=== PATIENT | male | born 1955 | race Caucasian/White ===

== ENCOUNTER 2017-09-09 07:42 | Day surgery (SDC) | payer BC ==
[~2017-09-09 07:42] MED LIST: Buffered Lidocaine 0.9% SYRIN* 5 ML/SYR SYRINGE INTRADERM ONE; Dexamethasone IV* 4 MG/ML 1 ML (4 MG) IV SLOW PU ONE
[2017-09-09] MEDS ORDERED: Buffered Lidocaine 0.9% SYRIN* 5 ML/SYR SYRINGE ONE (07:52)
[2017-09-09] MEDS ORDERED: ceFAZolin 2 GM PREMIX (*) 2 GM/50 ML BAG IVPB ONE (07:52)
[2017-09-09] MEDS ORDERED: Dexamethasone IV* 4 MG/ML 1 ML (4 MG) ONE (07:52)
[2017-09-09] MEDS ORDERED: Midazolam* 1 MG/ML 5 ML VIAL (5 MG) ONE ×2 (08:54→09:24)
[2017-09-09] MEDS ORDERED: Ketorolac INJ* 30 MG/ML 1 ML VIAL ONE (08:58)
[2017-09-09] MEDS ORDERED: Propofol* 10 MG/ML 20 ML BTL IV PUSH ONE (08:58)
[2017-09-09] MEDS ORDERED: Ondansetron INJ* 2 MG/ML VIAL ONE (08:58)
[2017-09-09] MEDS ORDERED: EPINEPHrine AMP 1 MG/ML ONE (09:24)
[2017-09-09] MEDS ORDERED: fentaNYL* 50 MCG/ML 5 ML VIAL (250 MCG VIAL) ONE (09:24)
[2017-09-09] MEDS ORDERED: Atracurium* 10 MG/ML 10 ML VIAL ONE (09:24)
[2017-09-09] MEDS ORDERED: Lidocaine 1% MPF wEPI 200,000* 30 ML SDV ONE (09:26)
[2017-09-09] MEDS ORDERED: Bupivacaine 0.5% SDV PF* 30 ML VIAL ONE (09:26)
[2017-09-09] MEDS ORDERED: Lidocaine 2% PF * 5 ML VIAL ONE (09:28)
[2017-09-09] MEDS ORDERED: DiMENhydriNATE IV* 50 MG/ML VIAL IV PUSH PRN (10:04)
[2017-09-09] MEDS ORDERED: Ondansetron INJ* 2 MG/ML VIAL IV PRN (10:04)
[2017-09-09] MEDS: fentaNYL* 50 MCG/ML 2 ML VIAL (100 MCG VIAL) IV PRN ×4 (10:43→11:24)
[2017-09-09] MEDS ORDERED: fentaNYL* 50 MCG/ML 2 ML VIAL (100 MCG VIAL) ONE ×2 (10:43→10:48)
[2017-09-09] MEDS ORDERED: HYDROmorphone INJ* 1 MG/ML CARPUJECT SYRINGE ONE (10:55)
[2017-09-09] MEDS: HYDROmorphone INJ* 1 MG/ML CARPUJECT SYRINGE IV SLOW PU PRN ×2 (10:55→11:13)
[2017-09-09] MEDS: oxyCODONE/Acetamin 5/325 MG* TAB PO PRN ×2 (12:01→12:02)
[2017-09-09] MEDS ORDERED: oxyCODONE/Acetamin 5/325 MG* TAB ONE (12:02)
[2017-09-09 13:29] VITALS: BP 158/86
--- NOTE | 2017-09-12 02:25 | OP ---
DATE OF OPERATION: 09/09/17 - [facility] DATE OF : 51 SURGEON: Mark Jiménez MD [employer] TECHNICIAN: CHEYENNE Rowe. A physician bricklayer's assistant was required for the length of procedure for assistance with set up, instrumentation, manipulation, retraction of the knee. ANESTHESIOLOGIST: Ahsan Pena MD ANESTHESIA: General anesthesia, local anesthesia with 10 cc of lidocaine and Marcaine 1:1 mixture. PRE-OP DIAGNOSES: 1. Left knee medial meniscus tear. 2. Left knee osteoarthritis. POST-OP DIAGNOSES: 1. Left knee medial meniscus tear. 2. Left knee osteoarthritis. OPERATIVE PROCEDURE: Left knee arthroscopic partial medial meniscectomy. INDICATIONS: The patient is a 62-year-old man, whom I have followed for left knee pain. The patient had had a worsening medial knee pain over multiple years. I first saw him 9 months prior to surgery and he described medial knee pain when he walked, went up and downstairs, or chopped wood. The patient had initially been scheduled for a partial medial meniscectomy by an outside surgeon , but preferred to have his care switched to [facility] in [place]. The patient's pain was insufficiently reduced with ibuprofen, tramadol from an outside doctor, cortisone injection, Celebrex, home exercises, physical therapy. The patient responded insufficiently to that nonoperative management and eventually decided on surgery. The patient had some possible catching in the knee and consistent medial joint line pain, although no locking or swelling. Occasional limp. An MRI had shown a horizontal tear at the body of the medial meniscus with extrusion of some of the medial meniscus body as well as a clearly displaced fragment into the inferomedial gutter of a piece of meniscus. There is some adjacent edema in the medial tibial plateau. The patient opted for surgery. We discussed risks and potential complications of surgery including bleeding, infection, nerve or blood vessel injury, knee pain, stiffness, osteoarthritis, blood clot. ANTIBIOTICS: Ancef 2 g IV. IV FLUIDS: 950 cc crystalloid. TOURNIQUET TIME: 30 minutes at 300 mmHg. COMPLICATIONS: None. ESTIMATED BLOOD LOSS: Minimal. SPECIMEN: None. IMPLANTS: None. DESCRIPTION OF PROCEDURE: Preoperatively in the preoperative holding, a surgical consent was obtained, written. Operative extremity was marked in the preoperative holding. The patient was taken back to the operating room and placed supine on the operating room table. The patient was sedated and LMA was placed. A left proximal thigh tourniquet was applied but not yet elevated. The left distal thigh was placed in a circumferential thigh gramajo. The left lower extremity was prepped with ChloraPrep from foot to thigh. Left lower extremity was draped. Surgical time-out was performed. Esmarch was applied and tourniquet was elevated to 300 mmHg. Anterolateral knee arthroscopy portal was established using standard technique. Diagnostic arthroscopy was commenced. The patient had some fraying, consistent with grade 2 changes on the undersurface of the patella. I next moved down to the medial compartment. The patient had a clear tearing of the body and posterior horn of the medial meniscus. The tear was complex in shape. There was no clearly extruded fragment inferomedially. There was a clear area of grade 4 loss of articular cartilage in or near to rim of the medial tibial plateau. Anteromedial knee arthroscopy portal was established using a standard technique. The medial meniscus was debrided back to a stable rim, slowly and thoughtfully, working from both the anteromedial and anterolateral portals with care not to remove too much meniscus. The patient had a parrot beak-like tear about the posterior horn near the root, but then had a more degenerative-type horizontal tear more medially about the posterior horn. I debrided the meniscus back to a stable rim and confirmed the stability with an arthroscopic probe. There were no clear displaced fragments remaining superior or inferior to the meniscus. I then continued my diagnostic arthroscopy. ACL intact. It should be noted that there was some wear of the medial femoral condyle more centrally, grade 2 changes. In the lateral compartment, there was no clear meniscus injury or articular cartilage injury. I then returned to the patellofemoral compartment and debrided some inflamed synovitic tissue in that compartment. I removed the instruments and fluid. Closed 2 skin incisions with figure-of-8 stitches using nylon 4-0 suture. Injected approximately 10 cc of local anesthetic in the subcutaneous tissue about these 2 surgical incisions. Xeroform, 4x4's, ABDs, [place] bandage from foot to proximal thigh. Cooling unit on the left knee. The patient was awakened, extubated, and brought to the PACU. DISPOSITION: The patient will follow my wound care instructions on my discharge paper work. Percocet as needed for pain. Aspirin for 2 weeks b.i.d. to avoid a blood clot. The patient will schedule physical therapy early next for aggressive strengthening and range of motion. I will see him in 10 to 14 days for a postoperative wound check. [id number]/[facility] #: [id number] ADALI
== END 2017-09-09 12:28 | disposition home or self-care (01) ==
LOC: OR 07:42
PROVIDERS: ATTEND Orthopaedic Surgery
DX: S83.242D Other tear of medial meniscus, current injury, left knee, subsequent encounter (principal); M17.12 Unilateral primary osteoarthritis, left knee; Z87.891 Personal history of nicotine dependence; M25.511 Pain in right shoulder; M54.12 Radiculopathy, cervical region; X58.XXXD Exposure to other specified factors, subsequent encounter; Y92.9 Unspecified place or not applicable
CPT/HCPCS: A9270-GY; J0171; J0690; J1100; J1170; J1885; J2001; J2250; J2405; J2704; J3010

== ENCOUNTER 2018-03-13 15:45 | Emergency (ER) | payer MEDICARE ==
[2018-03-13] MEDS ORDERED: NS 0.9% 1000 ML* 1,000 ML IV ONE (16:10)
[2018-03-13 16:32] LABS: ABS Basophils 0.1 10^3/ul (0-0.2); ABS Eosinophils 0.1 10^3/ul (0-0.6); ABS Lymphocytes 1.3 10^3/ul (1.0-4.8); ABS Monocytes 0.8 10^3/ul (0-0.8); ABS Neutrophils 4.4 10^3/ul (1.5-7.7); ABS Nucleated RBC 0 10^3/ul; Hematocrit 38 % (42-52); Hemoglobin 13.4 g/dl (14.0-18.0); Lymphocyte % 19.7 % (25-47); Mean Corpuscular HGB Conc 35 g/dl (31-36); Mean Corpuscular Hemoglobin 30 pg (27-31); Mean Corpuscular Volume 86 fL (80-94); Mean Platelet Volume 8.3 um3 (7.4-10.4); Nucleated Red Blood Cells % 0.1; Platelet Count 225 10^3/ul (150-450); Red Blood Count 4.44 10^6/ul (4.0-5.4); Red Cell Distribution Width 14 % (10.5-15); White Blood Count 6.6 10^3/ul (3.5-10.8)
--- OUTSIDE RECORDS SUMMARY | 2018-03-13 16:37 | XMS REPORT ---
:1955 External Reference #:[id number] Author Organization [employer] Address [address] [address] Phone [phone] Care Team Providers Name Role Phone Jude Marrero III, MD Primary Care Physician Unavailable Payers Type Date Identification Numbers Payment Provider Subscriber Medicare Primary Effective: Policy Number: Medicare Sherron Winkler JR 2018 [id number] PayID: [id number] [address] [place] [address] [facility] Policy Number: [id number] [facility] Sherron Winkler JR PayID: [id number] [address] [place] [address] Problems Date Description Provider Status Onset: 01/19/2012 Gastroesophageal reflux disease Jude Marrero M.D. Active Onset: 01/19/2012 Disorder of shoulder Jude Marrero M.D. Active Onset: 06/12/2012 Anxiety state Jude Marrero M.D. 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 Previously 1.5 ppd max. Began age 12, quit age 20 Exercise Type/Frequency Exercises sporadically occ active around the house Allergies, Adverse Reactions, Alerts Date Description Reaction Status Severity Comments 01/19/2012 NKDA active 01/19/2012 seasonal active Medications Medication Date Status Form Strength Qnty SIG Indications Ordering Provider Olopatadine HCL 01/13 Active Solution 0.1% 5ml 1 drop to J30.9 Jude Hawley /2015 both eyes Elida, twice a M.D. day as needed Prilosec Active Capsules DR 20mg 30cap 1 po qd Unknown /0000 s Multivitamins Active Tablets 30tab 1 po qd Unknown / s Epipen 2-Oswaldo Active Solution 0.3mg/0.3 1unit use as Unknown / Auto-Inject ML s directed Hydrocortisone Active Cream 0.5% apply Unknown topically twice a day as needed Nasonex Active Suspension 50mcg/Act OTC Unknown / Terazosin HCL Active Capsules 10mg take 1 Unknown capsule by mouth every evening Clonazepam Active Tablets 1mg 1/2 a tab Unknown / in Am; 1 tab in pm (TDD 1.5 mg) Bupropion HCL ER Active Tablets ER 150mg 3 tabs in Unknown (XL) /0000 24HR the morning with food Duloxetine HCL Active Caps DR 30mg 3 tabs by Unknown /0000 Part mouth every day Psyllium Seed Active 1 daily Unknown Husk Oxycodone-Acetami 09/09 Hx Tablets 5-325mg 40tab 1 tabs by Mark bryan s mouth F - every 6 Tino, 08 hours as needed for pain Aspirin 09/09 Hx Tablets 325mg 28tab take 1 s twice a F - day x 14 Tino, 01/29 days Tramadol HCL 08/23 Hx Tablets 50mg 28tab 1-2 S83.242D Rohit s tablets [employer] CUSTODIAN - every 12 /08 hours needed for pain. Methylprednisolon 08/19 Hx TBPK 4mg 21uni take per Mark mcpherson ts dosepak F - instructio Tino, 08/26 ns. Celebrex 12/07 Hx Capsules 100mg 60cap 1 tab by S83.242A s mouth F - twice a Tino, 01/29 day as needed Penicillin V 11/26 Hx Tablets 500mg 20tab 1 tablet J02.9 Rohit s by mouth [employer], CUSTODIAN - twice a 12/06 day for days Lidocaine Viscous 11/26 Hx Solution 2% 100un gargle J02.9 Rohit its with 15ml [employer], CUSTODIAN - every 4 12/03 hours needed for throat pain. Acyclovir 09/11 Hx Ointment 5% 30gm apply 5 Jude E. times/day Elida, - to M.D. 01/13 area. Hydrocodone-Aceta 08/05 Hx Tablets 5-325mg 180ta 1-2 tabs V41.1 Isaias [facility] bs by mouth Scott, CUSTODIAN - q4 hours 12/31 as needed pain limit 6 tabs per day Alprazolam 09/28 Hx Tablets 0.5mg 30tab 1/2-1 by F41.9 Jude Hawley s mouth lana Marrero, - to three M.D. 01/29 times day as needed Prozac 01/12 Hx Capsules 40mg 90cap 1 po qd Rohit Ezra Johnson M.D. 08/23 Prozac 12/15 Hx Capsules 20mg 90cap 1 po qd Jude Rohit shikha Marrero - M.D. 01/12 Bactroban 10/12 Hx Ointment 2% 15gra apply to ms areas tid Elida, - for 5-7 M.D. 11/14 days needed Buspirone HCL 06/12 Hx Tablets 15mg 60tab 1 po bid 300.00 Jude Rohit shikha aMrrero, - M.D. 11/14 Zolpidem Tartrate 06/12 Hx Tablets 10mg 30tab 1 tab by F41.9 Jude Hawley s mouth Elida, - every M.D. 01/29 night at bedtime as needed Carisoprodol Hx Tablets 350mg 45tab one po tid Unknown /0000 s prn spasm - 05/26 Alprazolam Hx Tablets 0.5mg 60tab 1 po bid Unknown /0000 s prn - 09/11 [facility] [place] Wort Hx Capsules 150mg 120ca 2 po qd Unknown /0000 ps - 07/10 Saw [place] Hx Capsules 80mg 1 po daily Unknown /0000 - 09/[address] 81mg 90tab 1 po Unknown /0000 s occasional - ly 01/25 Ciprofloxacin HCL Hx Tablets 500mg pt not Tenkate, /0000 taking Erin Alfred MD 08/23 Ibuprofen Hx Tablets 800mg Tenkate, /0000 Erin Alfred MD 09/28 Metronidazole Hx Tablets 500mg pt not Tenkate, /0000 taking Erin Alfred MD 01/25 Oxycodone/Acetami Hx Tablets 5-325mg pt not Tenkate, nophen /0000 taking Erin Alfred MD 01/25 Finacea Hx Gel 15% Unknown /0000 - 07/16 Amitriptyline HCL Hx Tablets 25mg 1 po at hs Unknown /0000 prn - 01/13 Fluticasone Hx Suspension 50mcg/Act 3unit 1 spray Jude E. Propionate /0000 s Ezra Yadav M.D. 01/13 daily needed Medications Administered in Office Medication Date Status Form Strength Qnty SIG Indications Ordering Provider Triamcinolone 02/07/ Administered Injection Raúl (Kenalog) 2017 MD Waqas Depomedrol 40MG 10/20/ Administered Injection Mark Monroy 2016 MD Tino Depomedrol 40MG 12/07/ Administered Injection Mark Monroy 2016 MD Tino Depomedrol 80MG 01/16/ Administered Injection Laura Sol M.D. Immunizations CPT Code Status Date Vaccine Reaction Lot # [id number] Given 02/24/2018 Tdap - No immediate reaction [id number] Tetanus/Diptheria/Acellular noted. Pertussis [id number] Given 01/30/2018 Pneumococcal Conjugate [id number] Vaccine 13 Valent For Intramuscular Use 03642 Given 08/08/2017 Influenza Virus Vaccine, [id number] Quadrivalent, Split, Preservative Free 05776 Given 08/30/2016 Influenza Virus Vaccine, [id number] Quadrivalent, Split Virus, [place] Use 93592 Given 08/12/2015 Influenza Virus Vaccine, [id number] Quadrivalent, Split, Preservative Free 47687 Given 07/17/2014 Influenza Virus Vaccine, Quadrivalent, Split, Preservative Free 62167 Given 07/17/2014 Influenza Virus Vaccine, [id number] Quadrivalent, Split, Preservative Free 55399 Given 07/01/2014 Zoster (Zostavax) [id number] 99177 Given 08/23/2013 Flu Vaccine Split Virus [id number] Preservative Free For Indiv 3Yr Older [id number] Given 07/19/2012 Fluzone Vaccine [id number] 86880 Given 10/24/2007 Tetanus And Diptheria (Td) For Adult Use Preservative Free Vital Signs Date Vital Result Comment 03/07/2018 Height 67.7 inches 5'7.70" Weight 170.00 lb Heart Rate 78 /min BP Systolic 110 mmHg BP Diastolic 72 mmHg Respiratory Rate 12 /min Pain Level 1 BMI (Body Mass Index) 26.1 kg/m2 01/30/2018 Height 67.7 inches 5'7.70" Weight 182.00 lb Heart Rate 64 /min BP Systolic Sitting 130 mmHg BP Diastolic Sitting 84 mmHg O2 % BldC Oximetry 96 % BMI (Body Mass Index) 27.9 kg/m2 12/08/2017 Height 69 inches 5'9" Heart Rate 71 /min BP Systolic 120 mmHg BP Diastolic 86 mmHg Respiratory Rate 16 /min Body Temperature 97.0 F Pain Level 2 10/20/2017 Height 69 inches 5'9" Weight 191.00 lb Heart Rate 66 /min BP Systolic Sitting 122 mmHg BP Diastolic Sitting 82 mmHg Body Temperature 97.8 F Pain Level 4 BMI (Body Mass Index) 28.2 kg/m2 09/20/2017 Height 69 inches 5'9" Weight 193.00 lb Heart Rate 68 /min Respiratory Rate 14 /min Body Temperature 97.4 F Pain Level 5 BMI (Body Mass Index) 28.5 kg/m2 08/23/2017 Height 69 inches 5'9" Weight 193.00 lb Heart Rate 65 /min BP Systolic Sitting 120 mmHg BP Diastolic Sitting 80 mmHg O2 % BldC Oximetry 98 % BMI (Body Mass Index) 28.5 kg/m2 08/16/2017 Height 69 inches 5'9" Weight 188.00 lb Heart Rate 95 /min Respiratory Rate 14 /min Body Temperature 97.0 F Pain Level 5 BMI (Body Mass Index) 27.8 kg/m2 08/08/2017 Weight 189.00 lb Heart Rate 86 /min BP Systolic Sitting 129 mmHg BP Diastolic Sitting 95 mmHg Body Temperature 97.4 F Pain Level 4 Left knee torn meniscus/arthritis O2 % BldC Oximetry 98 % 06/20/2017 Height 69 inches 5'9" Weight 187.00 lb BP Systolic 128 mmHg BP Diastolic 82 mmHg Respiratory Rate 18 /min Body Temperature 97.1 F Pain Level 4 BMI (Body Mass Index) 27.6 kg/m2 05/16/2017 Height 69 inches 5'9" Weight 187.00 lb Heart Rate 63 /min BP Systolic 142 mmHg BP Diastolic 80 mmHg Body Temperature 96.3 F O2 % BldC Oximetry 99 % BMI (Body Mass Index) 27.6 kg/m2 01/28/2017 Height 69 inches 5'9" Weight 193.00 lb Heart Rate 58 /min BP Systolic Sitting 138 mmHg BP Diastolic Sitting 84 mmHg Respiratory Rate 15 /min Body Temperature 98.0 F O2 % BldC Oximetry 98 % BMI (Body Mass Index) 28.5 kg/m2 12/07/2016 Height 69 inches 5'9" Weight 188.00 lb Heart Rate 69 /min BP Systolic 150 mmHg BP Diastolic 89 mmHg BMI (Body Mass Index) 27.8 kg/m2 11/26/2016 Height 68.5 inches 5'8.50" Weight 189.50 lb Heart Rate 87 /min BP Systolic 140 mmHg BP Diastolic 82 mmHg Body Temperature 99.0 F O2 % BldC Oximetry 97 % BMI (Body Mass Index) 28.4 kg/m2 01/14/2016 Height 68.5 inches 5'8.50" Weight 195.00 lb Heart Rate 62 /min BP Systolic 130 mmHg BP Diastolic 88 mmHg Body Temperature 97.1 F O2 % BldC Oximetry 98 % BMI (Body Mass Index) 29.2 kg/m2 09/11/2015 Weight 189.00 lb Heart Rate 87 /min BP Systolic Sitting 144 mmHg BP Diastolic Sitting 86 mmHg Body Temperature 96.6 F 02/24/2015 Height 69.25 inches 5'9.25" Weight 185.00 lb Pain Level 0 BMI (Body Mass Index) 27.1 kg/m2 01/16/2015 Height 69.25 inches 5'9.25" Weight 185.00 lb Heart Rate 66 /min BP Systolic 133 mmHg BP Diastolic 96 mmHg Pain Level 5 BMI (Body Mass Index) 27.1 kg/m2 12/31/2014 Height 69.25 inches 5'9.25" Weight 187.50 lb Heart Rate 70 /min BP Systolic Sitting 130 mmHg BP Diastolic Sitting 74 mmHg O2 % BldC Oximetry 96 % BMI (Body Mass Index) 27.5 kg/m2 08/05/2014 Weight 189.00 lb Heart Rate 88 /min BP Systolic Sitting 126 mmHg BP Diastolic Sitting 70 mmHg Body Temperature 98.3 F 07/17/2014 Height 68.75 inches 5'8.75" Weight 187.50 lb Heart Rate 57 /min BP Systolic Sitting 123 mmHg BP Diastolic Sitting 77 mmHg Body Temperature 97.3 F O2 % BldC Oximetry 98 % BMI (Body Mass Index) 27.9 kg/m2 07/01/2014 Height 68.75 inches 5'8.75" Weight 191.50 lb Heart Rate 68 /min BP Systolic Sitting 112 mmHg BP Diastolic Sitting 68 mmHg Body Temperature 97.1 F BMI (Body Mass Index) 28.5 kg/m2 2014 Weight 190.00 lb Heart Rate 74 /min BP Systolic Sitting 124 mmHg BP Diastolic Sitting 85 mmHg Body Temperature 96.8 F 09/28/2013 Height 69 inches 5'9" Weight 182.75 lb Heart Rate 64 /min BP Systolic Sitting 142 mmHg BP Diastolic Sitting 88 mmHg BMI (Body Mass Index) 27.0 kg/m2 08/23/2013 Height 68.75 inches 5'8.75" Weight 191.00 lb Heart Rate 64 /min BP Systolic Sitting 116 mmHg BP Diastolic Sitting 78 mmHg BMI (Body Mass Index) 28.4 kg/m2 04/12/2013 Height 68.75 inches 5'8.75" Weight 181.00 lb Heart Rate 62 /min BP Systolic Sitting 136 mmHg BP Diastolic Sitting 84 mmHg BMI (Body Mass Index) 26.9 kg/m2 01/12/2013 Height 68.75 inches 5'8.75" Weight 185.00 lb Heart Rate 74 /min BP Systolic Sitting 136 mmHg BP Diastolic Sitting 76 mmHg BMI (Body Mass Index) 27.5 kg/m2 11/14/2012 Height 68.75 inches 5'8.75" Weight 185.50 lb Heart Rate 66 /min BP Systolic Sitting 122 mmHg BP Diastolic Sitting 72 mmHg BMI (Body Mass Index) 27.6 kg/m2 10/12/2012 Height 68.75 inches 5'8.75" Weight 192.00 lb Heart Rate 88 /min BP Systolic Sitting 102 mmHg BP Diastolic Sitting 68 mmHg BMI (Body Mass Index) 28.6 kg/m2 09/11/2012 Height 68.75 inches 5'8.75" Weight 186.00 lb Heart Rate 76 /min BP Systolic Sitting 110 mmHg BP Diastolic Sitting 70 mmHg BMI (Body Mass Index) 27.7 kg/m2 07/10/2012 Height 68.75 inches 5'8.75" Weight 188.00 lb Heart Rate 60 /min BP Systolic Sitting 104 mmHg BP Diastolic Sitting 74 mmHg BMI (Body Mass Index) 28.0 kg/m2 06/12/2012 Height 69 inches 5'9" Weight 186.00 lb Heart Rate 60 /min BP Systolic Sitting 132 mmHg BP Diastolic Sitting 90 mmHg BMI (Body Mass Index) 27.5 kg/m2 05/26/2012 Height 69 inches 5'9" Weight 184.00 lb Heart Rate 66 /min BP Systolic Sitting 118 mmHg BP Diastolic Sitting 70 mmHg Body Temperature 97.5 F lt ear BMI (Body Mass Index) 27.2 kg/m2 01/19/2012 Height 69 inches 5'9" Weight 189.00 lb Heart Rate 62 /min BP Systolic Sitting 142 mmHg BP Diastolic Sitting 90 mmHg BMI (Body Mass Index) 27.9 kg/m2 Results Test Date Test Result H/L Range Note CBC Auto Diff 08/24/2017 White Blood Count 7.5 10^3/uL 3.5-10.8 Red Blood Count 4.68 10^6/uL 4.0-5.4 Hemoglobin 13.9 g/dL Low 14.0-18.0 Hematocrit 41 % Low 42-52 Mean Corpuscular Volume 87 fL 80-94 Mean Corpuscular Hemoglobin 30 pg 27-31 Mean Corpuscular HGB Conc 34 g/dL 31-36 Red Cell Distribution Width 13 % 10.5-15 Platelet Count 193 10^3/uL 150-450 Mean Platelet Volume 9 um3 7.4-10.4 Abs Neutrophils 5.7 10^3/uL 1.5-7.7 Abs Lymphocytes 0.9 10^3/uL Low 1.0-4.8 Abs Monocytes 0.8 10^3/uL 0-0.8 Abs Eosinophils 0 10^3/uL 0-0.6 Abs Basophils 0 10^3/uL 0-0.2 Abs Nucleated RBC 0 10^3/uL Granulocyte % 76.0 % 38-83 Lymphocyte % 12.4 % Low 25-47 Monocyte % 10.7 % High 1-9 Eosinophil % 0.5 % 0-6 Basophil % 0.4 % 0-2 Nucleated Red Blood Cells % 0 Basic Metabolic Panel 08/24/2017 Sodium 136 mmol/L 133-145 Potassium 3.9 mmol/L 3.5-5.0 Chloride 102 mmol/L 101-111 Co2 Carbon Dioxide 27 mmol/L 22-32 Anion Gap 7 mmol/L 2-11 Glucose 93 mg/dL 70-100 Blood Urea Nitrogen 25 mg/dL High 6-24 Creatinine 1.01 mg/dL 0.67-1.17 BUN/Creatinine Ratio 24.8 High 8-20 Calcium 9.6 mg/dL 8.6-10.3 Egfr Non- 74.4 >60 Egfr 95.6 >60 1 Laboratory test 11/26/2016 Culture Throat SEE RESULT BELOW 2, 3 finding Laboratory test 11/26/2016 Culture Throat Negative finding Laboratory test 08/04/2016 Surgical Interface Order SEE RESULT BELOW 4 , 5 finding Lipid Profile 01/07/2016 Triglycerides 212 mg/dL 6 (Trig/Chol/HDL) Cholesterol 168 mg/dL 7 HDL Cholesterol 30.1 mg/dL 8 LDL Cholesterol 96 mg/dL 9 Laboratory test finding 01/07/2016 Glucose 98 mg/dL 70-100 Hemoglobin A1c (Glyco HGB) 5.2 % Less than 6.0 10 Laboratory test 06/26/2014 Hepatitis C Nonreactive Nonreactive 11, 12 finding Antibody Basic Metabolic Panel 06/26/2014 Sodium 138 mmol/L 133-145 11 Potassium 3.9 mmol/L 3.7-5.6 11 Chloride 104 mmol/L 101-111 11 Co2 Carbon Dioxide 29 mmol/L 22-32 11 Anion Gap 5 mmol/L 2-11 11 Glucose 105 mg/dL High 70-100 11 Blood Urea Nitrogen 19 mg/dL 6-24 11 Creatinine 1.11 mg/dL 0.67-1.17 11 BUN/Creatinine Ratio 17.1 8-20 11 Calcium 9.4 mg/dL 8.6-10.3 11 Egfr Non- 67.3 >60 11 Egfr 86.6 >60 11, 13 Lipid Profile (Trig/Chol/HDL) 06/26/2014 Triglycerides 334 mg/dL 11, 14 Cholesterol 176 mg/dL 11, 15 HDL Cholesterol 26.4 mg/dL 11, 16 LDL Cholesterol 83 mg/dL 11, 17 Basic Metabolic Panel 08/21/2013 Sodium 139 mmol/L 133-145 Potassium 3.9 mmol/L 3.5-5.0 Chloride 104 mmol/L 101-111 Co2 Carbon Dioxide 30.0 mmol/L 22-32 Anion Gap 5.0 mmol/L 2-11 Glucose 100 mg/dL 70-100 Blood Urea Nitrogen 12 mg/dL 6-24 Creatinine 0.90 mg/dL 0.50-1.40 BUN/Creatinine Ratio 13.3 8-20 Calcium 9.3 mg/dL 8.1-9.9 Egfr Non- 86.1 >60 Egfr 110.7 >60 18 CBC Auto Diff 08/21/2013 White Blood Count 5.2 10^3/uL 4.8-10.8 Red Blood Count 4.50 10^6/uL 4.0-5.4 Hemoglobin 13.7 g/dL Low 14.0-18.0 Hematocrit 39 % Low 42-52 Mean Corpuscular Volume 87 fL 80-94 Mean Corpuscular Hemoglobin 30 pg 27-31 Mean Corpuscular HGB Conc 35 g/dL 31-36 Red Cell Distribution Width 13 % 10.5-15 Platelet Count 174 10^3/uL 150-450 Mean Platelet Volume 9 um3 7.4-10.4 Abs Neutrophils 3.6 10^3/uL 1.5-7.7 Abs Lymphocytes 0.9 10^3/uL Low 1.0-4.8 Abs Monocytes 0.7 10^3/uL 0-0.8 Abs Eosinophils 0.1 10^3/uL 0-0.6 Abs Basophils 0 10^3/uL 0-0.2 Abs Nucleated RBC 0.01 10^3/uL Granulocyte % 67.8 % 38-83 Lymphocyte % 17.2 % Low 25-47 Monocyte % 12.6 % High 1-9 Eosinophil % 1.7 % 0-6 Basophil % 0.7 % 0-2 Nucleated Red Blood Cells % 0.2 Urinalysis 07/10/2013 Urine Color Yellow Urine Appearance Clear Urine Specific Eure 1.014 1.010-1.030 Urine Esterase Negative Negative Urine Nitrate Negative Negative Urine Urobilinogen Negative E.U./dL Negative Urine Protein Negative mg/dL Negative Urine pH 7.5 5-9 Urine Blood Negative Negative Urine Ketones Trace mg/dL Negative Urine Bilirubin Negative Negative Urine Glucose Negative mg/dL Negative CBC Auto Diff 07/10/2013 White Blood Count 10.7 10^3/uL 4.8-10.8 Red Blood Count 4.66 10^6/uL 4.0-5.4 Hemoglobin 14.4 g/dL 14.0-18.0 Hematocrit 41 % Low 42-52 Mean Corpuscular Volume 88 fL 80-94 Mean Corpuscular Hemoglobin 31 pg 27-31 Mean Corpuscular HGB Conc 35 g/dL 31-36 Red Cell Distribution Width 13 % 10.5-15 Platelet Count 187 10^3/uL 150-450 Mean Platelet Volume 9 um3 7.4-10.4 Abs Neutrophils 8.9 10^3/uL High 1.5-7.7 Abs Lymphocytes 0.7 10^3/uL Low 1.0-4.8 Abs Monocytes 1.0 10^3/uL High 0-0.8 Abs Eosinophils 0 10^3/uL 0-0.6 Abs Basophils 0 10^3/uL 0-0.2 Abs Nucleated RBC 0.02 10^3/uL Granulocyte % 83.0 % 38-83 Lymphocyte % 6.9 % Low 25-47 Monocyte % 9.6 % High 1-9 Eosinophil % 0.4 % 0-6 Basophil % 0.1 % 0-2 Nucleated Red Blood Cells % 0.1 Comp Metabolic Panel 07/10/2013 Sodium 136 mmol/L 133-145 Potassium 3.4 mmol/L Low 3.5-5.0 Chloride 104 mmol/L 101-111 Co2 Carbon Dioxide 27.0 mmol/L 22-32 Anion Gap 5.0 mmol/L 2-11 Glucose 96 mg/dL 70-100 Blood Urea Nitrogen 16 mg/dL 6-24 Creatinine 1.00 mg/dL 0.50-1.40 BUN/Creatinine Ratio 16.0 8-20 Calcium 9.2 mg/dL 8.1-9.9 Total Protein 7.1 g/dL 6.2-8.1 Albumin 4.1 g/dL 3.2-5.2 Globulin 3.0 g/dL 2-4 Albumin/Globulin Ratio 1.4 1-3 Total Bilirubin 1.5 mg/dL 0.4-1.5 Alkaline Phosphatase 70 U/L 30-110 Alt 48 U/L 14-54 Ast 32 U/L 12-42 Egfr Non- 76.2 >60 Egfr 98.0 >60 19 Laboratory test finding 07/10/2013 Lipase 18 U/L Low 22-51 C Reactive Protein 1.8 mg/dL High Less than 0.5 Laboratory test finding 11/11/2012 Lipase 23 U/L 22-51 Creatine Kinase 122 U/L 0-200 CKMB 1.7 ng/mL 0.3-4.0 20 Troponin I 0.01 ng/mL 0-0.06 21 Myoglobin 47.60 ng/mL 17.4-105.7 C Reactive Protein 2.6 mg/dL High Less than 0.5 Comp Metabolic Panel 11/11/2012 Sodium 136 mmol/L 133-145 Potassium 4.2 mmol/L 3.5-5.0 Chloride 104 mmol/L 101-111 Co2 Carbon Dioxide 21.0 mmol/L Low 22-32 Anion Gap 11.0 mmol/L 2-11 Glucose 91 mg/dL 70-100 Blood Urea Nitrogen 17 mg/dL 6-24 Creatinine 1.20 mg/dL 0.50-1.40 BUN/Creatinine Ratio 14.2 8-20 Calcium 10.0 mg/dL High 8.1-9.9 Total Protein 7.7 g/dL 6.2-8.1 Albumin 4.5 g/dL 3.6-5.4 Globulin 3.2 g/dL 2-4 Albumin/Globulin Ratio 1.4 1-3 Total Bilirubin 1.2 mg/dL 0.4-1.5 Alkaline Phosphatase 83 U/L 30-110 Alt 23 U/L 14-54 Ast 26 U/L 12-42 Egfr Non- 62.0 >60 Egfr 79.7 >60 22 CBC Auto Diff 11/11/2012 White Blood Count 15.5 10^3/uL High 4.8-10.8 Red Blood Count 5.21 10^6/uL 4.0-5.4 Hemoglobin 15.2 g/dL 14.0-18.0 Hematocrit 45 % 42-52 Mean Corpuscular Volume 86 fL 80-94 Mean Corpuscular Hemoglobin 29 pg 27-31 Mean Corpuscular HGB Conc 34 g/dL 31-36 Red Cell Distribution Width 13 % 10.5-15 Platelet Count 220 10^3/uL 150-450 Mean Platelet Volume 10 um3 7.4-10.4 Abs Neutrophils 12.4 10^3/uL High 1.5-7.7 Abs Lymphocytes 1.6 10^3/uL 1.0-4.8 Abs Monocytes 1.4 10^3/uL High 0-0.8 Abs Eosinophils 0.1 10^3/uL 0-0.6 Abs Basophils 0.1 10^3/uL 0-0.2 Abs Nucleated RBC 0 10^3/uL Granulocyte % 79.6 % 38-83 Lymphocyte % 10.4 % Low 25-47 Monocyte % 9.1 % High 1-9 Eosinophil % 0.5 % 0-6 Basophil % 0.4 % 0-2 Nucleated Red Blood Cells % 0 Stool For Blood 11/11/2012 Stool Occult Blood (SEE NOTE) 23 Urine Culture And 11/11/2012 Urine Culture (SEE NOTE) 24 Sensitivities CBC With Manual Diff 08/28/2012 White Blood Count 5.9 10^3/uL 4.8-10.8 Red Blood Count 4.85 10^6/uL 4.0-5.4 Hemoglobin 14.8 g/dL 14.0-18.0 Hematocrit 42 % 42-52 Mean Corpuscular Volume 87 fL 80-94 Mean Corpuscular Hemoglobin 31 pg 27-31 Mean Corpuscular HGB Conc 35 g/dL 31-36 Red Cell Distribution Width 14 % 10.5-15 Platelet Count 186 10^3/uL 150-450 Mean Platelet Volume 10 um3 7.4-10.4 Abs Neutrophils 4.0 10^3/uL 1.5-7.7 Abs Lymphocytes 1.2 10^3/uL 1.0-4.8 Abs Monocytes 0.5 10^3/uL 0-0.8 Abs Eosinophils 0.1 10^3/uL 0-0.6 Abs Basophils 0 10^3/uL 0-0.2 Abs Nucleated RBC 0 10^3/uL Neutrophil % 70.0 % 38-83 Band % 0 % 0-8 Lymphocytes % 16.0 % Low 25-47 Monocytes % 10.0 % 0-13 Eosinophils % 2.0 % 0-6 Basophil % 0 % 0-2 Reactive Lymph % 2.0 % 0-6 Metamyelocytes % 0 % 0-2 Myelocytes % 0 % 0-1 Promyelocytes % 0 % Blast % 0 % RBC Morphology Normal Normal Laboratory test finding 05/30/2012 Ferritin 285 NG/ML 24-336 Vitamin B12 And Folate Serum 05/30/2012 Vitamin B12 507 pg/mL 180-914 Folic Acid > 24.4 NG/ML See Below 25 Retic Count 05/30/2012 Red Cell Count 4.21 CUMM Low 4.6-6.2 Hemoglobin 13.0 g/dL Low 14.0-18.0 Hematocrit 37 % Low 42-52 Reticulocyte Count 1.23 % 0.5-1.5 Corrected Retic 1.0 % 0.5-1.5 Retic Index 0.7 Mean Retic Volume 99.2 Immature Retic Fraction 0.37 RBC Retic Count 4.21 CUMM Low 4.6-6.2 Hematocrit For Retic Coun 37 % Low 42-52 Urine Culture & 05/26/2012 M <SEE 26 Sensitivi NOTE> Laboratory test 05/26/2012 PSA,Diagnostic 0.49 NG/ML 0-4 27 finding CBC With Manual Diff 05/26/2012 White Blood 7.0 CUMM 4.8-10.8 Count Red Cell Count 4.37 CUMM Low 4.6-6.2 Hemoglobin 13.7 g/dL Low 14.0-18.0 Hematocrit 38 % Low 42-52 Mean Corpuscular Volume 88 um3 80-94 Mean Corpuscular Hemoglob 31 pg 27-31 Mean Corpuscular HGB Cone 36 g/dL 32-36 Redcell Distribution WDTH 13 % 10.5-15 Platelet Count 162 CUMM 150-450 Mean Platelet Volume 9.9 um3 7.4-10.4 Absolute Neutrophil Count 5.1 1.5-7.7 Polysegmented Neutrophil 64 % 38-83 Lymphocyte 23 % Low 25-47 Monocyte 12 % 0-13 Eosinophil 1 % 0-6 RBC Morphology NORMAL 1 Because ethnic data is not always readily available, this report includes an eGFR for both -Americans and non- Americans. The National Kidney Disease Education Program (NKDEP) does not endorse the use of the MDRD equation for patients that are not between the ages of 18 and 70, are , have extremes of body size, muscle mass, or nutritional status, or are non- or non-. According to the National Kidney Foundation, irrespective of diagnosis, the stage of the disease is based on the level of kidney function: Stage Description GFR(mL/min/1.73 m(2)) 1 Kidney damage with normal or decreased GFR 90 2 Kidney damage with mild decrease in GFR 60-89 3 Moderate decrease in GFR 30-59 4 Severe decrease in GFR 15-29 5 Kidney failure <15 (or dialysis) 2 [id number] 3 SEE RESULT BELOW Name: PETERSONSHERRON JR : [address]: Rohit Morrell NP Acct: [id number] Unit: [id number] AGE: 61 Location: [facility] Re11/26/16 SEX: M Status: REG REF SPEC: [id number] RACHELLE: 11/26/16-[address]: Rohit Morrell NP REQ: [id number] RECD: 11/26/16 STATUS: COMP _ SOURCE: THROAT SPDESC: ORDERED: Throat Culture COMMENTS: [id number] Procedure Result Reported Site Throat Culture Final 11/28/16- 1200 ML Organism 1 NORMAL NATHALIE Quantity 3+ Throat cultures are clinically indicated to detect the presence of group A strep, arcanobacterium and yeast. In certain cases, predominating organisms will be reported. * ML - MAIN LAB ([facility]) . END OF REPORT * ML=Testing performed at Main Lab DEPARTMENT OF PATHOLOGY, [address] [place] [address] Gregg Oquendo M.D. Director CYNTHIA # [id number] 4 [id number] 5 SEE RESULT BELOW Name: SHERRON WINKLER JR : [address]: Yannick Madsen MD Acct: [id number] Unit: [id number] AGE: 61 Location: [facility] Re08/04/16 SEX: M Status: REG REF SPEC: [id number] RACHELLE: 08/04/16- SUBM DR: Yannick Madsen MD REQ: [id number] RECD: 08/04/16 STATUS: LORENA WILKES DR: Jude Marrero III, MD _ ORDERED: LEVEL IV COMMENTS: [id number] FINAL DIAGNOSIS Esophagus, distal at 42 cm, biopsy: -- Squamous and columnar mucosa with chronic inflammation. -- Negative for intestinal metaplasia and dysplasia. CLINICAL HISTORY Pain in back; Prilosec given in [place]. Mother - bladder cancer and smoker POST-OPERATIVE DIAGNOSIS Larynx - normal; esophagus - normal, esophagogastric 42-43 biopsied x2; stomach - approximately 20 2-6 mm polyps; duodenum - normal x35. Conclusions/Plan: Gastric polyps, Akhtar's per history; gastroesophageal reflux disease, Prilosec GROSS DESCRIPTION The specimen is received in formalin labeled, Biopsy Distal Esophagus at 42 cm, and consists of two bright-pink irregular soft tissue fragments measuring 0.2 x 0.1 x 0.1 cm and 0.3 x 0.2 x 0.2 cm, which are submitted entirely in one cassette. Signed (signature on file) Angie Delarosa MD 1114 END OF REPORT * ML=Testing performed at Main Lab DEPARTMENT OF PATHOLOGY, [address] [place] [address] Gregg Oquendo M.D. Director [facility] # [id number] 6 Desirable <150 Borderline high 150-199 High 200-499 Very High >500 7 Desirable <200 Borderline high 200-239 High >239 8 Low <40 Desirable: 40-60 High: >60 9 Desirable: <100 mg/dL Near Optimal: 100-129 mg/dL Borderline High: 130-159 mg/dL High: 160-189 mg/dL Very High: >189 mg/dL 10 Therapeutic target for the treatment of diabetes Mellitus patients is <7% HBA1C, and in selective patients <6.0%.Please refer to [place] [employer] Diabetic care guidelines for further information. 11 FASTING 12 FASTING 13 Because ethnic data is not always readily available, this report includes an eGFR for both -Americans and non- Americans. The National Kidney Disease Education Program (NKDEP) does not endorse the use of the MDRD equation for patients that are not between the ages of 18 and 70, are , have extremes of body size, muscle mass, or nutritional status, or are non- or non-. According to the National Kidney Foundation, irrespective of diagnosis, the stage of the disease is based on the level of kidney function: Stage Description GFR(mL/min/1.73 m(2)) 1 Kidney damage with normal or decreased GFR 90 2 Kidney damage with mild decrease in GFR 60-89 3 Moderate decrease in GFR 30-59 4 Severe decrease in GFR 15-29 5 Kidney failure <15 (or dialysis) 14 Desirable <150 Borderline high 150-199 High 200-499 Very High >500 15 Desirable <200 Borderline high 200-239 High >239 16 Low <40 Desirable: 40-60 High: >60 17 Desirable <100 Near Optimal 100-129 Borderline high 130-159 High 160-189 Very High >189 18 Because ethnic data is not always readily available, this report includes an eGFR for both -Americans and non- Americans. The National Kidney Disease Education Program (NKDEP) does not endorse the use of the MDRD equation for patients that are not between the ages of 18 and 70, are , have extremes of body size, muscle mass, or nutritional status, or are non- or non-. According to the National Kidney Foundation, irrespective of diagnosis, the stage of the disease is based on the level of kidney function: Stage Description GFR(mL/min/1.73 m(2)) 1 Kidney damage with normal or decreased GFR 90 2 Kidney damage with mild decrease in GFR 60-89 3 Moderate decrease in GFR 30-59 4 Severe decrease in GFR 15-29 5 Kidney failure <15 (or dialysis) 19 Because ethnic data is not always readily available, this report includes an eGFR for both -Americans and non- Americans. The National Kidney Disease Education Program (NKDEP) does not endorse the use of the MDRD equation for patients that are not between the ages of 18 and 70, are , have extremes of body size, muscle mass, or nutritional status, or are non- or non-. According to the National Kidney Foundation, irrespective of diagnosis, the stage of the disease is based on the level of kidney function: Stage Description GFR(mL/min/1.73 m(2)) 1 Kidney damage with normal or decreased GFR 90 2 Kidney damage with mild decrease in GFR 60-89 3 Moderate decrease in GFR 30-59 4 Severe decrease in GFR 15-29 5 Kidney failure <15 (or dialysis) 20 CKMB interpretation should be made in conjunction with clinical symptoms, patient history and EKG changes. 21 Reference Range and Interpretation: TnI (ng/ml) Interpretation Less Than 0.06 ng/mL Not supportive of diagnosis of [place] 0.06 - 0.50 ng/ml Indeterminate: suggest serial studies if clinically indicated. Greater than 0.5 ng/mL Consistent with diagnosis of [place] 22 Because ethnic data is not always readily available, this report includes an eGFR for both -Americans and non- Americans. The National Kidney Disease Education Program (NKDEP) does not endorse the use of the MDRD equation for patients that are not between the ages of 18 and 70, are , have extremes of body size, muscle mass, or nutritional status, or are non- or non-. According to the National Kidney Foundation, irrespective of diagnosis, the stage of the disease is based on the level of kidney function: Stage Description GFR(mL/min/1.73 m(2)) 1 Kidney damage with normal or decreased GFR 90 2 Kidney damage with mild decrease in GFR 60-89 3 Moderate decrease in GFR 30-59 4 Severe decrease in GFR 15-29 5 Kidney failure <15 (or dialysis) 23 RUN DATE: 11/11/12 [facility] LAB LIVE PAGE 1 RUN TIME: [address] [place] [address] Specimen Inquiry Name: PETERSONSHERRON JR : [address]: Erin Hodgson Acct: [id number] Unit: [id number] AGE: 57 Location: ED Re11/11/12 SEX: M Status: REG ER SPEC: [id number] RACHELLE: 11/11/12-1525 [facility] DR: Erin Paredes MD REQ: [id number] RECD: 11/11/12 STATUS: ROLF WILKES DR: Elida LAIRD MD,[facility] _ SOURCE: STOOL SPDESC: ORDERED: Hemoccult Procedure Result Verified Site Stool Occult Blood Final 11/11/12- 1746 ML Stool Occult Blood Negative END OF REPORT * ML=Testing performed at Main Lab DEPARTMENT OF PATHOLOGY, Formerly named [facility] [employer] [place], [place] [address] Gregg Oquendo M.D. Director [facility] Permit #[id number] RUN DATE: 11/13/12 [facility] LAB LIVE PAGE 1 RUN TIME: 928 Formerly named [facility] [employer] [place], [place] [address] Specimen Inquiry Name: SHERRON WINKLER : [address]: Erin Hodgson Acct: [id number] Unit: [id number] AGE: 57 Location: ED Re11/11/12 SEX: M Status: DEP ER SPEC: [id number] RACHELLE: 11/11/12 [facility] DR: Erin Paredes MD REQ: [id number] RECD: 11/11/12 STATUS: ROLF WILKES DR: Jude Marrero III, MD _ SOURCE: URINE SPDESC: ORDERED: Urine Culture Procedure Result Verified Site Urine Culture Final 11/13/12- 927 ML No Growth Day 2 (<1,000 CFU/mL) END OF REPORT * ML=Testing performed at Main Lab DEPARTMENT OF PATHOLOGY, [address] [place] [address] Gregg Oquendo M.D. Director [facility] Permit #[id number] Please note: New reference range, effective 10/14/11 NORMAL REFERENCE RANGE: GREATER THAN 4.1 NG/ML 26 RUN DATE: 05/28/12 [facility] NMI LIVE PAGE 1 RUN TIME: 1519 Specimen Inquiry RUN USER: INTERFACE Name: SHERRON WINKLER JR Status: REG REF Re05/26/12 Age/Sex: 57/M Unit#: [id number] Location: [facility] : [birth year] SPEC #: [id number] RACHELLE: 05/26/12 STATUS: ROLF REQ #: [id number] RECD: 05/26/[address]: Fantasma PERRY,Ana Lal SOURCE: URINE ENTR: 05/26/[address] [facility] DR: [facility]: ORDERED: URINE C S QUERIES: MEDENT REQUISITION # [id number] SPECIMEN DESCRIPTION: URINE, RANDOM ACT WKST: UR 05/28/12 #1 Procedure Result Verified Site > URINE CULTURE SENSITIVI Final -1519 ML FINAL: NO GROWTH DAY 2 (<1,000 CFU/mL) ML - [facility] Permit #[id number] [address] [place] [address] DEPARTMENT OF PATHOLOGY, [address] [place] [address] [facility] Permit #[id number] Gregg Oquendo M.D. Director Candis Montes M.D. Ostomy Rn 27 * SERUM LEVELS OF PSA MEASURED USING THE SAMSON NESTOR ACCESS HYBRITECH IMMUNOASSAY SHOULD NOT BE INTERPRETED ABSOLUTE EVIDENCE OF THE PRESENCE OR ABSENCE OF DISEASE. THE PSA VALUE SHOULD BE USED IN CONJUNCTION WITH OTHER PERTINENT CLINICAL DIAGNOSTIC PROCEDURES. A PSA value in the range of 0.1 to 0.6 ng/ml is indeterminate if being used as an indicator of recurrent or residual disease. . The values obtained with different assay methods of kits cannot be used interchangeably. Procedures Date CPT Code Description Status 02/07/2018 11045 Injection Intralesional Up To And Including 7 Lesions Completed 02/07/2018 97356 Removal Skin Tags Up To 15 Completed 10/20/2017 43117 Inject/Drain Joint/Bursa Major Completed 09/09/2017 14172 Arthroscopy,Knee,Meniscectomy Medial Or Lateral Completed 09/09/2017 97521 Arthroscopy,Knee,Meniscectomy Medial Or Lateral Completed 08/23/2017 50120 EKG Tracing & Interpretation Completed 06/07/2017 55575 Repair Immediate Wound 2.6-7.5CM Completed Scalp/Axillae/Trunk/Extremities 06/07/2017 32188 Excise Benign Lesion 2.1-3CM Trunk/Arm/Leg Completed 06/07/2017 27719 Excise Benign Lesion 2.1-3CM Trunk/Arm/Leg Completed 12/07/2016 79284 Inject/Drain Joint/Bursa Major Completed 02/11/2015 08922 Trigger Finger Release Incision / Tendon Sheath Completed Incision 01/16/2015 44829 Inject Tendon Sheath Or Ligament Aponeurosis Eg Plantar Completed Fascia 08/21/2013 88990 EKG, Interpretation Only Completed 07/28/2012 Colonoscopy Completed 12/03/2005 Colonoscopy Completed Encounters Type Date Location Provider CPT E/M Dx Office Visit 02/07/2018 10:10a [facility] Dermatology Raú[place] [address] L73.8 L82.1 L91.8 L53.8 Z78.9 R20.8 L91.0 Office Visit 08/23/2017 10:20a [facility] [place] [address] Z01.818 [place] S83.242D K21.9 Office Visit 08/16/2017 8:45a [facility] Mark Monroy 13486 S83.242D Of Kevin Jiménez MD M25.511 M54.12 M17.12 Office Visit 08/08/2017 2:40p [facility] Internal Medicine Jude Marrero, 17841 F41.9 - Nia White Z23 Office Visit 06/20/2017 10:00a [facility] Of Mark Jiménez, 11742 M16.12 Kevin SAUNDERS S83.242D M25.552 M17.12 Office Visit 05/23/2017 1:30p [facility] [place]ermatology Raú[place] [address] L72.0 L73.8 Office Visit 05/16/2017 11:40a [facility] Internal Medicine Jude Marrero 68247 J31.0 - Nia White Office Visit 01/28/2017 11:00a [facility] Internal Medicine Jude Marrero 81825 Z00.00 - Nia White K21.9 F41.9 E78.2 Office Visit 12/07/2016 10:00a [facility] Mark Jiménez 20079 M23.232 Of Kevin SAUNDERS M17.12 Office Visit 11/26/2016 2:20p [facility] [place] [address] J02.9 - [place] Office Visit 01/14/2016 10:40a [facility] Internal Medicine Jude Marrero, 56391 Z00.00 - Stalin White E78.2 R73.01 K21.9 F41.9 J30.9 Office Visit 09/11/2015 2:00p [facility] Internal Medicine Jude Marrero, 83853 M79.675 - Stalin White Office Visit 01/16/2015 10:00a [facility] Laurashavon Sol, 15820 727.03 Of Kevin White Office Visit 12/31/2014 9:00a [facility] Internal Medicine Jude Marrero, 59688 V70.0 - Stalin White 300.00 530.81 272.2 790.21 Office Visit 08/05/2014 4:00p [facility] [place] [address] 918.2 - [place] Office Visit 07/01/2014 10:00a [facility] Internal Medicine Jude Marrero, 58982 788.41 - Stalin White V77.91 V04.89 V05.8 Office Visit 2014 11:00a [facility] Internal Medicine Jude Marrero, 75611 388.30 - Stalin White V77.91 V77.1 V73.89 Office Visit 09/28/2013 10:40a [facility] Internal Medicine Jude Marrero, 58333 300.00 - Stalin White 530.81 Office Visit 08/23/2013 10:00a [facility] Internal Medicine Jude Marrero, 10342 562.11 - Stalin White 300.00 530.81 726.19 V04.81 Office Visit 04/12/2013 9:40a [facility] Internal Medicine Jude Marrero, 99450 300.00 - [place] Cindy Office Visit 01/12/2013 11:00a [facility] Internal Medicine Jude Marrero, 15291 300.00 - Stalin White Office Visit 11/14/2012 9:40a [facility] Internal Medicine Jude Marrero, 91440 562.11 - Stalin White Office Visit 10/12/2012 4:00p [facility] Internal Medicine Jude Marrero, 25647 684 - Stalin White Office Visit 09/11/2012 10:20a [facility] Internal Medicine Jude Marrero, 48610 300.00 - Stalin White Office Visit 07/10/2012 10:40a [facility] Internal Medicine Jude Marrero, 82182 300.00 - Stalin White Office Visit 06/12/2012 10:20a [facility] Internal Medicine Jude Marrero, 75376 300.00 - Stalin White Office Visit 05/26/2012 10:30a [facility] Internal Medicine Ana Meek, 72606 789.04 - Stalin N.PRohit Office Visit 01/19/2012 11:00a [facility] Internal Medicine Jude Marrero, 76742 V70.0 - Stalin White 530.81 726.19 Plan of Care No Information Available
[2018-03-13] MEDS ORDERED: HYDROmorphone INJ* 2 MG/ML CARPUJECT SYRINGE IV SLOW PU ONE ×2 (16:40→18:54)
[2018-03-13 16:44] LABS: INR 0.98 (0.77-1.02)
[2018-03-13] MEDS ORDERED: Iohexol 300* (CONTRAST) 10 ML SDV IV ONE (17:26)
[2018-03-13 18:35] LABS: Urine Appearance Clear; Urine Blood Negative (Negative); Urine Color Yellow; Urine Ketones 1+ (Negative); Urine Protein Negative (Negative); Urine Specific Gravity 1.008 (1.010-1.030); Urine Urobilinogen Negative (Negative)
--- NOTE | 2018-03-13 18:38 | RAD ---
INDICATION: 8 foot fall from ladder. Hematoma on forehead. COMPARISON: August 16, 2017 radiographs. TECHNIQUE: Multidetector CT images foramen magnum to lung apices without contrast. Multiplanar reformation. REPORT: Normal vertebral alignment accounting for exam positioning without spondylolisthesis or subluxation at any level. Negative for cervical vertebral body or posterior element fracture. Negative for paravertebral hematoma. Multilevel degenerative spondylosis and facet joint osteoarthritis. At C3-C4 uncinate process spurring and facet joint osteoarthritis results in slight bilateral foraminal stenosis. At C5-C6 disc space narrowing is severe. Uncinate process spurring and facet joint osteoarthritis results in mild bilateral foraminal stenosis. IMPRESSION: No CT evidence for traumatic cervical spine injury.
--- NOTE | 2018-03-13 18:52 | RAD ---
Indication: Fall from ladder striking forehead. Large forehead hematoma. Comparison: No relevant prior exams available on the [facility] PACS for comparison. Technique: Noncontrast CT vertex of skull through foramen magnum. Report: Large LEFT forehead scalp hematoma measuring up to 4.2 cm transverse by 1.4 cm AP. Negative for calvarial or skull base fracture. The sulci, ventricles, and basal cisterns are normal for age. Kraft matter white matter differentiation is preserved without evidence for edema. No intra or extra axial hemorrhage, mass, or fluid collection detected. Unremarkable orbital contents. Incidental RIGHT anterior paramidline 1 cm maximum dimension calcified/ossified lesion contiguous with the inner table of the frontal bone most consistent with an exostosis or calcified meningioma. The visualized paranasal sinuses and mastoid air spaces are clear. IMPRESSION: LEFT forehead scalp hematoma. No CT evidence for calvarial fracture or traumatic brain injury.
[2018-03-13] MEDS ORDERED: NS 0.9% 1000 ML* 2,000 ML IV ONE (18:54)
--- NOTE | 2018-03-13 18:57 | RAD ---
INDICATION: Fall from ladder with large LEFT forehead hematoma. COMPARISON: CT head and cervical spine exams of the same date. TECHNIQUE: Multidetector CT base of the skull through mandible without contrast. Multiplanar reformation. REPORT: Artifact from dental amalgam degrades image quality. LEFT preseptal and nasolabial fold soft tissue swelling contiguous with the scalp hematoma. Small focus of subcutaneous emphysema at the peripheral LEFT supraorbital margin. Negative for post septal orbital edema. Symmetric ocular globes. Bilateral minimally impacted longitudinally oriented nasal bone fractures. The orbital and maxillary sinus margins, zygomatic arches, lamina papyracea, base of the maxilla, and pterygoid plates are intact. The mandible is intact. Normal temporal mandibular joint alignment. Normally aerated paranasal sinuses. IMPRESSION: Bilateral minimally impacted longitudinally oriented nasal bone fractures. LEFT preseptal and nasolabial fold soft tissue swelling contiguous with the scalp hematoma. Small focus of subcutaneous emphysema at the peripheral LEFT supraorbital margin.
--- NOTE | 2018-03-13 19:09 | RAD ---
INDICATION: Pain post fall from ladder. Memory loss. COMPARISON: August 24, 2016 CT abdomen pelvis TECHNIQUE: Multidetector CT images were obtained from the lung apices to the ischial tuberosities with 107 mL Omnipaque 300 IV contrast. No oral contrast administered. Routine and bone algorithm multiplanar reformation. CHEST REPORT: No focal pulmonary lesion, compelling alveolar consolidation, pleural effusion, pneumothorax. Negative for mediastinal hematoma. Negative for thoracic lymphadenopathy, cardiomegaly, pericardial effusion. Negative for sternal, rib, or thoracic spine or other thoracic fracture. Characteristic osseous hemangioma at the T11 vertebral body without concern. Negative for superficial soft tissue hematoma. CHEST IMPRESSION: No CT evidence for traumatic thoracic injury. ABDOMEN PELVIS REPORT: Few small hypodense hepatic lesions without change compared with the 2016 exam without concern most consistent with cysts. No CT abnormality of the gallbladder, pancreas, spleen. Negative for CT abnormality of the upper GI or small bowel. Postsurgical change of sigmoid colectomy. No suspicious finding at the sigmoid rectal bowel anastomosis. The appendix is not visualized. Negative for ascites, free air, hernias. Normal adrenal glands. Few bilateral sharply circumscribed hypodense renal cortical lesions without change consistent with cysts. 1.5 cm maximum dimension partial staghorn calculus at the inferior pole of the LEFT kidney. Negative for hydronephrosis. Unremarkable nondilated ureters and urinary bladder. Unremarkable partially visualized male urogenital structures. Negative for lymphadenopathy. Normal diameter abdominal aorta and iliac arteries with mild atherosclerotic plaque. Physiologic partial distention of the IVC. Negative for superficial or retroperitoneal hematoma. Negative for lumbar sacral spine, pelvic, or proximal femur fracture or articular malalignment. ABDOMEN PELVIS IMPRESSION: 1. No CT evidence for traumatic abdominal pelvic visceral injury or fracture. 2. 1.5 cm maximum dimension partial staghorn calculus at the inferior pole of the LEFT kidney. Negative for hydronephrosis.
[2018-03-13] MEDS ORDERED: Amoxicillin/Clavulanate TAB* 875 MG PO ONE (20:30)
[2018-03-13] MEDS ORDERED: oxyCODONE/Acetamin 5/325 MG* TAB PO ONE (20:30)
--- NOTE | 2018-03-13 21:05 | RAD ---
Indication: Pain post fall from ladder. Comparison: August 16, 2017 Technique: Internal and external rotation AP and scapular Y views RIGHT shoulder Report: Negative for fracture. Normal acromioclavicular and glenohumeral joint alignment. Mild AC joint osteophytosis. Unremarkable soft tissue contours. IMPRESSION: Negative for fracture or dislocation.
--- NOTE | 2018-03-13 21:08 | RAD ---
INDICATION: Pain post fall from. COMPARISON: No relevant prior exams available on the [facility] [place]ACS for comparison. TECHNIQUE: AP, lateral, and oblique views RIGHT elbow. REPORT: Normal articular alignment. Assessment for joint effusion is limited due to obliquity on the lateral view. Subtle subchondral bone contour irregularity at the radial head is consistent with a minimally impacted fracture. Suggestion of an opposing osteochondral fracture at the capitellum. Soft tissue swelling most prominent over the dorsal and medial aspects. IMPRESSION: Subtle subchondral bone contour irregularity at the radial head is consistent with a minimally impacted fracture. Suggestion of an opposing osteochondral fracture at the capitellum.
--- NOTE | 2018-03-13 21:45 | RAD ---
Indication: Traumatic injury with radiographic findings of radial head fracture and potential osteochondral lesion at the capitellum. True lateral view requested to further assess for joint effusion. Comparison: RIGHT elbow exam of the same date. Technique: Lateral radiograph RIGHT elbow REPORT AND IMPRESSION: Displacement of the anterior fat pad evident consistent with joint effusion. Irregular trabecular and subchondral contour at the radial head corresponding with fracture noted on earlier exam of the same date.
[2018-03-13 22:47] VITALS: BP 140/83
--- NOTE | 2018-03-14 01:04 | ED ---
Betty Wright Rebecca, scribed for Estela Caraballo MD on 03/13/18 at 1632 . Head Injury - HPI Summary HPI Summary: Pt is a 63 y/o M BIBA who presents to ED c/o head pain s/p fall. 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 Fall estimated to be about 6-8 feet high and was unwitnessed. A coworker called for him after hearing the sound and the pt immediately responded. Negative LOC and he remembers the fall. Incident occurred while the pt was at work, volunteering with the [employer]. At 1550, the pt received 50 mcg of Fentanyl IV, administered by EMS, which did not improve symptoms. 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 Currently, his CC is pain on the left side of the head, above the eye. Pain is currently moderate, ranked 7/10, aggravated and alleviated by nothing. Notes SOB immediately after the incident, which has improved. Additionally c/o right elbow and right shoulder pain as well as nose pain. Notes L knee pain which he states is chronic. Denies epistaxis and L shoulder, L wrist, neck and rib pain, CP and abd pain. While being evaluated, vitals signs consisted of a HR of 88 bpm, O2 sat of 100, BP of 152/103 and a respiratory rate between 22 and 25. Is not on blood thinners. PSHx rotator cuff (L shoulder - 2010), sigmoid colectomy (2012). - History Of Current Complaint Chief Complaint: EDFacialInjury Stated Complaint: FALL/HEAD INJURY Hx Obtained From: Patient Mechanism Of Injury: Fall From Height Of: - 6-8 feet Onset/Duration: Started Minutes Ago, Traumatic, Still Present Onset of Pain: Minutes - 25 minutes, Prior to Arrival Severity Currently: Moderate Severity Initially: Moderate Pain Intensity: 7 Pain Scale Used: 0-10 Numeric Location of Head Injury: Frontal - Left frontal above the eye Location: Discrete At: - Region of injury - left frontal above the eye Character: Dull Aggravating Factor(s): Other: - Nothing Alleviating Factor(s): Other: - Nothing Associated Signs And Symptoms: Other: - R elbow and shoulder pain Anticoagulant Therapy: Other: - none - Allergies/Home Medications Allergies/Adverse Reactions: Allergies Allergy/AdvReac Type Severity Reaction Status Date / Time No Known Allergies Allergy Verified 09/09/17 08:00 Home Medications: Home Medications Amphetamine MIXED SALT TAB* [Adderall TAB*] 20 mg PO .QAM + NOON 03/13/18 [ History Confirmed 03/13/18] DULoxetine DR CAP* [Cymbalta CAP*] 90 mg PO DAILY 03/13/18 [History Confirmed ] Omeprazole CAP* [Prilosec CAP* 20 MG] 20 mg PO DAILY 03/13/18 [History Confirmed 03/13/18] Terazosin CAP* [Hytrin CAP*] 1 mg PO QPM 03/13/18 [History Confirmed 03/13/18] clonazePAM TAB(*) [KlonoPIN TAB(*)] 0.5 mg PO TID PRN 03/13/18 [History Confirmed 03/13/18] PMH/Surg Hx/FS Hx/Imm Hx Previously Healthy: No Endocrine/Hematology History: Denies: Hx Diabetes, Hx Sickle Cell Disease Cardiovascular History: Denies: Hx Congestive Heart Failure, Hx Hypertension, Hx Pacemaker/ICD, Other Cardiovascular Problems/Disorders Respiratory History: Reports: Hx Asthma Denies: Other Respiratory Problems/Disorders GI History: Reports: Hx Gastroesophageal Reflux Disease, Other GI Disorders - DIVERTICULITIS 2012 History: Denies: Hx Renal Disease, Other Problems/Disorders Musculoskeletal History: Reports: Hx Bursitis Comment Only: Hx Arthritis - left knee Sensory History: Reports: Hx Contacts or Glasses - READING Denies: Hx Hearing Aid Opthamlomology History: Reports: Hx Contacts or Glasses - READING Neurological History: Denies: Other Neuro Impairments/Disorders Psychiatric History: Reports: Hx Anxiety, Hx Depression Denies: Hx Panic Disorder - Cancer History Cancer Type, Location and Year: 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 Sigmoid colectomy 2012 [facility]. TONSILLECTOMY A CHILD. Rt PINKY TRIGGER FINGER Hx Anesthesia Reactions: No Infectious Disease History: No Infectious Disease History: Denies: Traveled Outside the [place] in Last 30 Days - Family History Known Family History: Positive: Cardiac Disease - father - CABG at 92 - Social History Lives: With Family Alcohol Use: Daily Alcohol Amount: 1 DRINK DAILY Substance Use Type: Reports: None Smoking Status (MU): Light Every Day Tobacco Smoker Type: Cigars Amount Used/How Often: RARE CIGAR Review of Systems Positive: Other - Head pain s/p fall Positive: Other - pain above left eye with left frontal hematoma . Negative: Photophobia, Blurred Vision, Diplopia, Drainage, Erythema Positive: Other - Nose pain. Negative: Epistaxis, Dental Pain, Nasal Discharge Negative: Chest Pain Respiratory: Negative Negative: Abdominal Pain Positive: Other - R shoulder and elbow pain, L knee pain (chronic); NEGATIVE: L shoulder, L wrist, neck and rib pain Positive: Bruising - left frontal and left orbit, +hematoma supraorbital Positive: Headache Psychological: Normal All Other Systems Reviewed And Are Negative: Yes Physical Exam - Summary Physical Exam Summary: Appearance: Ill-appearing, moderate pain distress, well-nourished Skin: Warm, color reflects adequate perfusion, abrasions on both elbows, dry, + hematoma and abrasions as below Head: Abrasion that is 3 cm x 2 cm x 1 mm on the bridge of his nose with swelling and ecchymosis; hematoma that is 7 cm x 3 cm x 5 cm above his left eye with a stellate abrasion/laceration that is 2 cm x 2mm x 1mm, bleeding controlled, abrasions bilat olecranon Eyes: Conjunctiva clear, pupils are 3 mm, equal, and reactive to light, EOMI ENT: Normal inspection, TMs without blood, no blood in the nostrils Neck: Supple, no nodes, no JVD, C-collared upon evaluation. No spinal tenderness Respiratory: Lungs clear, Normal breath sounds, no respiratory distress Cardio: RRR, No murmur, pulses normal, brisk capillary refill Abdomen: Soft, nontender, no masses, no organomegaly, no guarding, no rebound Bowel sounds: present Musculoskeletal: Strength Intact/ROM intact. No calf tenderness. No edema. No stepoffs and no deformities in the thoracic or lumbar spine, no rib tenderness, has a flap laceration that is 2 cm x 1 mm x 3 mm at the DIP of his right thumb Psychological: Normal Neuro: A&O x3, CN II-XII intact, motor function 5/5, sensation intact, cerebellar normal heel to lopes, reflexes 2+ GCS: 15 Triage Information Reviewed: Yes Vital Signs On Initial Exam: Initial Vitals Temp Pulse Resp BP Pulse Ox 98.3 F 88 16 152/103 99 03/13/18 16:14 03/13/18 16:14 03/13/18 16:14 03/13/18 16:14 03/13/18 16:14 Vital Signs Reviewed: Yes Procedures - Laceration/Wound Repair 1 Location: head - Above the left eye Description: Stellate Length, Depth and Shape: 2 cm x 2mm x 1mm (stellate) Betadine Prep?: No Laceration/Wound Explored: clean, no foreign body removed Closure: Skin Adhesive Debridement: None Suture Type: Other - dermabond Layer Closure?: No Sterile Dressing Applied?: No 2 Location: upper extremity - Right thumb - DIP joint Description: Linear - flap Length, Depth and Shape: 2 cm x 1 mm x 3 mm - flap laceration Betadine Prep?: No Laceration/Wound Explored: clean, no foreign body removed Closure: Skin Adhesive Debridement: None Suture Type: Other - dermabond Layer Closure?: No Sterile Dressing Applied?: No 3 Location: face - Bridge of the nose Description: Linear Length, Depth and Shape: 3 cm x 2 cm x 1 mm Betadine Prep?: No Laceration/Wound Explored: clean, no foreign body removed Closure: Skin Adhesive Debridement: None Suture Type: Other - dermabond Layer Closure?: No Sterile Dressing Applied?: No Diagnostics - Vital Signs Vital Signs Temp Pulse Resp BP Pulse Ox 03/13/18 16:14 98.3 F 88 16 152/103 99 - Laboratory Lab Results: Lab Results 03/13/18 03/13/18 03/13/18 Range/Units 16:24 16:24 16:24 WBC 6.6 (3.5-10.8) 10^3/ul RBC 4.44 (4.0-5.4) 10^6/ul Hgb 13.4 L (14.0-18.0) g/dl Hct 38 L (42-52) % MCV 86 (80-94) fL MCH 30 (27-31) pg MCHC 35 (31-36) g/dl RDW 14 (10.5-15) % Plt Count 225 (150-450) 10^3/ul MPV 8.3 (7.4-10.4) um3 Neut % (Auto) 66.5 (38-83) % Lymph % (Auto) 19.7 L (25-47) % [place] % (Auto) 11.6 H (0-7) % Eos % (Auto) 1.0 (0-6) % Baso % (Auto) 1.2 (0-2) % Absolute Neuts (auto) 4.4 (1.5-7.7) 10^3/ul Absolute Lymphs (auto) 1.3 (1.0-4.8) 10^3/ul Absolute Monos (auto) 0.8 (0-0.8) 10^3/ul Absolute Eos (auto) 0.1 (0-0.6) 10^3/ul Absolute Basos (auto) 0.1 (0-0.2) 10^3/ul Absolute Nucleated RBC 0 10^3/ul Nucleated RBC % 0.1 INR (Anticoag Therapy) 0.98 (0.77-1.02) Sodium 137 L (139-145) mmol/L Potassium 3.4 L (3.5-5.0) mmol/L Chloride 102 (101-111) mmol/L Carbon Dioxide 21 L (22-32) mmol/L Anion Gap 14 H (2-11) mmol/L BUN 18 (6-24) mg/dL Creatinine 1.18 H (0.67-1.17) mg/dL Est GFR ( Amer) 79.7 (>60) Est GFR (Non-Af Amer) 62.0 (>60) BUN/Creatinine Ratio 15.3 (8-20) Glucose 105 H (70-100) mg/dL Lactic Acid (0.5-2.0) mmol/L Calcium 9.4 (8.6-10.3) mg/dL Total Bilirubin 0.80 (0.2-1.0) mg/dL AST 35 (13-39) U/L ALT 29 (7-52) U/L Alkaline Phosphatase 60 (34-104) U/L Total Creatine Kinase 403 H (10-223) U/L Troponin I 0.00 (<0.04) ng/mL Total Protein 6.9 (6.4-8.9) g/dL Albumin 4.3 (3.2-5.2) g/dL Globulin 2.6 (2-4) g/dL Albumin/Globulin Ratio 1.7 (1-3) Amylase 27 L (29-103) U/L Lipase 14 (11.0-82.0) U/L Urine Color Urine Appearance Urine pH (5-9) Ur Specific [place] (1.010-1.030) Urine Protein (Negative) Urine Ketones (Negative) Urine Blood (Negative) Urine Nitrate (Negative) Urine Bilirubin (Negative) Urine Urobilinogen (Negative) Ur Leukocyte Esterase (Negative) Urine Glucose (Negative) Serum Alcohol < 10 (<10) mg/dL 03/13/18 03/13/18 Range/Units 16:24 18:20 WBC (3.5-10.8) 10^3/ul RBC (4.0-5.4) 10^6/ul Hgb (14.0-18.0) g/dl Hct (42-52) % MCV (80-94) fL MCH (27-31) pg MCHC (31-36) g/dl RDW (10.5-15) % Plt Count (150-450) 10^3/ul MPV (7.4-10.4) um3 Neut % (Auto) (38-83) % Lymph % (Auto) (25-47) % [place] % (Auto) (0-7) % Eos % (Auto) (0-6) % Baso % (Auto) (0-2) % Absolute Neuts (auto) (1.5-7.7) 10^3/ul Absolute Lymphs (auto) (1.0-4.8) 10^3/ul Absolute Monos (auto) (0-0.8) 10^3/ul Absolute Eos (auto) (0-0.6) 10^3/ul Absolute Basos (auto) (0-0.2) 10^3/ul Absolute Nucleated RBC 10^3/ul Nucleated RBC % INR (Anticoag Therapy) (0.77-1.02) Sodium (139-145) mmol/L Potassium (3.5-5.0) mmol/L Chloride (101-111) mmol/L Carbon Dioxide (22-32) mmol/L Anion Gap (2-11) mmol/L BUN (6-24) mg/dL Creatinine (0.67-1.17) mg/dL Est GFR ( Amer) (>60) Est GFR (Non-Af Amer) (>60) BUN/Creatinine Ratio (8-20) Glucose (70-100) mg/dL Lactic Acid 2.0 (0.5-2.0) mmol/L Calcium (8.6-10.3) mg/dL Total Bilirubin (0.2-1.0) mg/dL AST (13-39) U/L ALT (7-52) U/L Alkaline Phosphatase (34-104) U/L Total Creatine Kinase (10-223) U/L Troponin I (<0.04) ng/mL Total Protein (6.4-8.9) g/dL Albumin (3.2-5.2) g/dL Globulin (2-4) g/dL Albumin/Globulin Ratio (1-3) Amylase (29-103) U/L Lipase (11.0-82.0) U/L Urine Color Yellow Urine Appearance Clear Urine pH 8.0 (5-9) Ur Specific [place] 1.008 L (1.010-1.030) Urine Protein Negative (Negative) Urine Ketones 1+ A (Negative) Urine Blood Negative (Negative) Urine Nitrate Negative (Negative) Urine Bilirubin Negative (Negative) Urine Urobilinogen Negative (Negative) Ur Leukocyte Esterase Negative (Negative) Urine Glucose Negative (Negative) Serum Alcohol (<10) mg/dL Result Diagrams: 03/13/18 16:24 03/13/18 16:24 Lab Statement: Any lab studies that have been ordered have been reviewed, and results considered in the medical decision making process. - Radiology Shoulder XR Xray Interpretation: No Acute Changes - Negative for fracture or dislocation. ED physician reviewed this radiology report. Radiology Interpretation Completed By: Radiologist Elbow XR Xray Interpretation: Positive (See Comments) - Subtle subchondral bone contour irregularity at the radial head is consistent with a minimally impacted fracture. Suggestion of an opposing osteochondral fracture at the capitellum. ED physician reviewed this radiology report. Radiology Interpretation Completed By: Radiologist - CT Maxillofacial CT CT Interpretation: Positive (See Comments) - Bilateral minimally impacted longitudinally oriented nasal bone fractures. LEFT preseptal and nasolabial fold soft tissue swelling contiguous with the scalp hematoma. Small focus of subcutaneous emphysema at the peripheral LEFT supraorbital margin. ED physician reviewed this radiology report. CT Interpretation Completed By: Radiologist Chest/Abd/Pel CT CT Interpretation: No Acute Changes - 1. No CT evidence for traumatic abdominal pelvic visceral injury or fracture. 2. 1.5 cm maximum dimension partial staghorn calculus at the inferior pole of the LEFT kidney. Negative for hydronephrosis. ED physician reviewed this radiology report. CT Interpretation Completed By: Radiologist C-Spine CT CT Interpretation: No Acute Changes - No CT evidence for traumatic cervical spine injury. ED physician reviewed this radiology report. CT Interpretation Completed By: Radiologist Brain CT CT Interpretation: No Acute Changes - LEFT forehead scalp hematoma. No CT evidence for calvarial fracture or traumatic brain injury. ED physician reivewed this radiology report and agrees. CT Interpretation Completed By: Radiologist - EKG 1628 Cardiac Rate: NL - 84 bpm EKG Rhythm: Sinus Rhythm Ectopy: None EKG Interpretation: Prolonged QTc (559), left axis -31, no acute changes EKG Comparison: No Significant Change - from EKG on 08/21/2013 Re-Evaluation - Re-Evaluation First Eval Re-Evaluation Time: 18:47 Change: Unchanged Comment: Has a flap lac that is 2 cm at the DIP of his right thumb, FROM, no exposed tendon, no FB and will be able to be glued. C-collar was removed and he continues to complain of left-sided head pain. Will give him more Dilaudid (1 mg ). Second Eval Re-Evaluation Time: 20:15 Change: Improved Comment: Pain is controlled for the moment. Advised about his nasal fracture. Third Eval Re-Evaluation Time: 21:24 Change: Unchanged Comment: Discussed the right elbow fracture with the pt. He is doing well and accompanied by his . Fourth Eval Re-Evaluation Time: 21:30 Change: Improved Comment: Laceration repairs with glue to thumb, nose and left frontal hematoma. Head Injury Course/Dx Course Of Treatment: CT C-spine is negative, reported by CT staff at 1845. C- collar will be removed. Assessment/Plan: Pt is a 63 y/o M BIBA who presents to ED c/o head, nose, L shoulder, and L elbow pain s/p fall from a ladder 6-8 feet high while at work. Bloodwork and UA were done, with a troponin of 0.00 and serum alcohol of 0. Pt is noted with elevated CK and decreased renal function and is hydrated for this. EKG is sinus rhythm with prolonged QTc (559), left axis -31, and no acute changes. CT maxillofacial reveals bilateral minimally impacted longitudinally oriented nasal bone fractures, LEFT preseptal and nasolabial fold soft tissue swelling contiguous with the scalp hematoma, and a small focus of subcutaneous emphysema at the peripheral LEFT supraorbital margin with results above. Elbow XR shows a nondisplaced radial head fracture with full results above. Shoulder XR, CT C-spine, CT Chest/abd/pel and CT brain reveal no acute findings with full results above. In the ED course, pt received fluids, augmentin, percocet and dilaudid which improved pain. Lacerations repaired with skin adhesive - see procedure notes above. Discussed care of pt with Dr. Nowak, discussing CTs and Dr. Perry, who agrees to see the pt in his office either on or Tuesday (03/17/18) and agrees with the Augmentin. Discussed care of pt with Dr. Yoo who advised the proper treatment is a sling and that he should work on ROM, avoiding any pushing, pulling, or lifting. She will see him in the office tomorrow of 03/16/18. Pt will be D/C to home with Dx of nasal bone fractures and traumatic orbital hematoma, right elbow fracture with Rx for Percocet and Augmentin. Augmentin is prophylactic to treat poss infection associated with hematoma or nasal fractures. - Diagnoses Provider Diagnoses: Nasal bone fractures, Traumatic orbital hematoma, Radial head fracture, Elevated CK - Physician Notifications Discussed Care Of Patient With: Jude Nowak Time Discussed With Above Provider: 20:11 Instructed by Provider To: Other - Discussed CTs. Discussed care of pt with Dr. Perry at 2107 who agrees to see the pt in his office either or Tuesday and agrees with the Augmentin. Discussed care of pt with Dr. Yoo at 2115 who advised a sling as appropriate treament and wants to see the the pt tomorrow or 03/16/18 and advises him to work on ROM but to not lift, push, or pull. - Critical Care Time Critical Care Time: 30-74 min - 30 Discharge - Sign-Out/Discharge Documenting (check all that apply): Discharge/Admit/Transfer - Discharge - Discharge Plan Condition: Stable Disposition: HOME Prescriptions: Amoxicillin/Clavulanate TAB* [Augmentin TAB 875*] 875 mg PO BID #20 tab oxyCODONE/Acetamin 5/325 MG* [Percocet 5/325 TAB*] 1 tab PO Q4H PRN #18 tab MDD 6 PRN Reason: Pain Patient Education Materials: Nasal Fracture (ED), Elbow Fracture (ED), Skin Adhesive Care (ED), Facial Contusion (ED) Referrals: Brian Perry MD [Medical Doctor] - 3 Days (You should be seen in the office March 16 or March 07 ) Jude Marrero MD [Primary Care Provider] - Franky Yoo MD [Medical Doctor] - (Follow up with Dr. Yoo either tomorrow or . ) Additional Instructions: We have used skin adhesive on your right thumb and your left forehead. We have talked with Dr. Perry about your nasal fractures, and he would like you to be seen this or Tuesday, March 16, or . You have a probable radial head fracture. We have talked with Dr. Yoo about your elbow fracture who would like to see you in her office either tomorrow or and advises working on your range of motion with the elbow but avoiding any pushing, pulling, or lifting. Wear the sling until you are seen by Dr. Yoo. Tale the Augmentin and percocet as directed. You were given your first dose of each of these medications in the ER. Your next dose of percocet can be after 0100am. Your next dose of Augmentin is tomorrow am. Return to the ER if you have new or worsening symptoms. - Billing Disposition and Condition Condition: STABLE Disposition: HOME The documentation as recorded by the Betty chavez Rebecca accurately reflects the service I personally performed and the decisions made by , Estela Caraballo MD.
== END 2018-03-13 22:10 | disposition home or self-care (01) ==
LOC: ED 15:45
DX: S02.2XXA Fracture of nasal bones, initial encounter for closed fracture (principal); S52.124A Nondisplaced fracture of head of right radius, initial encounter for closed fracture; S05.10XA Contusion of eyeball and orbital tissues, unspecified eye, initial encounter; S01.21XA Laceration without foreign body of nose, initial encounter; S01.81XA Laceration without foreign body of other part of head, initial encounter; S61.011A Laceration without foreign body of right thumb without damage to nail, initial encounter; W11.XXXA Fall on and from ladder, initial encounter; Y92.9 Unspecified place or not applicable; F17.290 Nicotine dependence, other tobacco product, uncomplicated
CPT/HCPCS: 36415; 70450; 70486; 71260; 72125; 74177; 80053; 80320; 81003; 82150; 82550; 83605; 83690; 84484; 85025; 85610; 93005; 96361; 96374; 96376; 99285; A9270-GY; G0480; J1170; Q9967

== ENCOUNTER → 2018-07-10 10:57 | Day surgery (SDC) | payer MEDICARE ==
[~2018-07-10 10:57] MED LIST changes: -Buffered Lidocaine 0.9% SYRIN* 5 ML/SYR SYRINGE INTRADERM ONE; +Bupivacaine 0.25% EPI 200,000* 30 ML SDV ONE; -Dexamethasone IV* 4 MG/ML 1 ML (4 MG) IV SLOW PU ONE; +Dexamethasone TAB* 4 MG ONE; +DiMENhydriNATE IV* 50 MG/ML VIAL IV PUSH PRN; +Famotidine IV* 10 MG/ML 2 ML (20 mg) ONE; +KETAMINE HCL* 50 MG/ML 10 ML VIAL ONE; +Labetalol IV* 5 MG/ML 20 ML VIAL ONE; +Lidocaine 1% INJ* 10 MG/ML 30 ML SDV ONE; +Lidocaine 2% JELLY* 6 ML JELLY TOPICAL ONE; +Midazolam* 1 MG/ML 5 ML VIAL (5 MG) ONE; +Morphine INJ* 2 MG/ML 1 ML SYRINGE (TWO MG - NEW SYRINGE VERSION) IV PRN; +Naloxone* 0.4 MG/ML 1 ML VIAL IV PRN; +Onabotulinimtoxina 100 UNITS* VIAL ONE; +Ondansetron ODT TAB* 4 MG ONE; +PROCHLORPERAZINE INJ 5 MG/ML 2 ML VIAL IV PRN; +Propofol* 10 MG/ML 20 ML BTL IV PUSH ONE; +fentaNYL* 50 MCG/ML 2 ML VIAL (100 MCG VIAL) IV PRN; +fentaNYL* 50 MCG/ML 2 ML VIAL (100 MCG VIAL) ONE; +oxyCODONE/Acetamin 5/325 MG* TAB PO PRN
[2018-07-10 12:17] VITALS: BP 109/73
--- NOTE | 2018-07-10 12:31 | BRIEFOPN ---
Brief Operative Note - Surgery Procedures: Procedures OPERATIVE REPORT PRE-OP: Posterior anal fissure POST-OP: Same, PROCEDURE:Anorectal exam under anesthesia, injection of Botox A 100 U into internal anal sphincter SURGEON: MD Tara ANESTHESIA:Local with MAC [place] ASST:none IVF:min EBL:min SPECIMEN:none DRAIN: none WOUND CLASS:4 COMPLICATIONS: none TO PACU
--- NOTE | 2018-07-11 16:06 | OP ---
DATE OF OPERATION: 07/10/18 [facility] DATE OF : 51 SURGEON: Steven Pacheco MD NOVELTY WORKER: None. ANESTHESIOLOGIST: Isaias Wallace MD ANESTHESIA: Local with monitored anesthesia care. PRE-OP DIAGNOSIS: Chronic posterior anal fissure. POST-OP DIAGNOSIS: Chronic posterior anal fissure. OPERATIVE PROCEDURE: Anorectal exam under anesthesia with injection of Botox A into the internal anal sphincter. INDICATIONS: Mr. Ra Cary is a 63-year-old gentleman who has had a posterior anal fissure for the past 5 to 6 months. He has been treated supportively with nonoperative management and was improving, but more recently he has had more symptoms. Discussion with the patient concerning the injection of Botox A was had and he is now being taken to the operating room for an exam under anesthesia with plans for Botox A injection into the internal sphincter. ESTIMATED BLOOD LOSS: Minimal. SPECIMENS: None. COMPLICATIONS: None. DRAINS: None. DESCRIPTION OF PROCEDURE: Written informed consent was obtained and the patient was taken to the operating room. He was placed in the prone jackknife position. Sequential compression devices and warming blanket were applied. Sedation was administered. The perineum, buttocks, and the perianal were prepped and draped in the usual sterile fashion. Time-out verification was completed. A limited perianal block was then performed using 0.25% Marcaine with epinephrine mainly in the posterior half of the anal verge on either side. Digital rectal exam was performed, which showed some decrease in tone, but no evidence of mass or blood. Placing an anal retractor revealed a posterior fairly superficial midline anal fissure with no other abnormality. There were some small internal hemorrhoids and the distal rectal mucosa appeared to be unremarkable. I then identified the landmarks of both the external and internal sphincter in the intersphincteric roof. I then proceeded to inject approximately 50 units of Botox A into the internal sphincter at the 2 o'clock and the 10 o'clock position and he tolerated this well. The patient tolerated the procedure well, he was taken to the recovery room in stable condition. [id number]/CPS #: [id number] MTDD
== END | disposition home or self-care (01) ==
LOC: OR 10:57
PROVIDERS: ATTEND Surgery
DX: K60.1 Chronic anal fissure (principal); Z72.0 Tobacco use; K21.9 Gastro-esophageal reflux disease without esophagitis; F41.9 Anxiety disorder, unspecified; M19.90 Unspecified osteoarthritis, unspecified site
CPT/HCPCS: A9270-GY; J0585; J2250; J2704; J3010; J8540

== ENCOUNTER 2018-07-14 10:07 | Day surgery (SDC) | payer MEDICARE ==
--- NOTE | 2018-07-13 17:53 | HP ---
PREOPERATIVE HISTORY AND PHYSICAL: DATE OF ADMISSION/SURGERY: 07/14/18 DATE OF OFFICE VISIT/ENCOUNTER: 07/05/18 ATTENDING SURGEON: Laura Sol MD* (DICTATED BY CHEYENNE SALAZAR) PROCEDURE: Left hand tenosynovectomy. CHIEF COMPLAINT: Left hand tenosynovitis. HISTORY OF PRESENT ILLNESS: This is a 63-year-old male. 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 He reports that the next morning he noticed some swelling along the radial dorsal aspect of the hand and wrist. He has received a cortisone injection for this problem; however, the swelling and the pain persist. The patient has been trying to avoid repetitive activities; however, his symptoms are not going away. He has consented with surgical intervention at this time in the form of a left hand tenosynovectomy. PAST MEDICAL HISTORY: 1. GERD. 2. Eczema. 3. Arthritis. 4. 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 5. History of diverticulitis. 6. Anxiety/depression. PAST SURGICAL HISTORY: 1. Rotator cuff repair, left shoulder. 2. Sigmoid colectomy in 2012. 3. Left knee arthroscopy. 4. Right trigger finger release. CURRENT MEDICATIONS: 1. dextroamphetamine ER 20 mg daily. 2. Clonazepam 1 mg half tab in the a.m., 1 tab in the p.m. 3. Duloxetine HCl 30 mg 3 tabs by mouth every day. 4. Hydrocortisone 0.5% apply topically twice a day p.r.n. 5. Multivitamin daily. 6. Nasonex 50 mcg ACT use as directed. 7. Nitroglycerin 0.2% and lidocaine gel 2% apply b.i.d. as needed. 8. Olopatadine HCl 0.1% one drop to both eyes twice a day as needed. 9. Prilosec 20 mg daily. 10. Proctosol-HC 2.5% apply thin film to affected area 2 to 4 times daily. 11. Psyllium seed husk 1 daily. 12. Terazosin HCl 10 mg daily. ALLERGIES: No known drug allergies. Positive for seasonal allergies. FAMILY MEDICAL HISTORY: Heart disease and cancer. SOCIAL HISTORY: The patient is a volunteer with the [employer]. He is a former smoker; he quit in 1974. Prior to that, he has been smoking 1-1/2 packs per day for approximately 8 years. He does currently smoke cigars with some regularity. He denies recreational drug use. He drinks alcohol on regular occasion, 1 to 2 drinks per day. REVIEW OF SYSTEMS: Negative for general, cephalic, cardiovascular, respiratory , GI, , other musculoskeletal, integumentary, endocrine, neurologic, and hematologic symptoms. Infectious Disease: Negative for MRSA, hepatitis C, and HIV. No known anesthesia problems. PHYSICAL EXAMINATION GENERAL: Well-developed, well-nourished, 63-year-old male, in no acute distress. VITAL SIGNS: Height 5 feet 9 inches, weight 160 pounds. Pulse rate 72, blood pressure 110/72. HEENT: Normocephalic, atraumatic. Pupils are equal, round, and reactive to light and accommodation. Extraocular movements are intact. Throat is clear. NECK: Supple. No palpable lymph nodes. PULMONARY: Lungs are clear to auscultation bilaterally. No wheezes, rales, or rhonchi. CARDIOVASCULAR: Regular rate and rhythm. S1, S2. No murmurs, rubs, or gallops. No edema. ABDOMEN: Positive bowel sounds. Soft, nontender. NEUROLOGICAL: Alert and oriented x3. Cranial nerves II through XII are intact. Sensation is intact to light touch. MUSCULOSKELETAL: On exam of the left upper extremity and left hand, there is swelling, moderate amount, on the radial dorsal aspect of the hand. It seems to move with motion of the thumb. It is tender to palpation. There is no erythema. Skin is intact. Neurovascular function is intact. DIAGNOSTIC STUDIES: X-rays of the left wrist are normal. IMPRESSION: Left hand tenosynovitis. PLAN: The patient is scheduled to undergo a left hand tenosynovectomy with Dr. Sol on 07/14/18. He will return to the office 10 days postop for followup and suture removal. A prescription for [place] was e-scribed to the patient's pharmacy for postoperative pain management. CHEYENNE SALAZAR [id number]/[facility] #: [id number] [facility]ENTERNehal
[~2018-07-14 10:07] MED LIST changes: +Buffered Lidocaine 0.9% SYRIN* 5 ML/SYR SYRINGE INTRADERM ONE; -Bupivacaine 0.25% EPI 200,000* 30 ML SDV ONE; +Dexamethasone IV* 4 MG/ML 1 ML (4 MG) IV SLOW PU ONE; -Dexamethasone TAB* 4 MG ONE; -DiMENhydriNATE IV* 50 MG/ML VIAL IV PUSH PRN; +Famotidine IV* 10 MG/ML 2 ML (20 mg) IV ONE; -Famotidine IV* 10 MG/ML 2 ML (20 mg) ONE; -KETAMINE HCL* 50 MG/ML 10 ML VIAL ONE; -Labetalol IV* 5 MG/ML 20 ML VIAL ONE; -Lidocaine 1% INJ* 10 MG/ML 30 ML SDV ONE; -Lidocaine 2% JELLY* 6 ML JELLY TOPICAL ONE; -Midazolam* 1 MG/ML 5 ML VIAL (5 MG) ONE; -Morphine INJ* 2 MG/ML 1 ML SYRINGE (TWO MG - NEW SYRINGE VERSION) IV PRN; -Naloxone* 0.4 MG/ML 1 ML VIAL IV PRN; -Onabotulinimtoxina 100 UNITS* VIAL ONE; -Ondansetron ODT TAB* 4 MG ONE; -PROCHLORPERAZINE INJ 5 MG/ML 2 ML VIAL IV PRN; -Propofol* 10 MG/ML 20 ML BTL IV PUSH ONE; -fentaNYL* 50 MCG/ML 2 ML VIAL (100 MCG VIAL) IV PRN; -fentaNYL* 50 MCG/ML 2 ML VIAL (100 MCG VIAL) ONE; -oxyCODONE/Acetamin 5/325 MG* TAB PO PRN
[2018-07-14] MEDS ORDERED: Famotidine IV* 10 MG/ML 2 ML (20 mg) ONE (10:35)
[2018-07-14] MEDS ORDERED: Dexamethasone IV* 4 MG/ML 1 ML (4 MG) ONE (10:35)
[2018-07-14] MEDS ORDERED: fentaNYL* 50 MCG/ML 2 ML VIAL (100 MCG VIAL) ONE (11:11)
[2018-07-14] MEDS ORDERED: Midazolam* 1 MG/ML 2 ML VIAL (2 MG) ONE (11:11)
[2018-07-14] MEDS ORDERED: Lidocaine 1% INJ* 10 MG/ML 30 ML SDV ONE (11:35)
[2018-07-14] MEDS ORDERED: ROPIVACAINE 5 MG/ML 30 ML BTL (0.5%) ONE (11:41)
[2018-07-14] MEDS ORDERED: Ketorolac INJ* 30 MG/ML 1 ML VIAL ONE ×2 (12:16→12:17)
[2018-07-14] MEDS ORDERED: EPHEDrine (Pressors)* 50 MG/ML VIAL ONE (12:17)
[2018-07-14] MEDS ORDERED: Propofol* 10 MG/ML 20 ML BTL IV PUSH ONE (12:17)
[2018-07-14] MEDS ORDERED: Ondansetron INJ* 2 MG/ML VIAL ONE (12:17)
[2018-07-14] MEDS ORDERED: HYDROcodone/ACETAMIN 5-325 MG* 1 TAB ONE (13:28)
[2018-07-14 13:52] VITALS: BP 121/74
--- NOTE | 2018-07-15 05:59 | OP ---
DATE OF OPERATION: 07/14/[address] [facility] DATE OF : 51 SURGEON: Laura Sol MD EVENT REPRESENTATIVE: CHEYENNE Kim ANESTHESIA: General. PRE-OP DIAGNOSIS: Left extensor tenosynovitis. POST-OP DIAGNOSIS: Left extensor tenosynovitis. OPERATIVE PROCEDURE: Tenosynovectomy, left hand of the second third and fourth extensor compartments. ESTIMATED BLOOD LOSS: Zero. TOURNIQUET TIME: About 45 minutes. INDICATIONS FOR PROCEDURE: Ra is a 63-year-old man who has a large swelling on the dorsal radial aspect of his left hand. This has failed to improve with conservative treatment of cortisone injection. He presents for extensor tenosynovectomy of the left hand. OPERATIVE FINDINGS: The patient had extensive tenosynovitis from the distal aspect of the forearm all the way to the MP joint of the thumb of the third extensor compartment and also some involving the second and fourth extensor compartments as well. There was no tendon rupture or abrasion and no gross evidence of a rheumatoid type tenosynovitis. DESCRIPTION OF PROCEDURE: The patient was brought to the operating room, was given a general anesthetic and placed in supine position on operating table with a tourniquet around his left upper arm. The skin of his left upper extremity was prepped and draped in usual sterile fashion. The upper extremity was exsanguinated and the tourniquet elevated to 250 mmHg. A curved incision was made along the course of the EPL tendon, we dissected bluntly and sharply through the subcutaneous tissue. Branches of the radial sensory nerve were located and preserved with retraction by the registered dental assistant rda, Larisa Mary , whose assistance was essential for safe completion of the case. There was abundant tenosynovitis surrounding the EPL tendon. The tendon was released all the way back to the musculotendinous junction and the tenosynovitis was debrided. There was also some tenosynovitis on the fourth compartment and this was debrided as well and additionally in the second extensor compartment which was also thoroughly debrided. The tendons were in good condition. The wound was copiously irrigated with saline. A [place] drain was placed and then the extensor retinaculum was reapproximated leaving the EPL tendon transposed, 4-0 nylon suture was used to close the extensor retinaculum. The skin edges were then reapproximated with 4-0 nylon suture and the wound was dressed with Xeroform, 4x4, Webril and ABD with an [place] wrap. The patient tolerated the procedure well, was brought to the recovery room in good condition. [id number]/[facility] #: [id number] MTDD
== END 2018-07-14 13:49 | disposition home or self-care (01) ==
LOC: OREAST 10:07
PROVIDERS: ATTEND Orthopaedic Surgery
DX: M65.842 Other synovitis and tenosynovitis, left hand (principal); Z72.0 Tobacco use; F41.8 Other specified anxiety disorders; K21.9 Gastro-esophageal reflux disease without esophagitis; J30.89 Other allergic rhinitis
CPT/HCPCS: 88304; J1100; J1885; J2250; J2405; J2704; J2795; J3010

== ENCOUNTER 2018-07-16 11:13 | Emergency (ER) | payer MEDICARE ==
--- OUTSIDE RECORDS SUMMARY | 2018-07-16 11:19 | XMS REPORT ---
:1955 External Reference #:[id number] Author Organization [facility] Address [address] [place] [address] [address] [place] [address] Phone [phone] Care Team Providers Name Role Phone Jude Marrero III, MD Primary Care Physician Unavailable Payers Type Date Identification Numbers Payment Provider Subscriber Medicare Primary Policy Number: [id number] Medicare Sherron Winkler JR PayID: [id number] [address] [facility] [address] Mediholladay Part B Effective: 2018 Policy Number: Medicare Sherron Winkler JR [id number] Expires: 2018 PayID: [id number] [address] [facility] [address] Medigap Part B Policy Number: [id number] [facility] Sherron Winkler JR PayID: [id number] [address] [place] [address] Commercial Effective: 2018 PayID: [id number] Medicare D - Drug Plan Sherron Winkler JR Problems Date Description Provider Status Onset: 01/19/2012 Gastroesophageal reflux disease Jude Marrero M.D. Active Onset: 01/19/2012 Disorder of shoulder Jude Marrero M.D. Active Onset: 06/12/2012 Anxiety state Jude Marrero M.D. 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 6 hours as needed pain Nitroglycerin 03/21 Active Apply bid K60.0 Steven S. 0.2% to anal Yates, Lidocaine Gel 2 % canal as MD bernabe barcenas Proctosol HC 03/17 Active Cream 2.5% 28.35 apply K64.8 0gm thin film [place] Morrell to affected area 2-4 times daily Olopatadine HCL 01/13 Active Solution 0.1% 5ml 1 drop to J30.9 Jude Chandan /2015 both eyes Elida, twice a M.D. day as needed Prilosec Active Capsules DR 20mg 30cap 1 po qd Unknown /0000 s Multivitamins Active Tablets 30tab 1 po qd Unknown /0000 s Hydrocortisone Active Cream 0.5% apply topically twice a day as needed Nasonex Active Suspension 50mcg/Act OTC Unknown Terazosin HCL Active Capsules 10mg take 1 Unknown capsule by mouth every evening Clonazepam Active Tablets 1mg 1/2 a tab Unknown /0000 in Am; 1 tab in pm (TDD 1.5 mg) Duloxetine HCL Active Caps DR 30mg 3 tabs by Unknown /0000 Part mouth every day Psyllium Seed 00 Active 1 daily Unknown Husk Amphetamine-Dextr Active Caps ER 20mg one Unknown oamphet ER /0000 24HR capsule once daily in the morning Oxycodone-Acetami 03/17 Hx Tablets 5-325mg 30tab 1-2 tabs K64.8 Rohit s by mouth [place] Morrell - every 8 / hours needed for pain Oxycodone-Acetami 09/09 Hx Tablets 5-325mg 40tab 1 tabs by Mark Monory s mouth Tino, - every 6 01/29 hours needed for pain Aspirin 09/09 Hx Tablets 325mg 28tab take 1 Mark s twice a Tino, - day x 14 MD Tramadol HCL 08/23 Hx Tablets 50mg 28tab 1-2 S83.242D s tablets [place] Morrell - every 12 01/29 hours needed for pain. Methylprednisolon 08/19 Hx TBPK 4mg 21uni take per Mark ts dosepak Tino, - instructi 08/26 ons. Celebrex 12/07 Hx Capsules 100mg 60cap 1 tab by S83.242A Mark s mouth Tino, - twice a 01/29 day needed Penicillin V 11/26 Hx Tablets 500mg 20tab 1 tablet J02.9 s by mouth [place]LAND[place] Morrell - twice a 12/06 day for 10 days Lidocaine Viscous 11/26 Hx Solution 2% 100un gargle J02.9 its with 15ml [place] Morrell - every 4 12/03 hours needed for throat pain. Acyclovir 09/11 Hx Ointment 5% 30gm apply 5 Jude E. /2014 times/day Elida, - tin White 01/13 affected area. Hydrocodone-Aceta 08/05 Hx Tablets 5-325mg 180ta 1-2 tabs V41.1 Isaias saul bs by mouth [place]LAND[place] Chavez - q4 hours 12/31 as needed pain limit 6 tabs per day Alprazolam 09/28 Hx Tablets 0.5mg 30tab 1/2-1 by F41.9 Jude Rohit s mouth lana Marrero, - to three M.D. 01/29 times day as needed Prozac 01/12 Hx Capsules 40mg 90cap 1 po qd Jude Rohit shikha Marrero - M.D. 08/23 Prozac 12/15 Hx Capsules 20mg 90cap 1 po qd Jude Rohit shikha Marrero - M.D. 01/12 Bactroban 10/12 Hx Ointment 2% 15gra apply to ms areas tid Elida, - for 5-7 M.D. 11/14 days needed Buspirone HCL 06/12 Hx Tablets 15mg 60tab 1 po bid 300.00 Jude ERohit shikha Marrero - M.D. 11/14 Zolpidem Tartrate 06/12 Hx Tablets 10mg 30tab 1 tab by F41.9 Jude Rohit s elias Marrero, - every M.D. 01/29 night at bedtime as needed Carisoprodol Hx Tablets 350mg 45tab one po Unknown /0000 s tid prn - spasm 05/26 Alprazolam Hx Tablets 0.5mg 60tab 1 po bid Unknown /0000 s prn - 09/11 [facility] [place] Wort Hx Capsules 150mg 120ca 2 po qd Unknown /0000 ps - 07/10 Saw Monrovia Hx Capsules 80mg 1 po Unknown /0000 daily - 09/[address] 81mg 90tab 1 po Unknown /0000 s occasiona - lly 01/25 Ciprofloxacin HCL 00/00 Hx Tablets 500mg pt not Tenkatvida, /0000 taking Erin Alfred MD 08/23 Ibuprofen 0000 Hx Tablets 800mg Tenkate, /0000 Erin Alfred MD 09/28 Metronidazole 0000 Hx Tablets 500mg pt not Louie, /0000 taking Erin Alfred MD 01/25 Oxycodone/Acetami 00 Hx Tablets 5-325mg pt not Tenkate, mindyhen /0000 taking Erin Alfred MD 01/25 Finacea Hx Gel 15% Unknown / - 07/16 Epipen 2-Oswaldo Hx Solution 0.3mg/0.3 1unit use as Unknown /0000 Auto-Inject ML s directed - 03/17 Amitriptyline HCL Hx Tablets 25mg 1 po at Unknown / hs prn - 01/13 Fluticasone Hx Suspension 50mcg/Act 3unit 1 spray Jude E. Propionate s Ezra Yadav M.D. 01/13 daily needed Bupropion HCL ER Hx Tablets ER 150mg 3 tabs in Unknown (XL) 24HR the - morning 03/15 with food Medications Administered in Office Medication Date Status Form Strength Qnty SIG Indications Ordering Provider Depomedrol 40MG 06/08/ Administered Injection Laura 2017 Cindy Sol Hyaluron Or 05/04/ Administered Injection Giovanna Ev Sanchez 2017 russ Wilde,For PA-C Intra-Articular Inj Per Dose Hyaluron Or 04/27/ Administered Injection Ev Dahl 2017 MD Tino ovsilverio,For Intra-Articular Inj Per Dose Depomedrol 40MG 04/20/ Administered Injection Mark Jiménez MD Hyaluron Or 04/20/ Administered Injection Ev Dahl MD ovsilverio,For Intra-Articular Inj Per Dose Triamcinolone 02/07/ Administered Injection Raúl (Kenalog) 2017 MD Waqas Depomedrol 40MG 10/20/ Administered Injection Mark Monroy 2016 MD Tino Depomedrol 40MG 12/07/ Administered Injection Mark Monroy 2016 MD Tino Depomedrol 80MG 01/16/ Administered Injection Laura 2014 Cindy Sol Immunizations CPT Code Status Date Vaccine Reaction Lot # [id number] Given 02/24/2018 Tdap - No immediate reaction [id number] Tetanus/Diptheria/Acellular noted. Pertussis 12334 Given 01/30/2018 Pneumococcal Conjugate [id number] Vaccine 13 Valent For Intramuscular Use 39725 Given 08/08/2017 Influenza Virus Vaccine, [id number] Quadrivalent, Split, Preservative Free 73405 Given 08/30/2016 Influenza Virus Vaccine, [id number] Quadrivalent, Split Virus, Im Use 25437 Given 08/12/2015 Influenza Virus Vaccine, [id number] Quadrivalent, Split, Preservative Free 50273 Given 07/17/2014 Influenza Virus Vaccine, Quadrivalent, Split, Preservative Free 05738 Given 07/17/2014 Influenza Virus Vaccine, [id number] Quadrivalent, Split, Preservative Free 22409 Given 07/01/2014 Zoster (Zostavax) [id number] 46696 Given 08/23/2013 Flu Vaccine Split Virus [id number] Preservative Free For Indiv 3Yr Older Q2038 Given 07/19/2012 Fluzone Vaccine [id number] 36526 Given 10/24/2007 Tetanus And Diptheria (Td) For Adult Use Preservative Free Vital Signs Date Vital Result Comment 07/05/2018 Height 69 inches 5'9" Weight 160.00 lb Heart Rate 72 /min BP Systolic 110 mmHg BP Diastolic 72 mmHg Respiratory Rate 12 /min Pain Level 6 BMI (Body Mass Index) 23.6 kg/m2 06/20/2018 Heart Rate 84 /min Respiratory Rate 18 /min Body Temperature 97.6 F 06/19/2018 Height 69 inches 5'9" Weight 160.00 lb Heart Rate 72 /min BP Systolic 118 mmHg BP Diastolic 76 mmHg Respiratory Rate 12 /min Pain Level 0 BMI (Body Mass Index) 23.6 kg/m2 06/13/2018 Height 69 inches 5'9" Weight 158.00 lb Heart Rate 78 /min BP Systolic 124 mmHg BP Diastolic 72 mmHg Respiratory Rate 12 /min BMI (Body Mass Index) 23.3 kg/m2 06/08/2018 Height 69 inches 5'9" Weight 164.00 lb Heart Rate 78 /min BP Systolic 138 mmHg BP Diastolic 78 mmHg Respiratory Rate 18 /min Body Temperature 97.8 F Pain Level 7 BMI (Body Mass Index) 24.2 kg/m2 05/04/2018 Height 69 inches 5'9" Weight 179.00 lb BP Systolic 128 mmHg BP Diastolic 74 mmHg Respiratory Rate 20 /min Pain Level 0 BMI (Body Mass Index) 26.4 kg/m2 04/27/2018 Height 68 inches 5'8" Weight 160.00 lb Heart Rate 80 /min BP Systolic 120 mmHg BP Diastolic 70 mmHg Respiratory Rate 12 /min Pain Level 3 BMI (Body Mass Index) 24.3 kg/m2 04/20/2018 Height 68 inches 5'8" Weight 165.00 lb Heart Rate 78 /min BP Systolic 112 mmHg BP Diastolic 77 mmHg Body Temperature 96.7 F BMI (Body Mass Index) 25.1 kg/m2 04/18/2018 Heart Rate 82 /min Respiratory Rate 18 /min 03/21/2018 Heart Rate 84 /min Respiratory Rate 16 /min Body Temperature 97.2 F 03/17/2018 Height 69 inches 5'9" with shoes Weight 175.50 lb Heart Rate 96 /min BP Systolic 120 mmHg BP Diastolic 76 mmHg Body Temperature 97.8 F O2 % BldC Oximetry 97 % BMI (Body Mass Index) 25.9 kg/m2 03/16/2018 Height 69 inches with shoes Weight 179.00 lb Heart Rate 76 /min BP Systolic 110 mmHg BP Diastolic 78 mmHg Body Temperature 97.7 F Pain Level 6 BMI (Body Mass Index) 26.4 kg/m2 03/07/2018 Height 67.7 inches 5'7.70" Weight 170.00 [...] Negative finding Laboratory test 08/04/2016 Surgical Interface SEE RESULT BELOW 4, 5 finding Order Laboratory test 01/07/2016 Glucose 98 mg/dL 70-100 finding Hemoglobin A1c (Glyco HGB) 5.2 % Less than 6.0 6 Lipid Profile (Trig/Chol/HDL) 01/07/2016 Triglycerides 212 mg/dL 7 Cholesterol 168 mg/dL 8 HDL Cholesterol 30.1 mg/dL 9 LDL Cholesterol 96 mg/dL 10 Laboratory test 06/26/2014 Hepatitis C Nonreactive [...] 16 LDL Cholesterol 83 mg/dL 11, 17 CBC Auto Diff 08/21/2013 White Blood Count [...] 0-2 Nucleated Red Blood Cells % 0.2 Basic Metabolic Panel 08/21/2013 Sodium 139 mmol/L 133-145 Potassium 3.9 mmol/L 3.5-5.0 Chloride 104 mmol/L 101-111 Co2 Carbon Dioxide 30.0 mmol/L 22-32 Anion Gap 5.0 mmol/L 2-11 Glucose 100 mg/dL 70-100 Blood Urea Nitrogen 12 mg/dL 6-24 Creatinine 0.90 mg/dL 0.50-1.40 BUN/Creatinine Ratio 13.3 8-20 Calcium 9.3 mg/dL 8.1-9.9 Egfr Non- 86.1 >60 Egfr 110.7 >60 18 Urinalysis 07/10/2013 Urine Color Yellow Urine Appearance Clear Urine Specific Ducor 1.014 1.010-1.030 Urine Esterase Negative Negative Urine [...] For Retic Coun 37 % Low 42-52 Laboratory test finding 05/26/2012 PSA,Diagnostic 0.49 NG/ML 0-4 26 CBC With Manual Diff 05/26/2012 White Blood Count 7.0 CUMM 4.8-10.8 Red Cell Count 4.37 CUMM Low 4.6-6.2 [...] Eosinophil 1 % 0-6 RBC Morphology NORMAL Urine Culture & Sensitivi 05/26/2012 M <SEE NOTE> 27 1 Because ethnic data is not always [...] 5 Kidney failure <15 (or dialysis) 2 [id number] SEE RESULT BELOW Name: SHERRON WINKLER JR : [address]: Rohit Morrell NP Acct: [id number] Unit: [id number] AGE: 61 Location: [facility] Re11/26/16 SEX: M Status: REG REF SPEC: [id number] RACHELLE: 11/26/16-[address]: Rohit Morrell NP REQ: [id number] RECD: 11/26/16 STATUS: COMP _ SOURCE: THROAT SPDESC: ORDERED: Throat Culture COMMENTS: [id number] Procedure Result Reported Site Throat Culture Final 11/28/16- 1200 ML Organism 1 NORMAL NATHALIE Quantity 3+ Throat cultures are clinically indicated to detect the presence of group A strep, arcanobacterium and yeast. In certain cases, predominating organisms will be reported. * ML - MAIN LAB ([facility]) . END OF REPORT * ML=Testing performed at Main Lab DEPARTMENT OF PATHOLOGY, [address] [place] [address] Gregg Oquendo M.D. Director [facility] # [id number] 4 [id number] 5 SEE RESULT BELOW Name: SHERRON WINKLER JR : [address]: Yannick Madsen MD Acct: [id number] Unit: [id number] AGE: 61 Location: [facility] Re08/04/16 SEX: M Status: REG REF SPEC: [id number] RACHELLE: 08/04/16- DR: Yannick Madsen MD REQ: [id number] RECD: 08/04/16-1227 STATUS: LORENA WILKES DR: Jude Marrero III, MD _ ORDERED: LEVEL IV COMMENTS: [id number] FINAL DIAGNOSIS Esophagus, distal at 42 cm, biopsy: -- Squamous and columnar mucosa with chronic inflammation. -- Negative for intestinal metaplasia and dysplasia. CLINICAL HISTORY Pain in back; Prilosec given in [place]. Mother - bladder cancer and smoker POST-OPERATIVE [...] performed at Main Lab DEPARTMENT OF PATHOLOGY, [address] [place] [address] Gregg Oquendo M.D. Director [facility] # [id number] 6 Therapeutic target for the treatment of diabetes Mellitus patients is <7% HBA1C, and in selective patients <6.0%.Please refer to [place] [employer] Diabetic care guidelines for further information. 7 Desirable <150 Borderline high 150-199 High 200-499 Very High >500 8 Desirable <200 Borderline high 200-239 High >239 9 Low <40 Desirable: 40-60 High: >60 10 Desirable: <100 mg/dL Near Optimal: 100-129 mg/dL Borderline High: 130-159 mg/dL High: 160-189 mg/dL Very High: >189 mg/dL 11 FASTING 12 FASTING 13 Because ethnic [...] 0.06 ng/mL Not supportive of diagnosis of AK 0.06 - 0.50 ng/ml Indeterminate: suggest serial studies if clinically indicated. Greater than 0.5 ng/mL Consistent with diagnosis of AK 22 Because ethnic data is not always [...] <15 (or dialysis) 23 RUN DATE: 11/11/12 [facility] LAB LIVE PAGE 1 RUN TIME: [address] [place] [address] Specimen Inquiry Name: SHERRON WINKLER JR : [address]: Erin Hodgson Acct: [id number] Unit: [id number] AGE: 57 Location: ED Re11/11/12 SEX: M Status: REG ER SPEC: [id number] RACHELLE: 11/11/12-[address] [facility] [address]: Erin Paredes MD REQ: [id number] RECD: 11/11/12364 STATUS: ROLF WILKES DR: Elida LAIRD MDJude _ SOURCE: STOOL SPDESC: ORDERED: Hemoccult Procedure Result Verified Site Stool Occult Blood Final 11/11/12- 174 ML Stool Occult Blood Negative END OF REPORT * ML=Testing performed at Main Lab DEPARTMENT OF PATHOLOGY, [facility] [place], [place] [address] Gregg Oquendo M.D. Director [facility] Permit #[id number] 24 RUN DATE: 11/13/12 [facility] LAB LIVE PAGE 1 RUN TIME: 928 [facility] [place], [place] [address] Specimen Inquiry Name: SHERRON WINKLER JR : [address]: Erin Hodgson Acct: [id number] Unit: [id number] AGE: 57 Location: ED Re11/11/12 SEX: M Status: DEP ER SPEC: [id number] RACHELLE: 11/11/12-[address] [facility] [address]: Erin Paredes MD REQ: [id number] RECD: 11/11/12 STATUS: ROLF WILKES DR: Jude Marrero III, MD _ SOURCE: URINE SPDESC: ORDERED: Urine Culture Procedure Result Verified Site Urine Culture Final 11/13/12- 28 ML No Growth Day 2 (<1,000 CFU/mL) END OF REPORT * ML=Testing performed at Main Lab DEPARTMENT OF PATHOLOGY, [address] [place] [address] Gregg Oquendo M.D. Director [facility] Permit #[id number] 25 Please note: New reference range, effective 10/14/11 NORMAL REFERENCE RANGE: GREATER THAN 4.1 NG/ML 26 * SERUM LEVELS OF PSA MEASURED USING THE SAMSON Enjoi ACCESS HYBRITECH IMMUNOASSAY SHOULD NOT BE INTERPRETED [...] methods of kits cannot be used interchangeably. 27 RUN DATE: 05/28/12 [facility] NMI LIVE PAGE 1 RUN TIME: 1519 Specimen Inquiry RUN USER: INTERFACE Name: SHERRON WINKLER JR Status: REG REF Re05/26/12 Age/Sex: 57/M Unit#: [id number] Location: [facility] : [birth year] SPEC #: [id number] RACHELLE: 05/26/12 STATUS: ROLF REQ #: [id number] RECD: 05/26/[address] [facility] [address]: Fantasma PERRY,Ana Lal SOURCE: URINE ENTR: 05/26/[address]: URINE C S QUERIES: MEDENT REQUISITION # [id number] SPECIMEN DESCRIPTION: URINE, RANDOM ACT WKST: UR 05/28/12 #1 Procedure Result Verified Site > URINE CULTURE SENSITIVI Final 05/28/12- 1519 ML FINAL: NO GROWTH DAY 2 (<1,000 CFU/mL) ML - [facility] State Permit #[id number] [address] [place] [address] DEPARTMENT OF PATHOLOGY, [address] [place] [address] [facility] Permit #[id number] Gregg Oquendo M.D. Director Candis Montes M.D. Operations Chief Procedures Date CPT Code Description Status 06/08/2018 Inject/Drain Joint/Bursa Intermediate W/O US Completed 05/04/2018 Inj/Aspir Major JT Or Bursa W/ US Completed 04/27/2018 Inject/Drain Joint/Bursa Major W/O US Completed 04/20/2018 Inject/Drain Joint/Bursa Major W/O US Completed 04/20/2018 Inject/Drain Joint/Bursa Major W/O US Completed 02/07/2018 74523 Injection Intralesional Up To And Including 7 Lesions Completed 02/07/2018 66051 Removal Skin Tags Up To 15 Completed 10/20/2017 Inject/Drain Joint/Bursa Major W/O US Completed 09/09/2017 98325 Arthroscopy,Knee,Meniscectomy Medial Or Lateral Completed 09/09/2017 19080 Arthroscopy,Knee,Meniscectomy Medial Or Lateral Completed 08/23/2017 09401 EKG Tracing & Interpretation Completed 06/07/2017 87450 Repair Immediate Wound 2.6-7.5CM Completed Scalp/Axillae/Trunk/Extremities 06/07/2017 07299 Excise Benign Lesion 2.1-3CM Trunk/Arm/Leg Completed 06/07/2017 86676 Excise Benign Lesion 2.1-3CM Trunk/Arm/Leg Completed 12/07/2016 25625 Inject/Drain Joint/Bursa Major W/O US Completed 02/11/2015 76152 Trigger Finger Release Incision / Tendon Sheath Completed Incision 01/16/2015 16497 Inject Tendon Sheath Or Ligament Aponeurosis Eg Plantar Completed Fascia 08/21/2013 96051 EKG, Interpretation Only Completed 07/28/2012 Colonoscopy Completed 12/03/2005 Colonoscopy Completed Encounters Type Date Location Provider CPT E/M Dx Office Visit 06/20/2018 [facility] Steven Pacheco 43112 K60.1 9:00a Of Kitty SAUNDERS Office Visit 06/19/2018 [facility] Larisa Mary 53966 M65.842 9:30a Of Kevin KRISHNAMURTHY Office Visit 06/13/2018 [facility] Mark Jiménez 45031 M25.511 10:30a Of Kevin SAUNDERS M25.562 M17.12 M25.532 Office Visit 06/08/2018 11:00a [facility] Laura Sol 93183 M65.842 Of Kevin White M70.21 Office Visit 04/27/2018 10:00a [facility] Mark Jiménez 30709 M25.562 Of Kevin SAUNDERS M17.12 M75.51 Office Visit 04/20/2018 8:30a [facility] Of Mark Jiménez 52739 M75.51 Kevin SAUNDERS M25.562 M17.12 Office Visit 04/18/2018 10:30a [facility] Steven Pacheco 70673 K60.0 Of Kitty SAUNDERS Office Visit 03/21/2018 10:30a [facility] Steven Pacheco 80144 K60.0 Of Kitty SAUNDERS Office Visit 03/17/2018 1:40p [facility] [place] [address] K64.8 [facility] Office Visit 03/16/2018 10:15a [place] [address] M25.511 Of Kevin M25.521 M25.522 S49.91xA S59.901A S59.902A W11.xxxA Office Visit 03/07/2018 10:45a [facility] Of Mark Monroy 26425 M25.562 Kevin Jiménez MD Office Visit 02/07/2018 10:10a [facility] Dermatology Raú[place] [address] L73.8 L82.1 L91.8 L53.8 Z78.9 R20.8 L91.0 Office Visit 08/23/2017 10:20a [facility] [place] [address] Z01.818 [place]w S83.242D K21.9 Office Visit 08/16/2017 8:45a [facility] Mark Monroy 01429 S83.242D Of Kevin Jiménez MD M25.511 M54.12 M17.12 Office Visit 08/08/2017 2:40p [facility] Internal Medicine Jude Marrero, 10381 F41.9 - Nia White Z23 Office Visit 06/20/2017 10:00a [facility] Of Mark Monroy Tino, 73094 M16.12 Kevin SAUNDERS S83.242D M25.552 M17.12 Office Visit 05/23/2017 1:30p [facility] Dermatology Raú[place] [address] L72.0 L73.8 Office Visit 05/16/2017 11:40a [facility] Internal Medicine Jude Marrero, 58226 J31.0 - Nia White Office Visit 01/28/2017 11:00a [facility] Internal Medicine Jude Marrero, 97875 Z00.00 - Nia White K21.9 F41.9 E78.2 Office Visit 12/07/2016 10:00a [facility] Mark Monroy Tino, 52309 M23.232 Of Kevin SAUNDERS M17.12 Office Visit 11/26/2016 2:20p [facility] [place] [address] J02.9 - Honeydew Office Visit 01/14/2016 10:40a [facility] Internal Medicine Jude Marrero, 47921 Z00.00 - Stalin White E78.2 R73.01 K21.9 F41.9 J30.9 Office Visit 09/11/2015 2:00p [facility] Internal Medicine Jude Marrero, 83108 M79.675 - Stalin White Office Visit 01/16/2015 10:00a [facility] Laura Sol, 81947 727.03 Of Kevin White Office Visit 12/31/2014 9:00a [facility] Internal Medicine Jude Marrero, 67712 V70.0 - Stalin White 300.00 530.81 272.2 790.21 Office Visit 08/05/2014 4:00p [facility] [place] [address] 918.2 - [place] Office Visit 07/01/2014 10:00a [facility] Internal Medicine Jude Marrero, 31818 788.41 - Stalin White V77.91 V04.89 V05.8 Office Visit 2014 11:00a [facility] Internal Medicine Jude Marrero, 62401 388.30 - Stalin White V77.91 V77.1 V73.89 Office Visit 09/28/2013 10:40a [facility] Internal Medicine Jude Marrero, 36566 300.00 - Stalin White 530.81 Office Visit 08/23/2013 10:00a [facility] Internal Medicine Jude Marrero, 54222 562.11 - Stalin White 300.00 530.81 726.19 V04.81 Office Visit 04/12/2013 9:40a [facility] Internal Medicine Jude Marrero, 52731 300.00 - Stalin White Office Visit 01/12/2013 11:00a [facility] Internal Medicine Jude Marrero, 33770 300.00 - Stalin White Office Visit 11/14/2012 9:40a [facility] Internal Medicine Jude Marrero, 77636 562.11 - Stalin White Office Visit 10/12/2012 4:00p [facility] Internal Medicine Jude Marrero, 42818 684 - Stalin White Office Visit 09/11/2012 10:20a [facility] Medicine Jude Marrero, 44749 300.00 - Stalin White Office Visit 07/10/2012 10:40a [facility] Medicine Jude Marrero, 10909 300.00 - Stalin White Office Visit 06/12/2012 10:20a [facility] Medicine Jude Marrero, 83524 300.00 - Stalin White Office Visit 05/26/2012 10:30a [facility] Internal Medicine Ana Meek, 96353 789.04 - Stalin N.P. Office Visit 01/19/2012 11:00a [facility] Internal Medicine Jude Marrero, 74818 V70.0 - Stalin White 530.81 726.19 Plan of Care Future Appointment(s):07/24/2018 10:15 am - Laura Sol M.D. at [facility]07/18/2018 11:00 am - Steven Pacheco MD at [facility]07/10/2018 12:45 pm - Steven Pacheco MD at [facility]09/05/2018 10:30 am - Mark Jiménez MD at [facility]07/05/2018 - Laura Sol M.D.M65.842 Other synovitis and tenosynovitis, left handFollow up:Follow up: 9-10 days postop
--- OUTSIDE RECORDS SUMMARY | 2018-07-16 11:19 | XMS REPORT ---
:1955 External Reference #:[id number] Author Organization [employer] Address [address] [place] [address] [place] [address] Phone [phone] Care Team Providers Name Role Phone Jude Marrero III, MD Primary Care Physician Unavailable Payers Type Date Identification Numbers Payment Provider Subscriber Medicare Primary Policy Number: [id number] Medicare Sherron Winkler JR PayID: [id number] [address] [place] [address] [place] Part B Effective: 2018 Policy Number: Medicare Sherron Winkler JR [id number] Expires: 2018 PayID: [id number] [address] [place] [address] Medigap Part B Policy Number: [id number] [facility] Sherron Winkler JR PayID: [id number] [address] [place] [address] Commercial Effective: 2018 PayID: [id number] Medicare D - Drug Plan Sherron Winkler [...] Description Comments Marital Status 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 0.2% to anal Bonner Lidocaine Gel 2 % teresa pires MD instructed . Proctosol HC 03/17 Active Cream 2.5% 28.35 apply thin K64.8 Rohit 0gm film to [place] Morrell affected area 2-4 times daily Olopatadine HCL 01/13 Active Solution 0.1% 5ml 1 drop to J30.9 Jude E. /2015 both eyes Elida, twice a M.D. day as needed Prilosec Active Capsules DR 20mg 30cap 1 po qd Unknown / s Multivitamins Active Tablets 30tab 1 po qd s Hydrocortisone Active Cream 0.5% apply topically twice a day as needed Nasonex Active Suspension 50mcg/Act OTC Terazosin HCL Active Capsules 10mg take 1 capsule by mouth every evening Clonazepam Active Tablets 1mg 1/2 a tab Unknown in Am; 1 tab in pm (TDD 1.5 mg) Duloxetine HCL Active Caps DR 30mg 3 tabs by Part mouth every day Psyllium Seed Active 1 daily Unknown Husk Amphetamine-Dextr Active Caps ER 20mg one Unknown oamphet ER / 24HR capsule once daily in the morning Oxycodone-Acetami 03/17 Hx Tablets 5-325mg 30tab 1-2 tabs K64.8 Rohit s by mouth [employer], STAFF ELECTRICAL ENGINEER - every 8 / hours needed for pain Oxycodone-Acetami 09/09 Hx Tablets 5-325mg 40tab 1 tabs by Mark guillen s mouth F - every 6 Tino, 01/29 hours as needed for pain Aspirin 09/09 Hx Tablets 325mg 28tab take 1 s twice a F - day x 14 Tino, 01/29 days Tramadol HCL 08/23 Hx Tablets 50mg 28tab 1-2 S83.242D s tablets Porsche, STAFF ELECTRICAL ENGINEER - every 12 01/29 hours needed for pain. Methylprednisolon 08/19 Hx TBPK 4mg 21uni take per ts dosepak F - instructio Tino, 08/26 ns. Celebrex 12/07 Hx Capsules 100mg 60cap 1 tab by S83.242A s mouth F - twice a Tino, 01/29 day as needed Penicillin V 11/26 Hx Tablets 500mg 20tab 1 tablet J02.9 Rohit s by mouth [employer] STAFF ELECTRICAL ENGINEER - twice a 12/06 day for days Lidocaine Viscous 11/26 Hx Solution 2% 100un gargle J02.9 its with 15ml Porsche STAFF ELECTRICAL ENGINEER - every 4 12/03 hours needed for throat pain. Acyclovir 09/11 Hx Ointment 5% 30gm apply 5 Jude E. times/day Elida, - to M.D. 01/13 area. Hydrocodone-Aceta 08/05 Hx Tablets 5-325mg 180ta 1-2 tabs V41.1 Isaias saul bs by mouth Scott STAFF ELECTRICAL ENGINEER - q4 hours 12/31 as needed pain limit 6 tabs per day Alprazolam 09/28 Hx Tablets 0.5mg 30tab 1/2-1 by F41.9 Jude Hawley s mouth up Elida, - to three M.D. 01/29 times day as needed Prozac 01/12 Hx Capsules 40mg 90cap 1 po qd Jude Rohit Ezra Johnson M.D. 08/23 Prozac 12/15 Hx Capsules 20mg 90cap 1 po qd Jude ERohit Ezra Johnson M.D. 01/12 Bactroban 10/12 Hx Ointment 2% 15gra apply to ms areas tid Eliad, - for 5-7 M.D. 11/14 days needed Buspirone HCL 06/12 Hx Tablets 15mg 60tab 1 po bid 300.00 Rohit Ezra Johnson M.D. 11/14 Zolpidem Tartrate 06/12 Hx Tablets 10mg 30tab 1 tab by F41.9 shikha Marrero, - every M.D. 01/29 night at bedtime as needed Carisoprodol Hx Tablets 350mg 45tab one po tid Unknown /0000 s prn spasm - 05/26 Alprazolam Hx Tablets 0.5mg 60tab 1 po bid Unknown /0000 s prn - 09/11 [facility] [place] Wort Hx Capsules 150mg 120ca 2 po qd Unknown /0000 ps - 07/10 Saw Cameron Hx Capsules 80mg 1 po daily Unknown / - 09/[address] 81mg 90tab 1 po Unknown /0000 s occasional - ly 01/25 Ciprofloxacin HCL Hx Tablets 500mg pt not Tenkate, /0000 taking Erin Alfred MD 08/23 Ibuprofen Hx Tablets 800mg Tenkate, /0000 Erin Alfred MD 09/28 Metronidazole Hx Tablets 500mg pt not Louie, /0000 taking Erin Alfred MD 01/25 Oxycodone/Acetami Hx Tablets 5-325mg pt not Loiue nophen /0000 taking Erin Alfred MD 01/25 Finacea Hx Gel 15% Unknown /0000 - 07/16 Epipen 2-Oswaldo Hx Solution 0.3mg/0.3 1unit use as Unknown /0000 Auto-Inject ML s directed - 03/17 Amitriptyline HCL Hx Tablets 25mg 1 po at hs Unknown / prn - 01/13 Fluticasone Hx Suspension 50mcg/Act 3unit 1 spray Jude E. Propionate s Ezra Yadav M.D. 01/13 daily needed Bupropion HCL ER Hx Tablets ER 150mg 3 tabs in Unknown (XL) /0000 24HR the - morning 03/15 with food Medications Administered in Office Medication Date Status Form Strength Qnty SIG Indications Ordering Provider Depomedrol 40MG 06/08/ Administered Injection Laura 2017 Cindy Sol Hyaluron Or 05/04/ Administered Injection Ev Cordon 2017 russ Wilde,For PA-C Intra-Articular Inj Per Dose Hyaluron Or 04/27/ Administered Injection Ev Dalh 2017 MD Tino ovsilverio,For Intra-Articular Inj Per Dose Depomedrol 40MG 04/20/ Administered Injection Mark Monroy 2017 MD Tino Hyaluron Or 04/20/ Administered Injection Ev Dahl 2018 MD Tino ovsilverio,For Intra-Articular Inj Per Dose Triamcinolone 02/07/ Administered Injection Raúl (Kenalog) 2017 MD Waqas Depomedrol 40MG 10/20/ Administered Injection Mark Monroy 2016 MD Tino Depomedrol 40MG 12/07/ Administered Injection Mark Monroy 2016 MD Tino Depomedrol 80MG 01/16/ Administered Injection Laura 2014 Cindy Sol Immunizations CPT Code Status Date Vaccine Reaction Lot # [id number] Given 02/24/2018 Tdap - No immediate reaction [id number] Tetanus/Diptheria/Acellular noted. Pertussis 34225 Given 01/30/2018 Pneumococcal Conjugate [id number] Vaccine 13 Valent For Intramuscular Use 38376 Given 08/08/2017 Influenza Virus Vaccine, [id number] Quadrivalent, Split, Preservative Free 42542 Given 08/30/2016 Influenza Virus Vaccine, [id number] Quadrivalent, Split Virus, Im Use 31518 Given 08/12/2015 Influenza Virus Vaccine, [id number] Quadrivalent, Split, Preservative Free 14159 Given 07/17/2014 Influenza Virus Vaccine, Quadrivalent, Split, Preservative Free 24571 Given 07/17/2014 Influenza Virus Vaccine, [id number] Quadrivalent, Split, Preservative Free 79855 Given 07/01/2014 Zoster (Zostavax) [id number] 09951 Given 08/23/2013 Flu Vaccine Split Virus [id number] Preservative Free For Indiv 3Yr Older Q2038 Given 07/19/2012 Fluzone Vaccine [id number] 03773 Given 10/24/2007 Tetanus And Diptheria (Td) For Adult Use Preservative Free Vital Signs Date Vital Result Comment 06/20/2018 Heart Rate 84 /min Respiratory Rate [...] Color Yellow Urine Appearance Clear Urine Specific Buckner 1.014 1.010-1.030 Urine Esterase Negative Negative Urine [...] 5 Kidney failure <15 (or dialysis) 2 [id number] 3 SEE RESULT BELOW Name: SHERRON WINKLER JR : [address]: Rohit Morrell NP Acct: [id number] Unit: [id number] AGE: 61 Location: [facility] Re11/26/16 SEX: M Status: REG REF SPEC: [id number] RACHELLE: 11/26/16-0333 [facility] DR: Rohit Morrell NP REQ: [id number] RECD: 11/26/16 STATUS: COMP _ SOURCE: THROAT SPDESC: ORDERED: Throat Culture COMMENTS: [id number] Procedure Result Reported Site Throat Culture Final 11/28/16- 1200 ML Organism 1 NORMAL NATHALIE Quantity 3+ Throat cultures are clinically indicated to detect the presence of group A strep, arcanobacterium and yeast. In certain cases, predominating organisms will be reported. * ML - MAIN LAB ([facility]) . END OF REPORT * ML=Testing performed at Main Lab DEPARTMENT OF PATHOLOGY, [address] [place] [address] Gregg Oquendo M.D. Director [facility] # [id number] 4 [id number] 5 SEE RESULT BELOW Name: SHERRON WINKLER JR : [address]: Yannick Madsen MD Acct: [id number] Unit: [id number] AGE: 61 Location: [facility] Re08/04/16 SEX: M Status: REG REF SPEC: [id number] RACHELLE: 08/04/16- SUBM DR: Yannick Madsen MD REQ: [id number] RECD: 08/04/168 STATUS: LORENA WILKES DR: Jude Marrero III, MD _ ORDERED: LEVEL IV COMMENTS: [id number] FINAL DIAGNOSIS Esophagus, distal at 42 cm, biopsy: -- Squamous and columnar mucosa with chronic inflammation. -- Negative for intestinal metaplasia and dysplasia. CLINICAL HISTORY Pain in back; Prilosec given in [place]. Mother - bladder cancer and smoker POST-OPERATIVE [...] performed at Main Lab DEPARTMENT OF PATHOLOGY, [address] [place] [address] Gregg Oquendo M.D. Director [facility] # [id number] Therapeutic target for the treatment of diabetes Mellitus patients is <7% HBA1C, and in selective patients <6.0%.Please refer to [place] [employer] Diabetic care guidelines for further [...] 0.06 ng/mL Not supportive of diagnosis of AR 0.06 - 0.50 ng/ml Indeterminate: suggest serial studies if clinically indicated. Greater than 0.5 ng/mL Consistent with diagnosis of AR 22 Because ethnic data is not always [...] <15 (or dialysis) 23 RUN DATE: 11/11/12 [facility] LAB LIVE PAGE 1 RUN TIME: 2916 [address] [facility], [place], [place] [address] Specimen Inquiry Name: PETERSONSHERRON JR : [address]: Erin Hodgson Acct: [id number] Unit: [id number] AGE: 57 Location: ED Re11/11/12 SEX: M Status: REG ER SPEC: [id number] RACHELLE: 11/11/12-[address]: Erin Paredes MD REQ: [id number] RECD: 11/11/12 STATUS: ROLF WILKES DR: Elida LAIRD MDJude _ SOURCE: STOOL [facility]: ORDERED: Hemoccult Procedure Result Verified Site Stool Occult Blood Final 11/11/12- 1746 ML Stool Occult Blood Negative END OF REPORT * ML=Testing performed at Main Lab DEPARTMENT OF PATHOLOGY, [facility] [employer] [place], [place] [address] Gregg Oquendo M.D. Director [facility] Permit #[id number] RUN DATE: 11/13/12 [facility] LAB LIVE PAGE 1 RUN TIME: 928 [facility] [employer] [place], [place] [address] Specimen Inquiry Name: SHERRON WINKLER JR : [address]: Erin Hodgson Acct: [id number] Unit: [id number] AGE: 57 Location: ED Re11/11/12 SEX: M Status: DEP ER SPEC: [id number] RACHELLE: 11/11/12-0 [facility] DR: Erin Paredes MD REQ: [id number] RECD: 11/11/12 STATUS: ROLF WILKES DR: Jude Marrero III, MD _ SOURCE: URINE SPDESC: ORDERED: Urine Culture Procedure Result Verified Site Urine Culture Final 11/13/12- 927 ML No Growth Day 2 (<1,000 CFU/mL) END OF REPORT * ML=Testing performed at Main Lab DEPARTMENT OF PATHOLOGY, [address] [place] [address] Gregg Oquendo M.D. Director [place] State Permit #[id number] Please note: New reference range, effective [...] be used interchangeably. 27 RUN DATE: 05/28/12 [facility] NMI LIVE PAGE 1 RUN TIME: 1519 Specimen Inquiry RUN USER: INTERFACE Name: PETERSONSHERRON JR Status: REG REF Re05/26/12 Age/Sex: 57/M Unit#: [id number] Location: [facility] : [birth year] SPEC #: [id number] RACHELLE: 05/26/12 STATUS: ROLF FRANK #: [id number] RECD: 05/26/[address]: Fantasma PERRY,Ana Lal SOURCE: URINE ENTR: 05/26/12-[address]: [place]: ORDERED: URINE C S QUERIES: MEDENT REQUISITION # [id number] SPECIMEN DESCRIPTION: URINE, RANDOM ACT WKST: UR 05/28/12 #1 Procedure Result Verified Site > URINE CULTURE SENSITIVI Final 05/28/12- 1519 ML FINAL: NO GROWTH DAY 2 (<1,000 CFU/mL) ML - [facility] State Permit #[id number] [address] [place] [address] DEPARTMENT OF PATHOLOGY, [address] [place] [address] [facility] Permit #[id number] Gregg Oquendo M.D. Director [employer] Procedures Date CPT Code Description Status 06/08/201865095 Inject Tendon Sheath Or Ligament Aponeurosis Eg Plantar Completed Fascia 05/04/2018 71506 Inj/Aspir Major JT Or Bursa W/ US Completed 04/27/201803365 Inject/Drain Joint/Bursa Major W/O US Completed 04/20/201863446 Inject/Drain Joint/Bursa Major W/O US Completed 04/20/201864769 Inject/Drain Joint/Bursa Major W/O US Completed 02/07/2018 03116 Injection Intralesional Up To And Including 7 Lesions Completed 02/07/2018 80169 Removal Skin Tags Up To 15 Completed 10/20/201755428 Inject/Drain Joint/Bursa Major W/O US Completed 09/09/2017 59672 Arthroscopy,Knee,Meniscectomy Medial Or Lateral Completed 09/09/2017 51776 Arthroscopy,Knee,Meniscectomy Medial Or Lateral Completed 08/23/2017 61537 EKG Tracing & Interpretation Completed 06/07/2017 92174 Repair Immediate Wound 2.6-7.5CM Completed Scalp/Axillae/Trunk/Extremities 06/07/2017 66805 Excise Benign Lesion 2.1-3CM Trunk/Arm/Leg Completed 06/07/2017 77494 Excise Benign Lesion 2.1-3CM Trunk/Arm/Leg Completed 12/07/2016 97479 Inject/Drain Joint/Bursa Major W/O US Completed 02/11/2015 38024 Trigger Finger Release Incision / Tendon Sheath Completed Incision 01/16/201537375 Inject Tendon Sheath Or Ligament Aponeurosis Eg Plantar Completed Fascia 08/21/2013 69780 EKG, Interpretation Only Completed 07/28/2012 Colonoscopy Completed 12/03/2005 Colonoscopy Completed Encounters Type Date Location Provider CPT E/M Dx Office Visit 06/20/2018 [facility] Steven Pacheco, 18263 K60.1 9:00a Of [facility] Office Visit 04/27/2018 [facility] Mark Monroy Tino, 18665 M25.562 10:00a Of Kevin SAUNDERS M17.12 M75.51 Office Visit 04/18/2018 10:30a [facility] Steven Pacheco 23253 K60.0 Of [facility] Office Visit 03/21/2018 10:30a Surgical Shira Pacheco 42478 K60.0 Of [facility] Office Visit 03/17/2018 1:40p [facility] [place] [address] K64.8 [facility] [place] Office Visit 03/16/2018 10:15a [place] [address] M25.511 Of Kevin M25.521 M25.522 S49.91xA S59.901A S59.902A W11.xxxA Office Visit 03/07/2018 10:45a [facility] Of Mark Monroy 56891 M25.562 Kevin Jiménez MD Office Visit 02/07/2018 10:10a [facility] Dermatology Raú[place] [address] L73.8 L82.1 L91.8 L53.8 Z78.9 R20.8 L91.0 Office Visit 08/23/2017 10:20a [facility] [place] [address] Z01.818 [place] S83.242D K21.9 Office Visit 08/16/2017 8:45a [facility] Mark Monroy 25188 S83.242D Of Kevin Jiménez MD M25.511 M54.12 M17.12 Office Visit 08/08/2017 2:40p [facility] Internal Medicine Jude Marrero, 69036 F41.9 Nia White Z23 Office Visit 06/20/2017 10:00a [facility] Of Mark Jiménez 55226 M16.12 Kevin SAUNDERS S83.242D M25.552 M17.12 Office Visit 05/23/2017 1:30p [facility] [place]ermat[place] Raú[place] [address] L72.0 L73.8 Office Visit 05/16/2017 11:40a [facility] Internal Medicine Jude Marrero, 25772 J31.0 - Nia White Office Visit 01/28/2017 11:00a [facility] Internal Medicine Jude Marrero, 08629 Z00.00 - Nia White K21.9 F41.9 E78.2 Office Visit 12/07/2016 10:00a [facility] Mark Monroy Tino, 97321 M23.232 Of Kevin SAUNDERS M17.12 Office Visit 11/26/2016 2:20p [facility] [place] [address] J02.9 - [place] Office Visit 01/14/2016 10:40a [facility] Internal Medicine Jude Marrero, 08378 Z00.00 - Stalin White E78.2 R73.01 K21.9 F41.9 J30.9 Office Visit 09/11/2015 2:00p [facility] Internal Medicine Jude Marrero, 94080 M79.675 - Stalin White Office Visit 01/16/2015 10:00a [facility] Laura Sol, 00481 727.03 Of Kevin White Office Visit 12/31/2014 9:00a [facility] Internal Medicine Jude Marrero, 83026 V70.0 - Stalin White 300.00 530.81 272.2 790.21 Office Visit 08/05/2014 4:00p [facility] [place] [address] 918.2 - Stalin Office Visit 07/01/2014 10:00a [facility] Internal Medicine Jude Marrero, 00431 788.41 - Stalin White V77.91 V04.89 V05.8 Office Visit 2014 11:00a [facility] Internal Medicine Jude Marrero, 07879 388.30 - Stalin White V77.91 V77.1 V73.89 Office Visit 09/28/2013 10:40a [facility] Internal Medicine Jude JasRohit Marrero, 68278 300.00 - [place] M.D. 530.81 Office Visit 08/23/2013 10:00a [facility] Internal Medicine Jude JasRohit Marrero, 69460 562.11 - [place] M.D. 300.00 530.81 726.19 V04.81 Office Visit 04/12/2013 9:40a [facility] Internal Medicine Jude Marrero, 99022 300.00 - [place] M.D. Office Visit 01/12/2013 11:00a [facility] Internal Medicine Jude Marrero, 26701 300.00 - [place] M.D. Office Visit 11/14/2012 9:40a [facility] Internal Medicine Jude Marrero, 82412 562.11 - [place] M.D. Office Visit 10/12/2012 4:00p [facility] Internal Medicine Jude Marrero, 79094 684 - [place] M.D. Office Visit 09/11/2012 10:20a [facility] Internal Medicine Jude Marrero, 20959 300.00 - [place] M.D. Office Visit 07/10/2012 10:40a [facility] Internal Medicine Jude Marrero, 14152 300.00 - [place] M.D. Office Visit 06/12/2012 10:20a [facility] Internal Medicine Jude Marrero, 60965 300.00 - [place] M.D. Office Visit 05/26/2012 10:30a [facility] Internal Medicine Ana Meek, 12705 789.04 - [place] N.P. Office Visit 01/19/2012 11:00a [facility] Internal Medicine Jude Marrero, 23793 V70.0 - [place] M.D. 530.81 726.19 Plan of Care Future Appointment(s):07/11/2018 10:15 am - Steven Pacheco MD at [facility]07/03/2018 12:00 pm - Steven Pacheco MD at [facility]07/05/2018 9:30 am - Laura Sol M.D. at [facility].09/05/2018 10:30 am - Mark Jiménez MD at [facility].06/20/2018 - Steven Pacheco MDK60.1 Chronic anal fissureFollow up:Please follow the instructions for the scheduling of your surgery. Please call if you have any questions or concerns.
--- OUTSIDE RECORDS SUMMARY | 2018-07-16 11:20 | XMS REPORT ---
:1955 External Reference #:[id number] Author Organization [employer] Address [address] [place] [address] [place] [address] Phone [phone] Care Team Providers Name Role Phone Jude Marrero III, MD Primary Care Physician Unavailable Payers Type Date Identification Numbers Payment Provider Subscriber Medicare Primary Policy Number: [id number] Medicare Sherron Winkler JR PayID: [id number] [address] [facility] [address] [employer] Part B Effective: 2018 Policy Number: Medicare Sherron Winkler JR [id number] Expires: 2018 PayID: [id number] [address] [facility] [place] [address] Medigap Part B Policy Number: [id number] [facility] Sherron Winkler JR PayID: [id number] [address] [phone] Commercial Effective: 2018 PayID: [id number] Medicare D - Drug Plan Sherron Winkler [...] Description Comments Marital Status 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 0.2% to anal [place] Lidocaine Gel 2 % teresa pires MD [...] tabs K64.8 Rohit s by mouth [employer], [employer] - every 8 / hours needed for pain Oxycodone-Acetami 09/09 Hx Tablets 5-325mg 40tab 1 tabs by Mark guillen s mouth F - every 6 Tino, 01/29 hours as needed for pain Aspirin 09/09 Hx Tablets 325mg 28tab take 1 s twice a F - day x 14 Tino, 01/29 days Tramadol HCL 08/23 Hx Tablets 50mg 28tab 1-2 S83.242D s tablets Porsche, [employer] - every 12 01/29 hours needed for pain. Methylprednisolon 08/19 Hx TBPK 4mg 21uni take per ts dosepak F - instructio Tino, 08/26 ns. Celebrex 12/07 Hx Capsules 100mg 60cap 1 tab by S83.242A s mouth F - twice a Tino, 01/29 day as needed Penicillin V 11/26 Hx Tablets 500mg 20tab 1 tablet J02.9 Rohit s by mouth [employer] - twice a 12/06 day for days Lidocaine Viscous 11/26 Hx Solution 2% 100un gargle J02.9 its with 15ml P[employer] - every 4 12/03 hours needed for throat pain. Acyclovir 09/11 Hx Ointment 5% 30gm apply 5 Jude E. times/day Elida, - to M.D. 01/13 area. Hydrocodone-Aceta 08/05 Hx Tablets 5-325mg 180ta 1-2 tabs V41.1 Isaias saul bs by mouth Scott [employer] - q4 hours 12/31 as needed pain [...] qd Unknown /0000 ps - 07/10 Saw Marana Hx Capsules 80mg 1 po daily Unknown [...] 01/25 Oxycodone/Acetami Hx Tablets 5-325mg pt not Louie nophen /0000 taking Erin Alfred MD 01/25 [...] Administered Injection Ev Dahl 2018 MD Tino ovsivlerio,For Intra-Articular Inj Per Dose Triamcinolone 02/07/ Administered Injection Raúl (Kenalog) 2017 MD Waqas Depomedrol 40MG 10/20/ Administered Injection Mark Monroy 2016 MD Tino Depomedrol 40MG 12/07/ Administered Injection Mark Monroy 2016 MD Tino Depomedrol 80MG 01/16/ Administered Injection Laura 2014 Cindy Sol Immunizations CPT Code Status Date Vaccine Reaction Lot # [id number] Given 02/24/2018 Tdap - No immediate reaction [id number] Tetanus/Diptheria/Acellular noted. Pertussis 30842 Given 01/30/2018 Pneumococcal Conjugate [id number] Vaccine 13 Valent For Intramuscular Use 11781 Given 08/08/2017 Influenza Virus Vaccine, [id number] Quadrivalent, Split, Preservative Free 33028 Given 08/30/2016 Influenza Virus Vaccine, [id number] Quadrivalent, Split Virus, Im Use 17032 Given 08/12/2015 Influenza Virus Vaccine, [id number] Quadrivalent, Split, Preservative Free 34591 Given 07/17/2014 Influenza Virus Vaccine, Quadrivalent, Split, Preservative Free 50996 Given 07/17/2014 Influenza Virus Vaccine, [id number] Quadrivalent, Split, Preservative Free 37725 Given 07/01/2014 Zoster (Zostavax) [id number] 39504 Given 08/23/2013 Flu Vaccine Split Virus [id number] Preservative Free For Indiv 3Yr Older Q2038 Given 07/19/2012 Fluzone Vaccine [id number] 78691 Given 10/24/2007 Tetanus And Diptheria (Td) For Adult Use Preservative Free Vital Signs Date Vital Result Comment 06/19/2018 Height 69 inches 5'9" Weight 160.00 [...] Color Yellow Urine Appearance Clear Urine Specific [place] 1.014 1.010-1.030 Urine Esterase Negative Negative Urine [...] 5 Kidney failure <15 (or dialysis) 2 [id number] 3 SEE RESULT BELOW Name: SHERRON WINKLER JR : [address]: Rohit Morrell NP Acct: [id number] Unit: [id number] AGE: 61 Location: [facility] Re11/26/16 SEX: M Status: REG REF SPEC: [id number] RACHELLE: 11/26/16-[address]: Rohit Morrell NP REQ: [id number] RECD: 11/26/16 STATUS: COMP _ SOURCE: THROAT SPDESC: ORDERED: Throat Culture COMMENTS: [id number] Procedure Result Reported Site Throat Culture Final 11/28/16- 1200 ML Organism 1 NORMAL NATHALIE Quantity 3+ Throat cultures are clinically indicated to detect the presence of group A strep, arcanobacterium and yeast. In certain cases, predominating organisms will be reported. * ML - MAIN LAB ([facility]) . END OF REPORT * ML=Testing performed at Main Lab DEPARTMENT OF PATHOLOGY, [address] [place] [address] Gregg Oquendo M.D. Director [facility] # [id number] 4 [id number] 5 SEE RESULT BELOW Name: SHERRON WINKLER JR : [address]: Yannick Madsen MD Acct: [id number] Unit: [id number] AGE: 61 Location: [facility] Re08/04/16 SEX: M Status: REG REF SPEC: [id number] RACHELLE: 08/04/16- SUBM DR: Yannick Madsen MD REQ: [id number] RECD: 08/04/168 STATUS: LORENA WILKES DR: Jude Marrero III, MD _ ORDERED: LEVEL IV COMMENTS: [id number] FINAL DIAGNOSIS Esophagus, distal at 42 cm, biopsy: -- Squamous and columnar mucosa with chronic inflammation. -- Negative for intestinal metaplasia and dysplasia. CLINICAL HISTORY Pain in back; Prilosec given in [place]. Mother - bladder cancer and smoker POST-OPERATIVE [...] at Main Lab DEPARTMENT OF PATHOLOGY, [address] [place] [address] Gregg Oquendo M.D. Director [facility] # [id number] 6 Therapeutic target for the treatment of diabetes Mellitus patients is <7% HBA1C, and in selective patients <6.0%.Please refer to [place] [employer] Diabetic care guidelines for further [...] 0.06 ng/mL Not supportive of diagnosis of VA 0.06 - 0.50 ng/ml Indeterminate: suggest serial studies if clinically indicated. Greater than 0.5 ng/mL Consistent with diagnosis of VA 22 Because ethnic data is not always [...] <15 (or dialysis) 23 RUN DATE: 11/11/12 [facility] LAB LIVE PAGE 1 RUN TIME: [address] [place], [place] [address] Specimen Inquiry Name: PETERSONSHERRON Coronado JR : [address]: Erin Hodgson Acct: [id number] Unit: [id number] AGE: 57 Location: ED Re11/11/12 SEX: M Status: REG ER SPEC: [id number] RACHELLE: 11/11/[address]: Erin Paredes MD REQ: [id number] RECD: 11/11/12 STATUS: ROLF WILKES DR[facility] _ SOURCE: STOOL SPDESC: ORDERED: Hemoccult Procedure Result Verified Site Stool Occult Blood Final 11/11/12- 1746 ML Stool Occult Blood Negative END OF REPORT * ML=Testing performed at Main Lab DEPARTMENT OF PATHOLOGY, [facility] [employer] [place], [place] [address] Gregg Oquendo M.D. Director [facility] Permit #[id number] 24 RUN DATE: 11/13/12 [facility] LAB LIVE PAGE 1 RUN TIME: [address] [facility] [employer] [place], [place] [address] Specimen Inquiry Name: SHERRON WINKLER JR : [address]: Erin Hodgson Acct: [id number] Unit: [id number] AGE: 57 Location: ED Re11/11/12 SEX: M Status: DEP ER SPEC: [id number] RACHELLE: 11/11/121540 [facility] DR: Erin Paredes MD REQ: [id number] RECD: 11/11/12 STATUS: ROLF WILKES DR: Jude Marrero III, MD _ SOURCE: URINE SPDESC: ORDERED: Urine Culture Procedure Result Verified Site Urine Culture Final 11/13/12- 927 ML No Growth Day 2 (<1,000 CFU/mL) END OF REPORT * ML=Testing performed at Main Lab DEPARTMENT OF PATHOLOGY, [address] [place] [address] Gregg Oquendo M.D. Director [facility] Permit #[id number] 25 Please note: New reference range, effective 10/14/11 NORMAL REFERENCE RANGE: GREATER THAN 4.1 NG/ML 26 * SERUM LEVELS OF PSA MEASURED USING THE [employer] ACCESS HYBRITECH IMMUNOASSAY SHOULD NOT BE INTERPRETED [...] be used interchangeably. 27 RUN DATE: 05/28/12 [facility] NMI LIVE PAGE 1 RUN TIME: 1518 Specimen Inquiry RUN USER: INTERFACE Name: PETERSONSHERRON JR Status: REG REF Re05/26/12 Age/Sex: 57/M Unit#: [id number] Location: [facility]. : [birth year] SPEC #: [id number] RACHELLE: 05/26/12 STATUS: ROLF REQ #: [id number] RECD: 05/26/[address]: Fantasma PERRY,Ana Lal SOURCE: URINE ENTR: 05/26/12-1714 CHUNG DHALIWAL: SPDESC: ORDERED: URINE C S QUERIES: MEDENT REQUISITION # [id number] SPECIMEN DESCRIPTION: URINE, RANDOM ACT WKST: UR 05/28/12 #1 Procedure Result Verified Site > URINE CULTURE SENSITIVI Final 05/28/12- 1519 ML FINAL: NO GROWTH DAY 2 (<1,000 CFU/mL) ML - [facility] Permit #[id number] [facility] [employer] [facility] [address] DEPARTMENT OF PATHOLOGY, [facility] [employer] [place], [place] [address] [facility] Permit #[id number] Gregg Oquendo M.D. Director Candis Montes M.D. [employer]ge[employer] Operator Procedures Date CPT Code Description Status 06/08/201824362 Inject Tendon Sheath Or Ligament Aponeurosis Eg Plantar Completed Fascia 05/04/2018 90787 Inj/Aspir Major JT Or Bursa W/ US Completed 04/27/201812761 Inject/Drain Joint/Bursa Major W/O US Completed 04/20/201896518 Inject/Drain Joint/Bursa Major W/O US Completed 04/20/201893554 Inject/Drain Joint/Bursa Major W/O US Completed 02/07/2018 76678 Injection Intralesional Up To And Including 7 Lesions Completed 02/07/2018 29082 Removal Skin Tags Up To 15 Completed 10/20/201703498 Inject/Drain Joint/Bursa Major W/O US Completed 09/09/2017 85974 Arthroscopy,Knee,Meniscectomy Medial Or Lateral Completed 09/09/2017 85177 Arthroscopy,Knee,Meniscectomy Medial Or Lateral Completed 08/23/2017 82636 EKG Tracing & Interpretation Completed 06/07/2017 09201 Repair Immediate Wound 2.6-7.5CM Completed Scalp/Axillae/Trunk/Extremities 06/07/2017 01178 Excise Benign Lesion 2.1-3CM Trunk/Arm/Leg Completed 06/07/2017 86131 Excise Benign Lesion 2.1-3CM Trunk/Arm/Leg Completed 12/07/2016 02992 Inject/Drain Joint/Bursa Major W/O US Completed 02/11/2015 63629 Trigger Finger Release Incision / Tendon Sheath Completed Incision 01/16/2015 74633 Inject Tendon Sheath Or Ligament Aponeurosis Eg Plantar Completed Fascia 08/21/2013 71951 EKG, Interpretation Only Completed 07/28/2012 Colonoscopy Completed 12/03/2005 Colonoscopy Completed Encounters Type Date Location Provider CPT E/M Dx Office Visit 04/27/2018 [facility] Mark Monroy Tino, 80302 M25.562 10:00a Of Kevin SAUNDERS M17.12 M75.51 Office Visit 04/18/2018 10:30a [facility] Steven Pacheco 72220 K60.0 Of [facility] Office Visit 03/21/2018 10:30a [facility] Steven Pacheco 43071 K60.0 Of [facility] Office Visit 03/17/2018 1:40p [facility] [place] [address] K64.8 Medicine - [place] Office Visit 03/16/2018 10:15a [place] [address] M25.511 Of Kevin M25.521 M25.522 S49.91xA S59.901A S59.902A W11.xxxA Office Visit 03/07/2018 10:45a [facility] Mark Monroy 16692 M25.562 Kevin Jiménez MD Office Visit 02/07/2018 10:10a [facility] [place]ermat[place] Raú[place] [address] L73.8 L82.1 L91.8 L53.8 Z78.9 R20.8 L91.0 Office Visit 08/23/2017 10:20a [facility] [place] [address] Z01.818 [place] S83.242D K21.9 Office Visit 08/16/2017 8:45a [facility] Mark Monroy 05435 S83.242D Of Kevin Jiménez MD M25.511 M54.12 M17.12 Office Visit 08/08/2017 2:40p [facility] Medicine Jude Marrero 94902 F41.9 Nia White Z23 Office Visit 06/20/2017 10:00a [facility] Mark Jiménez 53723 M16.12 Kevin SAUNDERS S83.242D M25.552 M17.12 Office Visit 05/23/2017 1:30p [facility] [place]ermat[place] Raú[place] [address] L72.0 L73.8 Office Visit 05/16/2017 11:40a [facility] Medicine Jude Marrero, 19281 J31.0 - Nia White Office Visit 01/28/2017 11:00a [facility] Medicine Jude Marrero, 03683 Z00.00 - Nia White K21.9 F41.9 E78.2 Office Visit 12/07/2016 10:00a [facility] Mark Jiménez, 83726 M23.232 Of Kevin SAUNDERS M17.12 Office Visit 11/26/2016 2:20p [facility] [place] [address] J02.9 - Stalin Office Visit 01/14/2016 10:40a [facility] Medicine Jude Marrero, 65450 Z00.00 - Stalin White E78.2 R73.01 K21.9 F41.9 J30.9 Office Visit 09/11/2015 2:00p [facility] Jude Marrero, 85933 M79.675 - Stalin White Office Visit 01/16/2015 10:00a [facility] Laura Sol, 86323 727.03 Of Kevin White Office Visit 12/31/2014 9:00a [facility] Jude Marrero, 20889 V70.0 - Stalin White 300.00 530.81 272.2 790.21 Office Visit 08/05/2014 4:00p [facility] [place] [address] 918.2 - Stalin Office Visit 07/01/2014 10:00a [facility] Jude Marrero, 25749 788.41 - Stalin White V77.91 V04.89 V05.8 Office Visit 2014 11:00a [facility] Jude Marrero, 07747 388.30 - Stalin White V77.91 V77.1 V73.89 Office Visit 09/28/2013 10:40a [facility] Jude Marrero, 36757 300.00 - Stalin White 530.81 Office Visit 08/23/2013 10:00a [facility] Jude Marrero, 50109 562.11 - [place] M.D. 300.00 530.81 726.19 V04.81 Office Visit 04/12/2013 9:40a [facility] Jude ERohit Elida, 07780 300.00 - [place] M.D. Office Visit 01/12/2013 11:00a [facility] Jude JasRohit Marrero, 42702 300.00 - [place] M.D. Office Visit 11/14/2012 9:40a [facility] Jude ERohit Marrero, 30067 562.11 - [place] M.D. Office Visit 10/12/2012 4:00p [facility] Jude JasRohit Marrero, 10003 684 - [place] M.D. Office Visit 09/11/2012 10:20a [facility] Jude JasRohit Marrero, 75637 300.00 - [place] M.D. Office Visit 07/10/2012 10:40a [facility] Jude JasRohit Marrero, 21652 300.00 - [place] M.D. Office Visit 06/12/2012 10:20a [facility] Jude JasRohit Marrero, 67604 300.00 - [place] M.D. Office Visit 05/26/2012 10:30a [facility] Ana Meek, 90570 789.04 - [place] N.P. Office Visit 01/19/2012 11:00a [facility] Jude JasRohit Marrero, 98762 V70.0 - [place] M.D. 530.81 726.19 Plan of Care Future Appointment(s):07/05/2018 9:30 am - Laura Sol M.D. at [facility]09/05/2018 10:30 am - Mark Jiménez MD at [facility]06/19/2018 - Larisa Mary, [facility]-CM65.842 Other synovitis and tenosynovitis, left handFollow up:Follow up: 2 weeks
[2018-07-16 11:28] VITALS: BP 103/69
--- NOTE | 2018-07-16 12:00 | UC ---
Skin Complaint HPI - HPI Summary HPI Summary: Patient presents s/p recent surgical procedure performed by Dr. Sol, he had a left tenosynoectomy and reports he has some discomfort in his finger, and forearm and reports swelling. He states the dressing has become soiled with dried blood. He also presents with rash on his left lower leg and forearm that developed after he was outside pulling weeds. He states the rash is red, and itchy. He has been applying OTC topical steroid cream with minimal relief. - History of Current Complaint Chief Complaint: UCRash Time Seen by Provider: 07/16/18 11:25 Stated Complaint: RASH Hx Obtained From: Patient Onset/Duration: Sudden Onset, Lasting Days Skin Exposure Onset/Duration: Days Ago Timing: Constant Onset Severity: Mild Current Severity: Moderate Pain Intensity: 6 Location: Discrete, Other - left lower leg, and right forearm Character: Pruritus, Redness Aggravating Factor(s): Clothing, Touch Alleviating Factor(s): OTC Meds Associated Signs & Symptoms: Positive: Rash - Allergy/Home Medications Allergies/Adverse Reactions: Allergies Allergy/AdvReac Type Severity Reaction Status Date / Time No Known Allergies Allergy Verified 07/16/18 11:28 Home Medications: Home Medications Ibuprofen 600 mg PO 07/16/18 [History] Review of Systems Constitutional: Negative Skin: Rash Eyes: Negative ENT: Negative Respiratory: Negative Cardiovascular: Negative Gastrointestinal: Negative Genitourinary: Negative Motor: Negative Neurovascular: Negative Musculoskeletal: Negative Neurological: Negative Psychological: Negative Is Patient Immunocompromised?: No All Other Systems Reviewed And Are Negative: Yes PMH/Surg Hx/FS Hx/Imm Hx Previously Healthy: Yes - Surgical History Surgical History: Yes Surgery Procedure, Year, and Place: LT ROTATOR CUFF 2010 [facility]. Sigmoid colectomy 2012 [facility]. TONSILLECTOMY A CHILD. Rt PINKY TRIGGER FINGER. LEFT KNEE [facility]. lt wrist. ORAL SURGERY - Family History Known Family History: Positive: Cardiac Disease - father - CABG at 92 - Social History Occupation: Retired Lives: With Family Alcohol Use: Daily Alcohol Amount: 1 GLASS OF WINE OR BEER DAILY Substance Use Type: None Smoking Status (MU): Current Some Day Smoker Type: Cigars Amount Used/How Often: RARE CIGAR SUMMERTIME Have You Smoked in the Last Year: Yes Household Exposure Type: Cigars - Immunization History Most Recent Influenza Vaccination: 2011 Most Recent Tetanus Shot: UTD Most Recent Pneumonia Vaccination: NEVER Physical Exam Triage Information Reviewed: Yes Appearance: Well-Appearing Vital Signs: Initial Vital Signs Temp 99.0 F 07/16/18 11:23 Pulse 81 07/16/18 11:23 Resp 18 07/16/18 11:23 BP 103/69 07/16/18 11:23 Pulse Ox 100 07/16/18 11:23 Vital Signs Reviewed: Yes Eye Exam: Normal ENT Exam: Normal Neck: Positive: 1 Respiratory Exam: Normal Respiratory: Positive: Lungs clear, Normal breath sounds, No respiratory distress Cardiovascular Exam: Normal Abdominal Exam: Normal Musculoskeletal Exam: Normal Neurological Exam: Normal Skin Exam: Other - Erythemtous raised inflammed linear rash on left lower leg, and small circular patches on right forearm. Without induration or flucuance. Course/Dx - Course Course Of Treatment: Patient presents with posion oak/minerva he is going to be treated with topical steroid ointment. There are no signs or symtpoms of infection. He is not immuncompromised. He also had a soiled dressing of the left forearm I removed the dressing, but did not remove the iodaform layer, rewrapped it as was and he is scheduled to follow up with Dr. Malave in the morning. He reports immediate symtom relief folowing the dressing change. - Differential Diagnoses - Skin Complaint Differential Diagnoses: Poison Minerva, Poison [place] - Diagnoses Provider Diagnoses: poison minerva. dressing change Discharge - Sign-Out/Discharge Documenting (check all that apply): Patient Departure All imaging exams completed and their final reports reviewed: No Studies - Discharge Plan Condition: Stable Disposition: HOME Prescriptions: Fluticasone Propionate 30 gm TP BID #1 oint...g. Patient Education Materials: Poison Minerv[place] (ED) Referrals: Jude Marrero MD [Primary Care Provider] - Additional Instructions: Patients surgical dressing was removed to the iodaform and replaced due to discomfort and soilage. - Billing Disposition and Condition Condition: STABLE Disposition: Home
== END 2018-07-16 11:56 | disposition home or self-care (01) ==
LOC: UCEAST 11:13
DX: M79.645 Pain in left finger(s) (principal); L23.7 Allergic contact dermatitis due to plants, except food; Z72.0 Tobacco use
CPT/HCPCS: 99212; G0463

== ENCOUNTER 2019-02-05 11:16 | Emergency (ER) | payer MEDICARE ==
--- OUTSIDE RECORDS SUMMARY | 2019-02-05 11:22 | XMS REPORT | Continuity of Care Document ---
:1955 External Reference #:[id number] Author Name Leti Rojo Care Team Providers Name Role Phone Jude Marrero III, MD Primary Care Physician Unavailable Payers Date Identification Numbers Payment Provider Subscriber Policy Number: [id number] Medicare Sherron Winkler JR PayID: [id number] [place] [address] Effective: 2018 Policy Number: [id number] Medicare Sherron Winkler JR Expires: 2018 PayID: [id number] [address] [place] [address] Policy Number: [id number] [facility] Sherron Winkler JR PayID: [id number] [address] [place] [address] Effective: 2018 PayID: [id number] Medicare D - Drug Plan Sherron Winkler JR Advance Directives Description No Information Available Problems Date Description Provider Status Onset: 01/19/2012 Gastroesophageal reflux disease Jude Marrero M.D. Active Onset: 01/19/2012 Disorder of shoulder Jude Marrero M.D. Active Onset: 06/12/2012 Anxiety state Jude Marrero M.D. Active Onset: 12/13/2018 Hammer toe Danial Reinoso MD Active Onset: 12/13/2018 Swelling of first metatarsal joint of Danial Reinoso MD Active hallux of left foot Onset: 12/13/2018 Plantar nerve lesion Danial Reinoso MD Active Onset: 03/16/2018 Arthralgia of the upper arm Franky Yoo MD Active Onset: 03/16/2018 Shoulder joint pain Franky Yoo MD Active Family History Date Family Member(s) Observation Comments General Chest Pain General Cancer General Heart Disease Father Heart Disease CABG in his 90s; (+) Amiodarone related lung disease Father due to CHF () - age 96 Mother Alzheimer's Disease Mother due to CHF () - age 87 Mother Bladder Cancer Siblings 2 2 sisters, one on cholesterol Rx Social History Type Date Description Comments Sex Unknown Marital Status Lives 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 Unknown smoker Previously 1.5 ppd max. Began age 12, quit age 20 Smoking Status Reviewed: 01/15/19 Patient is a former (+) rare cigar. smoker Previously 1.5 ppd max. Began age 12, quit age 20 Exercise Exercises sporadically occ active around the Type/Frequency house Allergies, Adverse Reactions, Alerts Date Description Reaction Status Severity Comments 01/19/2012 NKDA Active 01/19/2012 seasonal Active Medications Medication Date Status Form Strength Qnty SIG Indications Ordering Provider Celecoxib 11/14/19 Active Capsules 100mg 120ca 100mg by Mark Monroy 19 ps mouth Tino, twice a MD day as needed Nitrogylcerin 07/28/20 Active Ointment 30Gra use Steven S. 0.2% And 18 ms small Charles Mix, Lidocaine 2% amount MD on affected area twice a day. Olopatadine HCL 01/14/20 Active Solution 0.1% 5ml 1 drop J30.9 Jude Vergara to both tiara Marrero M.Cristhian twice a day as needed Prilosec Active Capsules 20mg 30cap 1 po qd Unknown 00 DR s Multivitamins Active Tablets 30tab 1 po qd Unknown 00 s Hydrocortisone Active Cream 0.5% apply Unknown 00 topicall y twice a day as needed Nasonex Active Suspension 50mcg/Act OTC Unknown 00 Terazosin HCL Active Capsules 10mg take 1 Unknown 00 capsule by mouth every evening Clonazepam Active Tablets 1mg 1/2 a Unknown 00 tab in Am; 1 tab in pm (TDD 1.5 mg) Duloxetine HCL Active Caps DR 30mg 3 tabs Unknown 00 Part by mouth every day Psyllium Seed Active 1 daily Unknown Husk 00 Amphetamine-Dext Active Caps ER 90mg one Unknown roamphet ER 00 24HR capsule once daily in the morning Meloxicam 11/14/19 Hx Tablets 15mg 120ta take 1 Mark Monroy 19 - bs tab by Tino, 11/14/19 mouth 19 with food once a day Cephalexin 07/17/20 Hx Capsules 500mg 28cap 1 tab by M65.842 Laura 18 - s mouth Sol, Unknown four M.D. times a day x 7 days Hydrocodone-Acet 07/17/20 Hx Tablets 5-325mg 20tab 1by M65.842 Laura aminophen 18 - s mouth Sol, Unknown every 6 M.D. hour as needed prn. Hydrocodone-Acet 07/05/20 Hx Tablets 5-325mg 30tab 1 tab by Laura aminophen 18 - s mouth Sol, Unknown every 4- M.D. 6 hours as needed pain Nitroglycerin 03/21/20 Hx Apply K60.0 Steven S. 0.2% And 18 - bid to Charles Mix, Lidocaine Gel 2 Unknown anal MD % canal as instruct ed. Proctosol HC 03/17/20 Hx Cream 2.5% 28.35 apply K64.8 Rohit 18 - 0gm thin [place] Morrell Unknown film to affected area 2-4 times daily Oxycodone-Acetam 03/17/20 Hx Tablets 5-325mg 30tab 1-2 tabs K64.8 Rohit inophen 18 - s by mouth [place] Morrell 04/01/20 every 8 18 hours as needed for pain Oxycodone-Acetam 09/09/20 Hx Tablets 5-325mg 40tab 1 tabs Mark Monroy inophen 17 - s by mouth Tino, 01/30/20 every 6 MD 18 hours as needed for pain Aspirin 09/09/20 Hx Tablets 325mg 28tab take 1 Mark Monroy 17 - s twice a iTno, 01/30/20 day x 14 MD 18 days Tramadol HCL 08/23/20 Hx Tablets 50mg 28tab 1-2 S83.242D Rohit 17 - s tablets Porsche, ORALNDO 01/30/20 every 12 18 hours as needed for pain. Methylprednisolo 08/19/20 Hx TBPK 4mg 21uni take per Mark Monroy ne 17 - ts dosepak Tino, 08/26/20 instruct 17 ions. Celebrex 12/07/19 Hx Capsules 100mg 60cap 1 tab by S83.242A Mark Monroy 17 - s mouth Tino, 01/30/20 twice a MD 18 day as needed Penicillin V 11/26/19 Hx Tablets 500mg 20tab 1 tablet J02.9 Rohit Potassium 17 - s by mouth [place] Morrell 12/06/19 twice a 17 day for 10 days Lidocaine 11/26/19 Hx Solution 2% 100un gargle J02.9 Rohit Viscous 17 - its with [place] Morrell 12/03/19 15ml 17 every 4 hours as needed for throat pain. Acyclovir 09/11/20 Hx Ointment 5% 30gm apply 5 Jude Hawley 15 - times/da Elida, 01/14/20 y to M.D. 16 affected area. Hydrocodone-Acet 08/05/20 Hx Tablets 5-325mg 180ta 1-2 tabs V41.1 Isaias aminophen 14 - bs by mouth [place] Chavez 01/01/20 q4 hours 15 as needed pain limit 6 tabs per day Alprazolam 09/28/20 Hx Tablets 0.5mg 30tab 1/2-1 by F41.9 Jude Hawley 13 - s mouth up Elida, 01/30/20 to three M.D. 18 times a day as needed Prozac 01/13/20 Hx Capsules 40mg 90cap 1 po qd Jude Eisenberg - shikha Marrero, 08/23/20 M.D. 13 Prozac 12/15/19 Hx Capsules 20mg 90cap 1 po qd Jude Eisenberg - s Elida, 01/13/20 M.D. 13 Bactroban 10/12/20 Hx Ointment 2% 15gra apply to Jude Hawley 12 - ms areas Elida, 11/14/19 tid for M.D. 13 5-7 days as needed Buspirone HCL 06/12/20 Hx Tablets 15mg 60tab 1 po bid 300.00 Jude E. 12 - s Elida, 11/14/19 M.D. 13 Zolpidem 06/12/20 Hx Tablets 10mg 30tab 1 tab by F41.9 Jude E. Tartrate 12 - s mouth Elida, 01/30/20 every M.D. 18 night at bedtime as needed Carisoprodol Hx Tablets 350mg 45tab one po Unknown 00 - s tid prn 05/26/20 spasm 12 Alprazolam Hx Tablets 0.5mg 60tab 1 po bid Unknown 00 - s prn 09/11/[address] [place] Wort Hx Capsules 150mg 120ca 2 po qd Unknown 00 - ps 07/10/20 12 [place] Hx Capsules 80mg 1 po Unknown 00 - daily 09/11/20 [address] 81mg 90tab 1 po Unknown 00 - s occasion 01/26/20 ally 14 Ciprofloxacin Hx Tablets 500mg pt not Tenkate, HCL 00 - taking Erin 08/23/20 MD Tima 13 Ibuprofen Hx Tablets 800mg Tenkate, 00 - Erin 09/28/20 MD Tima 13 Metronidazole Hx Tablets 500mg pt not Tenkate, 00 - taking Erin 01/26/20 MD Tima 14 Oxycodone/Acetam Hx Tablets 5-325mg pt not Tenkate, inophen 00 - taking Erin 01/26/20 MD Tima 14 Finacea Hx Gel 15% Unknown - 07/16/20 14 Epipen 2-Oswaldo Hx Solution 0.3mg/0.3 1unit use as Unknown 00 - Auto-Injec ML s directed 03/17/20 t 18 Amitriptyline Hx Tablets 25mg 1 po at Unknown HCL 00 - hs prn 01/14/20 16 Fluticasone Hx Suspension 50mcg/Act 3unit 1 spray Jude E. Propionate 00 - s each Elida, 01/14/20 nostril M.DRohit 16 daily as needed Bupropion HCL ER 00/ Hx Tablets ER 150mg 3 tabs Unknown (XL) 00 - 24HR in the 03/15/20 morning 18 with food Medications Administered in Office Medication Date Status Form Strength Qnty SIG Indications Ordering Provider Depomedrol 40MG 12/28/ Administered Injection Mark F 2018 MD Tino Triamcinolone 12/13/ Administered Injection Danial (Kenalog) 2018 MD Arleth Depomedrol 40MG 11/15/ Administered Injection Laura 2018 Cindy Sol Depomedrol 40MG 09/05/ Administered Injection Junie 2017 Lisick, RPA-C Depomedrol 40MG 06/08/ Administered Injection Laura 2017 Cindy Sol Hyaluron Or 05/04/ Administered Injection Giovanna Derivative,Orth 2018 Andry ovisc,For PA-C Intra-Articular Inj Per Dose Hyaluron Or 04/27/ Administered Injection Mark F Derivative,Orth 2018 MD Tino ovisc,For Intra-Articular Inj Per Dose Hyaluron Or 04/20/ Administered Injection Mark F Derivative,Orth 2018 MD Tino ovisc,For Intra-Articular Inj Per Dose Depomedrol 40MG 04/20/ Administered Injection Mark F 2017 MD Tino Triamcinolone 02/07/ Administered Injection Raúl (Kenalog) 2017 MD Waqas Depomedrol 40MG 10/20/ Administered Injection Mark F 2016 MD Tino Depomedrol 40MG 12/07/ Administered Injection Mark F 2016 MD Tino Depomedrol 80MG 01/16/ Administered Injection Laura 2014 Cindy Sol Immunizations CPT Code Status Date Vaccine Reaction Lot # [id number] Given 08/21/2018 Influenza Virus Vaccine, [id number] Quadrivalent, Split, Preservative Free 05645 Given 02/24/2018 Tdap - No immediate reaction [id number] Tetanus/Diptheria/Acellular noted. Pertussis 25053 Given 01/30/2018 Pneumococcal Conjugate [id number] Vaccine 13 Valent For Intramuscular Use 59510 Given 08/08/2017 Influenza Virus Vaccine, [id number] Quadrivalent, Split, Preservative Free 09906 Given 08/30/2016 Influ Virus Vaccine, [id number] Quadrivalent, Split Virus, [place] [address] Given 08/12/2015 Influenza Virus Vaccine, [id number] Quadrivalent, Split, Preservative Free 18145 Given 07/17/2014 Influenza Virus Vaccine, Quadrivalent, Split, Preservative Free 45106 Given 07/17/2014 Influenza Virus Vaccine, [id number] Quadrivalent, Split, Preservative Free 58337 Given 07/01/2014 Zoster (Zostavax) [id number] 02036 Given 08/23/2013 Flu Vaccine Split Virus [id number] Preservative Free For Indiv 3Yr Older Q2038 Given 07/19/2012 Fluzone Vaccine [id number] 70340 Given 10/24/2007 Tetanus And Diptheria (Td) For Adult Use Preservative Free Vital Signs Date Vital Result Comment 01/15/2019 1:12pm Height 68 inches 5'8" Weight 170.00 lb BP Systolic 142 mmHg BP Diastolic 92 mmHg Respiratory Rate 16 /min Body Temperature 95.2 F Pain Level 7 BMI (Body Mass Index) 25.8 kg/m2 12/28/2018 9:27am Height 68 inches 5'8" Weight 170.00 lb BP Systolic 128 mmHg BP Diastolic 84 mmHg Pain Level 4 varies BMI (Body Mass Index) 25.8 kg/m2 12/13/2018 12:57pm Height 68 inches 5'8" Weight 160.00 lb BP Systolic 142 mmHg BP Diastolic 96 mmHg Respiratory Rate 15 /min Body Temperature 96.8 F Pain Level 8 BMI (Body Mass Index) 24.3 kg/m2 11/15/2018 10:03am Height 68 inches 5'8" Heart Rate 74 /min BP Systolic 130 mmHg BP Diastolic 76 mmHg Body Temperature 97.0 F Pain Level 4 11/14/2018 10:59am Height 68 inches 5'8" Heart Rate 81 /min BP Systolic Sitting 122 mmHg BP Diastolic Sitting 94 mmHg Body Temperature 97.1 F Pain Level 6 O2 % BldC Oximetry 98 % at rest on room air 09/05/2018 11:03am Height 68 inches 5'8" Weight 160.00 lb Heart Rate 78 /min BP Systolic 138 mmHg BP Diastolic 76 mmHg Respiratory Rate 12 /min Pain Level 5 BMI (Body Mass Index) 24.3 kg/m2 08/29/2018 9:41am Heart Rate 72 /min BP Systolic Sitting 138 mmHg BP Diastolic Sitting 86 mmHg Respiratory Rate 18 /min Body Temperature 98.2 F 08/21/2018 10:08am Heart Rate 64 /min BP Systolic 132 mmHg BP Diastolic 88 mmHg Respiratory Rate 18 /min Pain Level 4 07/28/2018 1:18pm Heart Rate 66 /min BP Systolic Sitting 124 mmHg BP Diastolic Sitting 82 mmHg Respiratory Rate 18 /min Body Temperature 98.2 F 07/24/2018 9:44am Heart Rate 72 /min BP Systolic 130 mmHg BP Diastolic 68 mmHg Respiratory Rate 12 /min Body Temperature 97.4 F Pain Level 4 07/19/2018 11:02am Heart Rate 64 /min BP Systolic Sitting 122 mmHg BP Diastolic Sitting 86 mmHg Respiratory Rate 16 /min Body Temperature 97.1 F Pain Level 5 07/18/2018 10:49am Heart Rate 60 /min Respiratory Rate 18 /min Body Temperature 98.1 F 07/17/2018 9:12am Height 68 inches Weight 160.00 lb Heart Rate 80 /min BP Systolic Sitting 124 mmHg BP Diastolic Sitting 70 mmHg Respiratory Rate 14 /min Pain Level 6 BMI (Body Mass Index) 24.3 kg/m2 07/05/2018 9:36am Height 69 inches 5'9" Weight 160.00 lb Heart Rate 72 /min BP Systolic 110 mmHg BP Diastolic 72 mmHg Respiratory Rate 12 /min Pain Level 6 BMI (Body Mass Index) 23.6 kg/m2 06/20/2018 8:43am Heart Rate 84 /min Respiratory Rate 18 /min Body Temperature 97.6 F 06/19/2018 10:04am Height 69 inches 5'9" Weight 160.00 lb Heart Rate 72 /min BP Systolic 118 mmHg BP Diastolic 76 mmHg Respiratory Rate 12 /min Pain Level 0 BMI (Body Mass Index) 23.6 kg/m2 06/13/2018 10:40am Height 69 inches 5'9" Weight 158.00 lb Heart Rate 78 /min BP Systolic 124 mmHg BP Diastolic 72 mmHg Respiratory Rate 12 /min BMI (Body Mass Index) 23.3 kg/m2 06/08/2018 11:20am Height 69 inches 5'9" Weight 164.00 lb Heart Rate 78 /min BP Systolic 138 mmHg BP Diastolic 78 mmHg Respiratory Rate 18 /min Body Temperature 97.8 F Pain Level 7 BMI (Body Mass Index) 24.2 kg/m2 05/04/2018 10:37am Height 69 inches 5'9" Weight 179.00 lb BP Systolic 128 mmHg BP Diastolic 74 mmHg Respiratory Rate 20 /min Pain Level 0 BMI (Body Mass Index) 26.4 kg/m2 04/27/2018 10:50am Height 68 inches 5'8" Weight 160.00 lb Heart Rate 80 /min BP Systolic 120 mmHg BP Diastolic 70 mmHg Respiratory Rate 12 /min Pain Level 3 BMI (Body Mass Index) 24.3 kg/m2 04/20/2018 8:33am Height 68 inches 5'8" Weight 165.00 lb Heart Rate 78 /min BP Systolic 112 mmHg BP Diastolic 77 mmHg Body Temperature 96.7 F BMI (Body Mass Index) 25.1 kg/m2 04/18/2018 10:26am Heart Rate 82 /min Respiratory Rate 18 /min 03/21/2018 10:29am Heart Rate 84 /min Respiratory Rate 16 /min Body Temperature 97.2 F 03/17/2018 1:29pm Height 69 inches 5'9" with shoes Weight 175.50 lb Heart Rate 96 /min BP Systolic 120 mmHg BP Diastolic 76 mmHg Body Temperature 97.8 F O2 % BldC Oximetry 97 % BMI (Body Mass Index) 25.9 kg/m2 03/16/2018 10:36am Height 69 inches with shoes Weight 179.00 lb Heart Rate 76 /min BP Systolic 110 mmHg BP Diastolic 78 mmHg Body Temperature 97.7 F Pain Level 6 BMI (Body Mass Index) 26.4 kg/m2 03/07/2018 10:39am Height 67.7 inches 5'7.70" Weight 170.00 lb Heart Rate 78 /min BP Systolic 110 mmHg BP Diastolic 72 mmHg Respiratory Rate 12 /min Pain Level 1 BMI (Body Mass Index) 26.1 kg/m2 01/30/2018 11:10am Height 67.7 inches 5'7.70" Weight 182.00 lb Heart Rate 64 /min BP Systolic Sitting 130 mmHg BP Diastolic Sitting 84 mmHg O2 % BldC Oximetry 96 % BMI (Body Mass Index) 27.9 kg/m2 12/08/2017 10:47am Height 69 inches 5'9" Heart Rate 71 /min BP Systolic 120 mmHg BP Diastolic 86 mmHg Respiratory Rate 16 /min Body Temperature 97.0 F Pain Level 2 10/20/2017 11:00am Height 69 inches 5'9" Weight 191.00 lb Heart Rate 66 /min BP Systolic Sitting 122 mmHg BP Diastolic Sitting 82 mmHg Body Temperature 97.8 F Pain Level 4 BMI (Body Mass Index) 28.2 kg/m2 09/20/2017 11:09am Height 69 inches 5'9" Weight 193.00 lb Heart Rate 68 /min Respiratory Rate 14 /min Body Temperature 97.4 F Pain Level 5 BMI (Body Mass Index) 28.5 kg/m2 08/23/2017 10:11am Height 69 inches 5'9" Weight 193.00 lb Heart Rate 65 /min BP Systolic Sitting 120 mmHg BP Diastolic Sitting 80 mmHg O2 % BldC Oximetry 98 % BMI (Body Mass Index) 28.5 kg/m2 08/16/2017 8:56am Height 69 inches 5'9" Weight 188.00 lb Heart Rate 95 /min Respiratory Rate 14 /min Body Temperature 97.0 F Pain Level 5 BMI (Body Mass Index) 27.8 kg/m2 08/08/2017 2:24pm Weight 189.00 lb Heart Rate 86 /min BP Systolic Sitting 129 mmHg BP Diastolic Sitting 95 mmHg Body Temperature 97.4 F Pain Level 4 Left knee torn meniscus/arthritis O2 % BldC Oximetry 98 % 06/20/2017 10:09am Height 69 inches 5'9" Weight 187.00 lb BP Systolic 128 mmHg BP Diastolic 82 mmHg Respiratory Rate 18 /min Body Temperature 97.1 F Pain Level 4 BMI (Body Mass Index) 27.6 kg/m2 05/16/2017 11:28am Height 69 inches 5'9" Weight 187.00 lb Heart Rate 63 /min BP Systolic 142 mmHg BP Diastolic 80 mmHg Body Temperature 96.3 F O2 % BldC Oximetry 99 % BMI (Body Mass Index) 27.6 kg/m2 01/28/2017 11:33am Height 69 inches 5'9" Weight 193.00 lb Heart Rate 58 /min BP Systolic Sitting 138 mmHg BP Diastolic Sitting 84 mmHg Respiratory Rate 15 /min Body Temperature 98.0 F O2 % BldC Oximetry 98 % BMI (Body Mass Index) 28.5 kg/m2 12/07/2016 10:02am Height 69 inches 5'9" Weight 188.00 lb Heart Rate 69 /min BP Systolic 150 mmHg BP Diastolic 89 mmHg BMI (Body Mass Index) 27.8 kg/m2 11/26/2016 2:17pm Height 68.5 inches 5'8.50" Weight 189.50 lb Heart Rate 87 /min BP Systolic 140 mmHg BP Diastolic 82 mmHg Body Temperature 99.0 F O2 % BldC Oximetry 97 % BMI (Body Mass Index) 28.4 kg/m2 01/14/2016 10:28am Height 68.5 inches 5'8.50" Weight 195.00 lb Heart Rate 62 /min BP Systolic 130 mmHg BP Diastolic 88 mmHg Body Temperature 97.1 F O2 % BldC Oximetry 98 % BMI (Body Mass Index) 29.2 kg/m2 09/11/2015 2:00pm Weight 189.00 lb Heart Rate 87 /min BP Systolic Sitting 144 mmHg BP Diastolic Sitting 86 mmHg Body Temperature 96.6 F 02/24/2015 2:01pm Height 69.25 inches 5'9.25" Weight 185.00 lb Pain Level 0 BMI (Body Mass Index) 27.1 kg/m2 01/16/2015 10:07am Height 69.25 inches 5'9.25" Weight 185.00 lb Heart Rate 66 /min BP Systolic 133 mmHg BP Diastolic 96 mmHg Pain Level 5 BMI (Body Mass Index) 27.1 kg/m2 12/31/2014 8:53am Height 69.25 inches 5'9.25" Weight 187.50 lb Heart Rate 70 /min BP Systolic Sitting 130 mmHg BP Diastolic Sitting 74 mmHg O2 % BldC Oximetry 96 % BMI (Body Mass Index) 27.5 kg/m2 08/05/2014 3:50pm Weight 189.00 lb Heart Rate 88 /min BP Systolic Sitting 126 mmHg BP Diastolic Sitting 70 mmHg Body Temperature 98.3 F 07/17/2014 11:36am Height 68.75 inches 5'8.75" Weight 187.50 lb Heart Rate 57 /min BP Systolic Sitting 123 mmHg BP Diastolic Sitting 77 mmHg Body Temperature 97.3 F O2 % BldC Oximetry 98 % BMI (Body Mass Index) 27.9 kg/m2 07/01/2014 10:00am Height 68.75 inches 5'8.75" Weight 191.50 lb Heart Rate 68 /min BP Systolic Sitting 112 mmHg BP Diastolic Sitting 68 mmHg Body Temperature 97.1 F BMI (Body Mass Index) 28.5 kg/m2 2014 11:07am Weight 190.00 lb Heart Rate 74 /min BP Systolic Sitting 124 mmHg BP Diastolic Sitting 85 mmHg Body Temperature 96.8 F 09/28/2013 10:44am Height 69 inches 5'9" Weight 182.75 lb Heart Rate 64 /min BP Systolic Sitting 142 mmHg BP Diastolic Sitting 88 mmHg BMI (Body Mass Index) 27.0 kg/m2 08/23/2013 10:03am Height 68.75 inches 5'8.75" Weight 191.00 lb Heart Rate 64 /min BP Systolic Sitting 116 mmHg BP Diastolic Sitting 78 mmHg BMI (Body Mass Index) 28.4 kg/m2 04/12/2013 9:37am Height 68.75 inches 5'8.75" Weight 181.00 lb Heart Rate 62 /min BP Systolic Sitting 136 mmHg BP Diastolic Sitting 84 mmHg BMI (Body Mass Index) 26.9 kg/m2 01/12/2013 11:05am Height 68.75 inches 5'8.75" Weight 185.00 lb Heart Rate 74 /min BP Systolic Sitting 136 mmHg BP Diastolic Sitting 76 mmHg BMI (Body Mass Index) 27.5 kg/m2 11/14/2012 10:20am Height 68.75 inches 5'8.75" Weight 185.50 lb Heart Rate 66 /min BP Systolic Sitting 122 mmHg BP Diastolic Sitting 72 mmHg BMI (Body Mass Index) 27.6 kg/m2 10/12/2012 3:54pm Height 68.75 inches 5'8.75" Weight 192.00 lb Heart Rate 88 /min BP Systolic Sitting 102 mmHg BP Diastolic Sitting 68 mmHg BMI (Body Mass Index) 28.6 kg/m2 09/11/2012 10:41am Height 68.75 inches 5'8.75" Weight 186.00 lb Heart Rate 76 /min BP Systolic Sitting 110 mmHg BP Diastolic Sitting 70 mmHg BMI (Body Mass Index) 27.7 kg/m2 07/10/2012 10:38am Height 68.75 inches 5'8.75" Weight 188.00 lb Heart Rate 60 /min BP Systolic Sitting 104 mmHg BP Diastolic Sitting 74 mmHg BMI (Body Mass Index) 28.0 kg/m2 06/12/2012 10:32am Height 69 inches 5'9" Weight 186.00 lb Heart Rate 60 /min BP Systolic Sitting 132 mmHg BP Diastolic Sitting 90 mmHg BMI (Body Mass Index) 27.5 kg/m2 05/26/2012 10:23am Height 69 inches 5'9" Weight 184.00 lb Heart Rate 66 /min BP Systolic Sitting 118 mmHg BP Diastolic Sitting 70 mmHg Body Temperature 97.5 F lt ear BMI (Body Mass Index) 27.2 kg/m2 01/19/2012 11:20am Height 69 inches 5'9" Weight 189.00 lb Heart Rate 62 /min BP Systolic Sitting 142 mmHg BP Diastolic Sitting 90 mmHg BMI (Body Mass Index) 27.9 kg/m2 Results Test Date Facility Test Result H/L Range Note Laboratory test 07/14/2018 [facility] Surgical SEE RESULT 1 , [address] [place] [address] [phone] CBC Auto Diff 08/24/2017 [facility] White Blood 7.5 10^3/uL N 3.5-10.[address] [place] [address] [phone] Red Blood Count 4.68 10^6/uL N 4.0-5.4 Hemoglobin 13.9 g/dL Low 14.0-18.0 Hematocrit 41 % Low 42-52 Mean Corpuscular Volume 87 fL N 80-94 Mean Corpuscular Hemoglobin 30 pg N 27-31 Mean Corpuscular HGB Conc 34 g/dL N 31-36 Red Cell Distribution Width 13 % N 10.5-15 Platelet Count 193 10^3/uL N 150-450 Mean Platelet Volume 9 um3 N 7.4-10.4 Abs Neutrophils 5.7 10^3/uL N 1.5-7.7 Abs Lymphocytes 0.9 10^3/uL Low 1.0-4.8 Abs Monocytes 0.8 10^3/uL N 0-0.8 Abs Eosinophils 0 10^3/uL N 0-0.6 Abs Basophils 0 10^3/uL N 0-0.2 Abs Nucleated RBC 0 10^3/uL N Granulocyte % 76.0 % N 38-83 Lymphocyte % 12.4 % Low 25-47 Monocyte % 10.7 % High 1-9 Eosinophil % 0.5 % N 0-6 Basophil % 0.4 % N 0-2 Nucleated Red Blood Cells % 0 N Basic Metabolic Panel 08/24/2017 [facility] Sodium 136 mmol/L N 133-[address] [place] [address] [phone] Potassium 3.9 mmol/L N 3.5-5.0 Chloride 102 mmol/L N 101-111 Co2 Carbon Dioxide 27 mmol/L N 22-32 Anion Gap 7 mmol/L N 2-11 Glucose 93 mg/dL N 70-100 Blood Urea Nitrogen 25 mg/dL High 6-24 Creatinine 1.01 mg/dL N 0.67-1.17 BUN/Creatinine Ratio 24.8 High 8-20 Calcium 9.6 mg/dL N 8.6-10.3 Egfr Non- 74.4 N >60 Egfr 95.6 N >60 3 Laboratory test 11/26/2016 [facility] Culture Throat SEE RESULT 4, [address] [address] [phone] Laboratory test 11/26/2016 [employer] [facility] Culture Throat Negative finding Laboratory test 08/04/2016 [facility] Surgical SEE RESULT 6 , [address] [place] [address] Order [phone] Laboratory test 01/07/2016 [facility] Glucose 98 mg/dL N 70- [address] 0 [place] [address] [phone] Hemoglobin A1c (Glyco HGB) 5.2 % N Less than 6.0 8 Lipid Profile 01/07/2016 [facility] Triglycerides 212 mg/dL N 9 (Trig/Chol/HDL) [address] [place] [address] [phone] Cholesterol 168 mg/dL N 10 HDL Cholesterol 30.1 mg/dL N 11 LDL Cholesterol 96 mg/dL N 12 Laboratory 06/26/2014 [facility] Hepatitis C Nonreactive N Nonreactive 13, test finding [address] Antibody 14 [place] [address] [phone] Basic 06/26/2014 [facility] Sodium 138 mmol/L N 133-[address] [place] [address] [phone] Potassium 3.9 mmol/L N 3.7-5.6 Chloride 104 mmol/L N 101-111 Co2 Carbon Dioxide 29 mmol/L N 22-32 Anion Gap 5 mmol/L N 2-11 Glucose 105 mg/dL High 70-100 Blood Urea Nitrogen 19 mg/dL N 6-24 Creatinine 1.11 mg/dL N 0.67-1.17 BUN/Creatinine Ratio 17.1 N 8-20 Calcium 9.4 mg/dL N 8.6-10.3 Egfr Non- 67.3 N >60 Egfr 86.6 N >60 15 Lipid Profile 06/26/2014 [facility] Triglycerides 334 mg/dL N 16 (Trig/Chol/HDL) [address] [place] [address] [phone] Cholesterol 176 mg/dL N 17 HDL Cholesterol 26.4 mg/dL N 18 LDL Cholesterol 83 mg/dL N 19 Basic Metabolic Panel 08/21/2013 [facility] Sodium 139 mmol/L 133-[address] [place] [address] [phone] Potassium 3.9 mmol/L 3.5-5.0 Chloride 104 mmol/L 101-111 Co2 Carbon Dioxide 30.0 mmol/L 22-32 Anion Gap 5.0 mmol/L 2-11 Glucose 100 mg/dL 70-100 Blood Urea Nitrogen 12 mg/dL 6-24 Creatinine 0.90 mg/dL 0.50-1.40 BUN/Creatinine Ratio 13.3 8-20 Calcium 9.3 mg/dL 8.1-9.9 Egfr Non- 86.1 >60 Egfr 110.7 >60 20 CBC Auto Diff 08/21/2013 [facility] White Blood 5.2 10^3/uL 4.8-10.[address] [place] [address] [phone] Red Blood Count 4.50 10^6/uL 4.0-5.4 Hemoglobin [...] 0-2 Nucleated Red Blood Cells % 0.2 Laboratory test finding 07/10/2013 [facility] Lipase 18 U/L Low 22-51 [address] [place] [address] [phone] C Reactive Protein 1.8 mg/dL High Less than 0.5 Comp Metabolic Panel 07/10/2013 [facility] Sodium 136 mmol/L 133-145 [address] [place] [address] [phone] Potassium 3.4 mmol/L Low 3.5-5.0 Chloride 104 [...] Egfr Non- 76.2 >60 Egfr 98.0 >60 21 CBC Auto Diff 07/10/2013 [facility] White Blood 10.7 10^3/uL 4.8-10.[address] [place] [address] [phone] Red Blood Count 4.66 10^6/uL 4.0-5.4 Hemoglobin [...] 0-2 Nucleated Red Blood Cells % 0.1 Urinalysis 07/10/2013 [facility] Urine Color Yellow [address] [place] [address] [phone] Urine Appearance Clear Urine Specific [place] 1.014 1.010-1.030 Urine Esterase Negative Negative Urine Nitrate Negative Negative Urine Urobilinogen Negative E.U./dL Negative Urine Protein Negative mg/dL Negative Urine pH 7.5 5-9 Urine Blood Negative Negative Urine Ketones Trace mg/dL Abnormal Negative Urine Bilirubin Negative Negative Urine Glucose Negative mg/dL Negative Laboratory test finding 11/11/2012 [facility] Lipase 23 U/L 22-51 [address] [place] [address] [phone] Creatine Kinase 122 U/L 0-200 CKMB 1.7 ng/mL 0.3-4.0 22 Troponin I 0.01 ng/mL 0-0.06 23 Myoglobin 47.60 ng/mL 17.4-105.7 C Reactive Protein 2.6 mg/dL High Less than 0.5 Comp Metabolic Panel 11/11/2012 [facility] Sodium 136 mmol/L 133-145 [address] [place] [address] [phone] Potassium 4.2 mmol/L 3.5-5.0 Chloride 104 mmol/L [...] Egfr Non- 62.0 >60 Egfr 79.7 >60 24 CBC Auto 11/11/2012 [facility] White Blood 15.5 10^3/uL High 4.8-10.[address] [place] [address] [phone] Red Blood Count 5.21 10^6/uL 4.0-5.4 Hemoglobin [...] Cells % 0 Stool For Blood 11/11/2012 [facility] Stool Occult (SEE NOTE) [address] [place] [address] [phone] Urine Culture And 11/11/2012 [facility] Urine Culture (SEE NOTE ) [address] [place] [address] [phone] CBC With Manual 08/28/2012 [facility] White Blood 5.9 10^3/uL 4.8-10 Diff 101 [facility] Count .8 [place] [address] [phone] Red Blood Count 4.85 10^6/uL 4.0-5.4 Hemoglobin [...] % RBC Morphology Normal Normal Laboratory test 05/30/2012 [facility] Ferritin 285 NG/ML 24- 336 finding [address] [place] [address] [phone] Vitamin B12 And 05/30/2012 [facility] Vitamin B12 507 pg/mL 180-914 Folate Serum [address] [place] [address] [phone] Folic Acid > 24.4 NG/ML See Below 27 Retic Count 05/30/2012 [facility] Red Cell Count 4.21 CUMM Low 4.6-6.2 [address] [place] [address] [phone] Hemoglobin 13.0 g/dL Low 14.0-18.0 Hematocrit 37 % Low 42-52 Reticulocyte Count 1.23 % 0.5-1.5 Corrected Retic 1.0 % 0.5-1.5 Retic Index 0.7 Mean Retic Volume 99.2 Immature Retic Fraction 0.37 RBC Retic Count 4.21 CUMM Low 4.6-6.2 Hematocrit For Retic Coun 37 % Low 42-52 CBC With Manual 05/26/2012 [facility] White Blood 7.0 CUMM 4.8-10.[address] [place] [address] [phone] Red Cell Count 4.37 CUMM Low 4.6-6.2 [...] Eosinophil 1 % 0-6 RBC Morphology NORMAL Laboratory test 05/26/2012 [facility] PSA,Diagnostic 0.49 NG/ML 0-4 [address] [place] [address] [phone] Urine Culture & 05/26/2012 [facility] M [address] ---- <[place] [address] NOTE> [phone] 1 [id number] 2 SEE RESULT BELOW Name: SHERRON WINKLER JR : [address]: Laura Sol MD Acct: [id number] Unit: [id number] AGE: 63 Location: [facility]: 07/14/18 SEX: M Status[place] [facility] [place]: [id number] RACHELLE: 07/14/18-[address] [facility] [address]: Laura Sol MD REQ: [id number] RECD: 07/14/18 STATUS: SOUT _ ORDERED: LEVEL 3 COMMENTS: [id number] FINAL DIAGNOSIS Left hand, extensor tendon, excision: -- Chronic tenosynovitis with degenerative change. PRE-OPERATIVE DIAGNOSIS Left hand tenosynovitis GROSS DESCRIPTION The specimen is received in formalin labeled, Extensor Tenosynovitis Left Hand, and consists of a 4.0 x 3.9 x 0.5 cm aggregate of bright-white irregular rubbery fibrous tissue fragments admixed with yellow fat. Manufacturing Machine Operator sections, one cassette. Signed by and Reported on: Angie Delarosa MD 07/18/18 1057 END OF REPORT DEPARTMENT OF PATHOLOGY, [address] [place] [address] Gregg Oquendo M.D. Director [facility] # [id number] 3 Because ethnic data is not always readily [...] 15-29 5 Kidney failure <15 (or dialysis) 4 [id number] 5 SEE RESULT BELOW Name: SHERRON WINKLER JR : [address]: Rohit Morrell NP Acct: [id number] Unit: [id number] AGE: 61 Location: [facility] Re11/26/16 SEX: M Status: REG REF SPEC: [id number] RACHELLE: 11/26/16-[address] [facility] [address]: Rohit Morrell NP REQ: [id number] RECD: 11/26/16 STATUS: COMP _ SOURCE: THROAT SPDESC: ORDERED: Throat Culture COMMENTS: [id number] Procedure Result Reported Site Throat Culture Final 11/28/16- 1200 ML Organism 1 NORMAL NATHALIE Quantity 3+ Throat cultures are clinically indicated to detect the presence of group A strep, arcanobacterium and yeast. In certain cases, predominating organisms will be reported. * ML - MAIN LAB (PSC1) . END OF REPORT * ML=Testing performed at Main Lab DEPARTMENT OF PATHOLOGY, [address] [place] [address] Gregg Oquendo M.D. Director [facility] # [id number] 6 [id number] 7 SEE RESULT BELOW Name: SHERRON WINKLER JR : [address]: Yannick Madsen MD Acct: [id number] Unit: [id number] AGE: 61 Location: [facility] Re08/04/16 SEX: M Status: REG REF SPEC: [id number] RACHELLE: 08/04/16- [facility] DR: Yannick Madsen MD REQ: [id number] RECD: 08/04/16 STATUS: LORENA WILKES DR: Jude Marrero III, MD _ ORDERED: LEVEL IV COMMENTS: [id number] FINAL DIAGNOSIS Esophagus, distal at 42 cm, biopsy: -- Squamous and columnar mucosa with chronic inflammation. -- Negative for intestinal metaplasia and dysplasia. CLINICAL HISTORY Pain in back; Prilosec given in [place]. Mother - bladder cancer and smoker POST-OPERATIVE [...] performed at Main Lab DEPARTMENT OF PATHOLOGY, [address] [place] [address] Gregg Oquendo M.D. Director [facility] # [id number] 8 Therapeutic target for the treatment of diabetes Mellitus patients is <7% HBA1C, and in selective patients <6.0%.Please refer to [place] [employer] Diabetic care guidelines for further information. 9 Desirable <150 Borderline high 150-199 High 200-499 Very High >500 10 Desirable <200 Borderline high 200-239 High >239 11 Low <40 Desirable: 40-60 High: >60 12 Desirable: <100 mg/dL Near Optimal: 100-129 mg/dL Borderline High: 130-159 mg/dL High: 160-189 mg/dL Very High: >189 mg/dL 13 FASTING 14 FASTING 15 Because ethnic data is not always readily [...] 15-29 5 Kidney failure <15 (or dialysis) 16 Desirable <150 Borderline high 150-199 High 200-499 Very High >500 17 Desirable <200 Borderline high 200-239 High >239 18 Low <40 Desirable: 40-60 High: >60 19 Desirable <100 Near Optimal 100-129 Borderline high 130-159 High 160-189 Very High >189 20 Because ethnic data is not always readily [...] 15-29 5 Kidney failure <15 (or dialysis) 21 Because ethnic data is not always readily [...] 15-29 5 Kidney failure <15 (or dialysis) 22 CKMB interpretation should be made in conjunction with clinical symptoms, patient history and EKG changes. 23 Reference Range and Interpretation: TnI (ng/ml) Interpretation Less Than 0.06 ng/mL Not supportive of diagnosis of TN 0.06 - 0.50 ng/ml Indeterminate: suggest serial studies if clinically indicated. Greater than 0.5 ng/mL Consistent with diagnosis of TN 24 Because ethnic data is not always readily [...] 15-29 5 Kidney failure <15 (or dialysis) 25 RUN DATE: 11/11/12 [facility] LAB LIVE PAGE 1 RUN TIME: [address] [place] [address] Specimen Inquiry Name: SHERRON WINKLER JR : [address]: Erin Hodgson Acct: [id number] Unit: [id number] AGE: 57 Location: ED Re11/11/12 SEX: M Status: REG ER SPEC: [id number] RACHELLE: 11/11/12-[address] [facility] [address]: Erin Paredes MD REQ: [id number] RECD: 11/11/12 STATUS: ROLF WILKES DR: Elida LAIRD MD,Jude _ SOURCE: STOOL SPDESC: ORDERED: Hemoccult Procedure Result Verified Site Stool Occult Blood Final 11/11/12- 1746 ML Stool Occult Blood Negative END OF REPORT * ML=Testing performed at Main Lab DEPARTMENT OF PATHOLOGY, [facility] [facility] [place] [employer] [place], [place] [address] Gregg Oquendo M.D. Director [facility] Permit #[id number] 26 RUN DATE: 11/13/12 [facility] LAB LIVE PAGE 1 RUN TIME: 928 [facility] [place] [facility] [place] [employer] [place], [place] [address] Specimen Inquiry Name: SHERRON WINKLER : [address]: Erin Hodgson Acct: [id number] Unit: [id number] AGE: 57 Location: ED Re11/11/12 SEX: M Status: DEP ER SPEC: [id number] RACHELLE: 11/11/12-[address]: Erin Paredes MD REQ: [id number] RECD: 11/11/12 STATUS: ROLF WILKES DR: Jude Marrero III, MD _ SOURCE: URINE SPDESC: ORDERED: Urine Culture Procedure Result Verified Site Urine Culture Final 11/13/12- 927 ML No Growth Day 2 (<1,000 CFU/mL) END OF REPORT * ML=Testing performed at Main Lab DEPARTMENT OF PATHOLOGY, [address] [place] [address] Gregg Oquendo M.D. Director [facility] Permit #[id number] 27 Please note: New reference range, effective 10/14/11 NORMAL REFERENCE RANGE: GREATER THAN 4.1 NG/ML 28 * SERUM LEVELS OF PSA MEASURED USING THE [employer] ACCESS HYBRITECH IMMUNOASSAY SHOULD NOT BE INTERPRETED [...] methods of kits cannot be used interchangeably. 29 RUN DATE: 05/28/12 [facility] NMI LIVE PAGE 1 RUN TIME: 1519 Specimen Inquiry RUN USER: INTERFACE Name: PETERSONSHERRON JR Status: REG REF Re05/26/12 Age/Sex: 57/M Unit#: [id number] Location: [facility] : [birth year] SPEC #: [id number] RACHELLE: 05/26/12 STATUS: COMP REQ #: [id number] RECD: 05/26/[address]: Fantasma PERRY,Ana Lal SOURCE: URINE ENTR: 05/26/[address]: [facility]: ORDERED: URINE C S QUERIES: MEDENT REQUISITION # [id number] SPECIMEN DESCRIPTION: URINE, RANDOM ACT WKST: UR 05/28/12 #1 Procedure Result Verified Site > URINE CULTURE SENSITIVI Final 05/28/12- 1519 ML FINAL: NO GROWTH DAY 2 (<1,000 CFU/mL) - [facility] Permit #[id number] [address] [place] [address] DEPARTMENT OF PATHOLOGY, [address] [place] [address] [facility] Permit #[id number] Gregg Oquendo M.D. Director Candis Montes M.D. [employer] Procedures Date Code Description Status 12/28/2018 Inject/Drain Joint/Bursa Major W/O US Completed 12/13/2018 15758 Injection Anesthetic Agent/Steroid Plantar Common Completed Digital Nerve 11/15/2018 Inject/Drain Joint/Bursa Small W/O US Completed 09/05/2018 Inject/Drain Joint/Bursa Major W/O US Completed 07/14/2018 86063 Synovectomy,Extensor Tendon Sheath,Wrist,Single Completed Compartment 07/14/201898162 Synovectomy,Extensor Tendon Sheath,Wrist,Single Completed Compartment 07/10/2018 47025 Chemodenervation Internal Anal Sphincter Completed 06/08/2018 Inject/Drain Joint/Bursa Intermediate W/O US Completed 05/04/2018 Inj/Aspir Major JT Or Bursa W/ US Completed 04/27/2018 66389 Inject/Drain Joint/Bursa Major W/O US Completed 04/20/201832210 Inject/Drain Joint/Bursa Major W/O US Completed 04/20/2018 Inject/Drain Joint/Bursa Major W/O US Completed 02/07/2018 29188 Removal Skin Tags Up To 15 Completed 02/07/2018 49290 Injection Intralesional Up To And Including 7 Lesions Completed 10/20/2017 Inject/Drain Joint/Bursa Major W/O US Completed 09/09/2017 83644 Arthroscopy,Knee,Meniscectomy Medial Or Lateral Completed 09/09/2017 30701 Arthroscopy,Knee,Meniscectomy Medial Or Lateral Completed 08/23/2017 53079 EKG Tracing & Interpretation Completed 06/07/2017 93716 Repair Immediate Wound 2.6-7.5CM Completed Scalp/Axillae/Trunk/Extremities 06/07/2017 79025 Excise Benign Lesion 2.1-3CM Trunk/Arm/Leg Completed 06/07/2017 40396 Excise Benign Lesion 2.1-3CM Trunk/Arm/Leg Completed 12/07/2016 55602 Inject/Drain Joint/Bursa Major W/O US Completed 02/11/2015 52179 Trigger Finger Release Incision / Tendon Sheath Completed Incision 01/16/2015 21935 Inject Tendon Sheath Or Ligament Aponeurosis Eg Plantar Completed Fascia 08/21/2013 97918 EKG, Interpretation Only Completed 07/28/2012 59752180 Colonoscopy Completed 12/03/2005 89408648 Colonoscopy Completed Encounters Type Date Location Provider Dx Diagnosis Office Visit 12/28/2018 Orthopedic Mark Monroy M25.562 Pain in left knee 9:15a Services Of Kevin Jiménez MD M17.12 Unilateral primary osteoarthritis, left knee Office Visit 12/13/2018 1:00p Orthopedic Danial Reinoso, G57.62 Lesion of Services Of MD karmen pope C.M.A. left lower limb M21.612 Bunion of left foot M20.42 Other hammer toe(s) (acquired), left foot Office Visit 11/15/2018 Orthopedic Laura M18.12 Unil primary 10:00a Services Of Cindy Sol osteoarth of first C.M.A. carpometacarp joint, l hand Office Visit 11/14/2018 Orthopedic Mark Monroy M17.12 Unilateral primary 10:30a Services Of MD Tino osteoarthritis, C.M.A. left knee M25.562 Pain in left knee Office Visit 09/05/2018 10:30a Orthopedic Mark Monroy M25.562 Pain in left Services Of Kevin Jiménez MD knee M17.12 Unilateral primary osteoarthritis, left knee Office Visit 08/29/2018 9:45a Surgical Steven Cha K60.1 Chronic anal [facility] Of MD Tara fissure [facility] Office Visit 07/28/2018 1:15p Surgical Steven Rivera60.1 Chronic anal [facility] Of MD Tara fissure [facility] Office Visit 07/05/2018 9:30a Orthopedic Laura Sol M65.842 Other synovitis Services Of Cindy and C.M.A. tenosynovitis, left hand Office Visit 06/20/2018 9:00a Surgical Steven Cha K60.1 Chronic anal [facility] Of MD Tara fissure [facility] Office Visit 06/19/2018 9:30a Orthopedic Larisa Mary M65.842 Other synovitis Services Of RPA-C and C.MRohitARohit tenosynovitis, left hand Office Visit 06/13/2018 10:30a Orthopedic Mark Monroy M25.511 Pain in right Services Of MD Tino shoulder C.M.A. M25.562 Pain in left knee M17.12 Unilateral primary osteoarthritis, left knee M25.532 Pain in left wrist Office Visit 06/08/2018 Orthopedic Laura M65.842 Other synovitis and 11:00a Services Of Cindy Sol tenosynovitis, left C.M.A. hand M70.21 Olecranon bursitis, right elbow Office Visit 04/27/2018 10:00a Orthopedic Mark Monroy M25.562 Pain in left Services Of Kevin Jiménez MD knee M17.12 Unilateral primary osteoarthritis, left knee M75.51 Bursitis of right shoulder Office Visit 04/20/2018 8:30a Orthopedic Mark Monroy M75.51 Bursitis of Services Of MD Tino right shoulder C.M.A. M25.562 Pain in left knee M17.12 Unilateral primary osteoarthritis, left knee Office Visit 04/18/2018 Surgical Steven SRohit K60.0 Acute anal 10:30a Associates Of MD Tara fissure [facility] Office Visit 03/21/2018 Surgical Steven Cha K60.0 Acute anal 10:30a Associates Of MD Tara fissure [facility] Office Visit 03/17/2018 [facility] Internal Rohit Morrell FILM OR TAPE LIBRARIAN K64.8 Other hemorrhoids 1:40p Medicine - [place] Office Visit 03/16/2018 Orthopedic Franky Yoo MD M25.511 Pain in right 10:15a Services Of shoulder C.M.A. M25.521 Pain in right elbow M25.522 Pain in left elbow S49.91xA Unsp injury of right shoulder and upper arm, init encntr S59.901A Unspecified injury of right elbow, initial encounter S59.902A Unspecified injury of left elbow, initial encounter W11.xxxA Fall on and from ladder, initial encounter Office Visit 03/07/2018 10:45a Orthopedic Mark Monroy M25.562 Pain in left Services Of MD Tino knee C.M.A. Office Visit 02/07/2018 10:10a [facility] Dermatology Raúl Alan, L73.8 Other specified MD follicular disorders L82.1 Other seborrheic keratosis L91.8 Other hypertrophic disorders of the skin L53.8 Other specified erythematous conditions Z78.9 Other specified health status R20.8 Other disturbances of skin sensation L91.0 Hypertrophic scar Office Visit 08/23/2017 10:20a [facility] Internal Rohit Morrell, Z01.818 Encounter for other Medicine - FILM OR TAPE LIBRARIAN preprocedural [place] examination S83.242D Oth tear of medial meniscus, current injury, left knee, subs K21.9 Gastro-esophageal reflux disease without esophagitis Office Visit 08/16/2017 8:45a Orthopedic Mark Monroy S83.242D Oth tear of Services Of MD Tino medial C.M.A. meniscus, current injury, left knee, subs M25.511 Pain in right shoulder M54.12 Radiculopathy, cervical region M17.12 Unilateral primary osteoarthritis, left knee Office Visit 08/08/2017 2:40p [facility] Internal Jude Hawley F41.9 Anxiety disorder, Beba Marrero M.D. unspecified [facility] Z23 Encounter for immunization Office Visit 06/20/2017 Orthopedic Mark F M16.12 Unilateral primary 10:00a Services Of MD Tino osteoarthritis, left C.M.A. hip S83.242D Oth tear of medial meniscus, current injury, left knee, subs M25.552 Pain in left hip M17.12 Unilateral primary osteoarthritis, left knee Office Visit 05/23/2017 1:30p [facility] Dermatology Raúl Alan MD L72.0 Epidermal cyst L73.8 Other specified follicular disorders Office Visit 05/16/2017 11:40a [facility] Internal Jude Hawley J31.0 Chronic Beba Marrero M.D. rhinitis [place] Office Visit 01/28/2017 11:00a [facility] Internal Jude Hawley Z00.00 Encntr for Beba Marrero M.D. general adult [facility] medical exam w/o abnormal findings K21.9 Gastro-esophageal reflux disease without esophagitis F41.9 Anxiety disorder, unspecified E78.2 Mixed hyperlipidemia Office Visit 12/07/2016 10:00a Orthopedic Mark F M23.232 Derang of Services Of MD Tino medial meniscus C.M.A. due to old tear/inj, left knee M17.12 Unilateral primary osteoarthritis, left knee Office Visit 11/26/2016 2:20p [facility] Internal Rohit Morrell J02.9 Acute pharyngitis, Medicine - FILM OR TAPE LIBRARIAN unspecified [place] Office Visit 01/14/2016 10:40a [facility] Internal Jude Hawley Z00.00 Encntr for general Beba Marrero M.D. adult medical exam [place] w/o abnormal findings E78.2 Mixed hyperlipidemia R73.01 Impaired fasting glucose K21.9 Gastro-esophageal reflux disease without esophagitis F41.9 Anxiety disorder, unspecified J30.9 Allergic rhinitis, unspecified Office Visit 09/11/2015 [facility] Sabine Hawley M79.675 Pain in left 2:00p Beba Marrero M.D. toe(s) [place] Office Visit 01/16/2015 Orthopedic Laura 727.03 Trigger Finger 10:00a Services Of Cindy Sol Acquired C.M.A. Office Visit 12/31/2014 [facility] Internal Jude Hawley V70.0 Examination 9:00a Beba Marrero M.D. General Medical [place] Routine AT [facility] 300.00 Anxiety State Unspec 530.81 Esophageal Reflux 272.2 Hyperlipidemia Mixed 790.21 Impaired Fasting Glucose Office Visit 08/05/2014 4:00p [facility] Internal Isaias Chavez, 918.2 Injury Superficial Medicine - FILM OR TAPE LIBRARIAN Conjunctiva [place] Office Visit 07/01/2014 10:00a [facility] Internal Jude Hawley 788.41 Urinary Frequency Cindy James V77.91 Screening For Lipoid Disorders V04.89 Need For Prophylactic Vaccination & Inoculation Other Virus V05.8 Single Disease Spec Other Vaccination & Inoculation Office Visit 2014 11:00a [facility] Internal Jude Hawley 388.30 Tinnitus Beba Marrero M.D. Unspecified [place] V77.91 Screening For Lipoid Disorders V77.1 Screening Diabetes Mellitus V73.89 Screening Examination Viral Diseases Other Spec Office Visit 09/28/2013 10:40a [facility] Internal Jude Hawley 300.00 Anxiety State Beba Marrero M.D. Unspec [place] 530.81 Esophageal Reflux Office Visit 08/23/2013 10:00a [facility] Internal Jude Hawley 562.11 Diverticulitis Colon Beba Marrero M.D. W/O Hemorrhage [place] 300.00 Anxiety State Unspec 530.81 Esophageal Reflux 726.19 Shoulder Disorders Other Spec V04.81 Need For Prophylactic Vaccination & Inoculation/Influenza Office Visit 04/12/2013 9:40a [facility] Internal Jude Hawley 300.00 Anxiety State Unspec Beba Marrero M.D. [place] Office Visit 01/12/2013 11:00a [facility] Internal Jude Hawley 300.00 Anxiety State Unspec Beba Marrero M.D. [place] Office Visit 11/14/2012 9:40a [facility] Sabine Hawley 562.11 Diverticulitis Colon Beba Marrero M.D. W/O Hemorrhage [place] Office Visit 10/12/2012 4:00p [facility] Internal Jude Hawley 684 Impetigo Beba Marrero M.D. [place] Office Visit 09/11/2012 10:20a [facility] Internal Jude Hawley 300.00 Anxiety State Unspec Beba Marrero M.D. [place] Office Visit 07/10/2012 10:40a [facility] Internal Jude Hawley 300.00 Anxiety State Unspec Beba Marrero M.D. [place] Office Visit 06/12/2012 10:20a [facility] Internal Jude Hawley 300.00 Anxiety State Unspec Beba Marrero M.D. [place] Office Visit 05/26/2012 10:30a [facility] Internal Ana 789.04 Pain Abdominal Left Medicine - [place], [place] N.P. Office Visit 01/19/2012 11:00a [facility] Internal Jude Hawley V70.0 Examination General Medicine - Cindy Marrero Medical Routine AT [facility] 530.81 Esophageal Reflux 726.19 Shoulder Disorders Other Spec Plan of Treatment Future Appointment(s):03/14/2019 10:00 am - Laura Sol M.D. at [facility].03/12/2019 10:00 am - Danial Reinoso MD at [facility].01/15/2019 - Danial Reinoso MDG57.62 Lesion of plantar nerve, left lower limbFollow up:Follow Up: pre op H&P
[2019-02-05 11:55] VITALS: BP 121/84
--- NOTE | 2019-02-05 12:15 | UC ---
Throat Pain/Nasal Faisal HPI - HPI Summary HPI Summary: 64-year-old male presents with 5 day history of a nonproductive cough. Associated with some mild nasal congestion. Denies fever, chills, sore throat, chest pain, shortness of breath, wheezing, abdominal pain, nausea, or vomiting. - History of Current Complaint Chief Complaint: UCGeneralIllness Stated Complaint: COUGH Time Seen by Provider: 02/05/19 12:12 Hx Obtained From: Patient Pain Intensity: 0 - Allergies/Home Medications Allergies/Adverse Reactions: Allergies Allergy/AdvReac Type Severity Reaction Status Date / Time No Known Allergies Allergy Verified 02/05/19 11:44 PMH/Surg Hx/FS Hx/Imm Hx GI/ History: Gastroesophageal Reflux Psychological History: Anxiety, Depression - Surgical History Surgical History: Yes Surgery Procedure, Year, and Place: LT ROTATOR CUFF 2010 [facility]. Sigmoid colectomy 2012 [facility]. TONSILLECTOMY A CHILD. Rt PINKY TRIGGER FINGER. LEFT KNEE [facility] 2017. L forearm tendon repair 2018. lt wrist. ORAL SURGERY - Family History Known Family History: Positive: Cardiac Disease - father - CABG at 92 - Social History Occupation: Retired Lives: With Family Alcohol Use: Daily Alcohol Amount: a couple beers daily Substance Use Type: None Smoking Status (MU): Current Some Day Smoker Type: Cigars Amount Used/How Often: RARE CIGAR SUMMERTIME Have You Smoked in the Last Year: Yes Household Exposure Type: Cigars - Immunization History Most Recent Influenza Vaccination: 2011 Most Recent Tetanus Shot: UTD Most Recent Pneumonia Vaccination: NEVER Review of Systems All Other Systems Reviewed And Are Negative: Yes Constitutional: Negative: Fever, Chills Eyes: Negative: Drainage, Eye Redness ENT: Positive: Nasal Discharge, Sinus Congestion. Negative: Sore Throat, Ear Ache, Sinus Pain/Tenderness Respiratory: Positive: Cough. Negative: Shortness Of Breath Cardiovascular: Negative: Palpitations, Chest Pain Gastrointestinal: Negative: Abdominal Pain, Vomiting, Diarrhea, Nausea Genitourinary: Positive: Negative Neurological: Positive: Negative Psychological: Positive: Negative Is Patient Immunocompromised?: No Physical Exam - Summary Physical Exam Summary: GENERAL APPEARANCE: Well developed, well nourished, alert and cooperative, and appears to be in no acute distress. EYES: Conjunctiva clear. No drainage. EARS: External auditory canals and tympanic membranes clear, hearing grossly intact. NOSE: Mild nasal congestion. THROAT: Pharyngeal cobblestoning. Tonsils surgically absent. Uvula midline. NECK: Neck supple, non-tender without lymphadenopathy. CARDIAC: Normal S1 and S2. No S3, S4 or murmurs. Rhythm is regular. There is no peripheral edema, cyanosis or pallor. Extremities are warm and well perfused. Capillary refill is less than 2 seconds. Peripheral pulses intact. LUNGS: Clear to auscultation without rales, rhonchi, wheezing or diminished breath sounds. Non-productive cough. ABDOMEN: Positive bowel sounds. Soft, nondistended, nontender. No guarding or rebound. No masses or hepatosplenomegally. MUSKULOSKELETAL: ROM intact to all extremities. No joint erythema or tenderness. Normal muscular development. Normal gait. SKIN: Skin normal color, texture and turgor with no lesions or eruptions. Triage Information Reviewed: Yes Vital Signs: Initial Vital Signs Temp 99.5 F 02/05/19 11:47 Pulse 67 02/05/19 11:47 Resp 18 02/05/19 11:47 BP 121/84 02/05/19 11:47 Pulse Ox 98 02/05/19 11:47 Vital Signs Reviewed: Yes Throat Pain/Nasal Course/Dx - Course Course Of Treatment: 64-year-old male presents with 5 day history of a nonproductive cough. Associated with some mild nasal congestion. Denies fever, chills, sore throat, chest pain, shortness of breath, wheezing, abdominal pain, nausea, or vomiting. Afebrile. Vital signs stable. Exam remarkable for some mild nasal congestion , pharyngeal cobblestoning, and a nonproductive cough. Suspect that he has an acute bronchitis. Recommending symptomatic treatment at this time including Tessalon Perles one capsule every 8 hours as needed for cough. He is to follow- up with his primary care provider in 5 days if symptoms do not improve. Anticipatory guidance and warning symptoms were reviewed the patient. Verbalizes understanding and agrees with plan of care. - Differential Dx/Diagnosis Differential Diagnosis/HQI/PQRI: Influenza, Sinusitis, URI, Other - Pneumonia Provider Diagnosis: Acute bronchitis Discharge - Sign-Out/Discharge Documenting (check all that apply): Patient Departure All imaging exams completed and their final reports reviewed: No Studies - Discharge Plan Condition: Stable Disposition: HOME Prescriptions: Benzonatate CAP* [Tessalon 100 MG CAP*] 100 mg PO TID PRN #30 cap PRN Reason: Cough Patient Education Materials: Acute Bronchitis (ED) Referrals: Jude Marrero MD [Primary Care Provider] - Additional Instructions: Your history and exam are consistent with acute bronchitis which is most often caused by a viral infection. Viral infections do not respond to antibiotics and are limited to the treatment of symptoms. Viral infections typically run their course in 7-10 days. Be aware that the cough with bronchitis may persist for 2-3 weeks even if other symptoms have improved. Get plenty of rest. Drink plenty of fluids. Run a cool mist humidifer in your room at night. Take over the counter acetaminophen (Tylenol) or ibuprofen (Advil, Motrin) according to directions as needed for pain or fever. Take Tessalon Perles 1 cap every 8 hours as needed for cough. Return here or follow up with your primary care provider in 5 days if symptoms do not improve. Seek immediate medical attention in the emergency room if you have fever greater than 100.5 F despite taking acetaminophen or ibuprofen, have chest pain , difficulty breathing, or have any worsening of symptoms. - Billing Disposition and Condition Condition: STABLE Disposition: Home - Attestation Statements Provider Attestation: Per institutional requirements, I have reviewed the chart, however, I was not consulted specifically or made aware of this patient by the midlevel provider. I did not personally evaluate, interact with , or disposition this patient.
== END 2019-02-05 12:37 | disposition home or self-care (01) ==
LOC: UCEAST 11:16
DX: J20.9 Acute bronchitis, unspecified (principal); R09.81 Nasal congestion; K21.9 Gastro-esophageal reflux disease without esophagitis; F41.9 Anxiety disorder, unspecified; F32.9 Major depressive disorder, single episode, unspecified; Z72.0 Tobacco use
CPT/HCPCS: 99212; G0463

== ENCOUNTER 2019-05-30 10:34 | Emergency (ER) | payer MEDICARE ==
[2019-05-30 11:04] VITALS: BP 126/88
--- NOTE | 2019-05-30 12:06 | UC ---
Shoulder Pain HPI - HPI Summary HPI Summary: ONSET OF LEFT SHOULDER PAIN AND DECREASED RANGE OF MOTION AFTER DOING SOME HEAVY LIFTING YESTERDAY. NO DISCRETE INJURY/TRAUMA. PATIENT DENIES NUMBNESS/ TINGLING. HAS A HISTORY OF ROTATOR CUFF TENDINOPATHY STATUS POST SURGERY WITH DR. WISE A NUMBER OF YEARS AGO. - History of Current Complaint Chief Complaint: UCUpperExtremity Stated Complaint: SHOULDER PAIN Time Seen by Provider: 05/30/19 11:26 Hx Obtained From: Patient Onset/Duration: Gradual Onset, Lasting Days, Still Present Timing: Constant Severity Initially: Moderate Severity Currently: Moderate Location Of Pain: Is Discrete @ - LEFT SHOULDER Pain Intensity: 7 Pain Scale Used: 0-10 Numeric Character: Sharp Aggravating Factor(s): Movement Alleviating Factor(s): Rest Associated Signs And Symptoms: Positive: Negative - Allergies/Home Medications Allergies/Adverse Reactions: Allergies Allergy/AdvReac Type Severity Reaction Status Date / Time No Known Allergies Allergy Verified 05/30/19 11:05 PMH/Surg Hx/FS Hx/Imm Hx Other Cancer History: SKIN CANCER - Surgical History Surgical History: Yes Surgery Procedure, Year, and Place: LT ROTATOR CUFF 2011 [facility]. Sigmoid colectomy 2013 [facility]. TONSILLECTOMY A CHILD. Rt PINKY TRIGGER FINGER. LEFT KNEE [facility] 2017. L forearm tendon repair 2018. lt wrist. ORAL SURGERY - Family History Known Family History: Positive: Cardiac Disease - father - CABG at 92 - Social History Alcohol Use: Daily Alcohol Amount: a couple beers daily Substance Use Type: None Smoking Status (MU): Current Some Day Smoker Type: Cigars Amount Used/How Often: RARE CIGAR SUMMERTIME Have You Smoked in the Last Year: Yes Household Exposure Type: Cigars - Immunization History Most Recent Influenza Vaccination: 2011 Most Recent Tetanus Shot: UTD Most Recent Pneumonia Vaccination: NEVER Review of Systems All Other Systems Reviewed And Are Negative: Yes Constitutional: Positive: Negative Skin: Positive: Negative Respiratory: Positive: Negative Cardiovascular: Positive: Negative Gastrointestinal: Positive: Negative Musculoskeletal: Positive: Arthralgia, Decreased ROM Physical Exam Triage Information Reviewed: Yes Appearance: Well-Appearing, No Pain Distress, Well-Nourished Vital Signs: Initial Vital Signs Temp 98.1 F 05/30/19 11:02 Pulse 71 05/30/19 11:02 Resp 16 05/30/19 11:02 BP 126/88 05/30/19 11:02 Pulse Ox 100 05/30/19 11:02 Vital Signs Reviewed: Yes Eyes: Positive: Conjunctiva Clear ENT: Positive: Hearing grossly normal Neck: Positive: Supple Respiratory: Positive: No respiratory distress, No accessory muscle use Cardiovascular: Positive: Pulses Normal Abdomen Description: Positive: Soft Musculoskeletal: Positive: No Edema, ROM Limited @ - BILATERAL SHOULDERS LEFT > RIGHT, Other: - EXQUISITELY TENDER LEFT SHOULDER Neurological: Positive: Alert, Muscle Tone Normal Psychological: Positive: Age Appropriate Behavior Skin: Negative: Rashes Diagnostics - Radiology LEFT SHOULDER XRAYS Radiology Interpretation Completed By: Radiologist Summary of Radiographic Findings: MILD OSTEOARTHRITIC CHANGE. Shoulder Course/Dx - Course Course Of Treatment: SHOULDER X-RAY UNREMARKABLE TODAY. PATIENT HAS ORTHOPEDIC FOLLOW-UP APPOINTMENT ALREADY SCHEDULED FOR TOMORROW. HE MAY BENEFIT FROM [facility]. SLING PROVIDED FOR COMFORT. OTC MEDICATIONS NEEDED. - Differential Dx/Diagnosis Provider Diagnosis: Left shoulder pain Discharge - Sign-Out/Discharge Documenting (check all that apply): Patient Departure All imaging exams completed and their final reports reviewed: Yes - Discharge Plan Condition: Stable Disposition: HOME Patient Education Materials: Shoulder Pain (ED) Referrals: Jude Marrero MD [Primary Care Provider] - If Needed Additional Instructions: MILD OSTEOARTHRITIC CHANGE SEEN ON LEFT SHOULDER X-RAY TODAY. NOTHING TO EXPLAIN YOUR ACUTE SYMPTOMS. YOU MAY BENEFIT FROM [facility]. KEEP YOUR ORTHOPEDIC APPOINTMENT TOMORROW FOR FURTHER EVALUATION. OTC MEDICATIONS NEEDED FOR DISCOMFORT. WEAR THE SLING NEEDED. - Billing Disposition and Condition Condition: STABLE Disposition: Home
== END 2019-05-30 12:17 | disposition home or self-care (01) ==
LOC: UCEAST 10:34
DX: M25.512 Pain in left shoulder (principal); F17.210 Nicotine dependence, cigarettes, uncomplicated
CPT/HCPCS: 99211; G0463

== ENCOUNTER 2019-11-05 08:50 | Day surgery (SDC) | payer MEDICARE ==
[2019-11-05] MEDS ORDERED: Cyclopentolate 1% OPTH.SOL* 2 ML BTL ONE (09:12)
[2019-11-05] MEDS ORDERED: Lidocaine 1% MPF ** 5 ML VIAL ONE (09:12)
[2019-11-05] MEDS ORDERED: Phenylephrine OPHTH SOL 2.5%* 2 ML ONE (09:12)
[2019-11-05] MEDS ORDERED: Tetracaine 0.5% OPTH.SOL 4 ML* 1 DROP BTL ONE (09:12)
[2019-11-05] MEDS ORDERED: Tropicamide 1% OPTH.SOL* BTL ONE (09:12)
[2019-11-05] MEDS ORDERED: Neomycin/Polymy/Dex OPHTH.OIN* 3.5 GM ONE (09:12)
[2019-11-05] MEDS ORDERED: acetaZOLAMIDE TAB* 250 MG ONE (09:12)
[2019-11-05] MEDS ORDERED: Povidone Iodine 5% OPTH* 30 ML BTL ONE (09:12)
[2019-11-05] MEDS ORDERED: Ketorolac 0.5% OPHTH (NF) 0.5 % 5 ML BTL ONE (09:12)
[2019-11-05] MEDS ORDERED: Midazolam* 1 MG/ML 2 ML VIAL (2 MG) ONE ×2 (10:11→10:31)
[2019-11-05 11:22] VITALS: BP 129/69
--- NOTE | 2019-11-05 12:33 | OP ---
DATE OF OPERATION: 11/05/2019 - [facility] DATE OF : 1955. SURGEON: Pritesh Alba MD ANESTHESIA: Monitored anesthesia care. PREOPERATIVE DIAGNOSIS: Cataract, right eye. POSTOPERATIVE DIAGNOSIS: Cataract, right eye. OPERATIVE PROCEDURE: Extracapsular cataract extraction of the right eye with intraocular lens implant. IMPLANT: SN60WF 20.5 diopter lens to the right eye. COMPLICATIONS: None. DESCRIPTION OF PROCEDURE: The patient was given phenylephrine 2.5 % and cyclopentolate 1% eye drops to the operative eye in the preoperative area. The patient was taken to the operating room where a time-out was taken to identify the correct patient, site, and side of surgery. The patient's right eye was prepped and draped in the usual sterile fashion with 5% Betadine. A second time- out was taken to verify the correct patient, side, and site of surgery, as well as the correct lens implant. A lid speculum was placed to the right eye. A 1mm paracentesis blade was used to make a clear corneal incision. Preservative-free 1% lidocaine was injected into the anterior chamber. DisCoVisc was then injected into the anterior chamber. A 2.75 mm keratome blade was used to make a triplanar incision. A cystotome initiated a capsulorrhexis, which was completed with Utrata forceps in a continuous and curvilinear manner. Hydrodissection of the lens was performed with BSS on a cannula. The lens could be spun in a capsular bag. The phacoemulsification handpiece was used with a divide-and- conquer technique to remove the nucleus. The I/A handpiece then removed the residual cortical lens material. DisCoVisc was injected to inflate the capsular bag. The planned SN60WF 20.5 diopter lens was injected into the capsular bag. The residual DisCoVisc was removed from the eye with the I/A handpiece. The corneal incisions were hydrated and no leaks occurred at physiologic pressure around 20 mmHg per palpation. The lid speculum was removed and drapes were removed. Maxitrol ointment was placed to the surface of the operative eye. An adhesive patch and shield was then placed on the operative eye. The patient was taken to the postoperative area in stable condition. [id number]/[facility] #: [id number] [facility]
== END 2019-11-05 11:31 | disposition home or self-care (01) ==
LOC: OREAST 08:50
PROVIDERS: ATTEND Student in an Organized Health Care Education/Training Program
DX: H25.11 Age-related nuclear cataract, right eye (principal); H35.372 Puckering of macula, left eye; Z72.0 Tobacco use; F90.9 Attention-deficit hyperactivity disorder, unspecified type; F41.8 Other specified anxiety disorders; G89.29 Other chronic pain
CPT/HCPCS: A9270-GY; J2250; V2632